=== PATIENT | female | born 1950 | race Caucasian/White ===

== ENCOUNTER 2019-10-28 11:04 | Outpatient (CLI) | payer MEDICARE, OTHER, SELFPAY ==
--- NOTE | ~2019-10-28 | US_ITS ---
EXAMINATION: US thyroid EXAM DATE: 10/28/2019 15:05 INDICATION: Goiter follow-up. Previous left thyroid nodule biopsy. TECHNIQUE: Multiple grayscale and Doppler images of the thyroid were obtained (by a technologist who performed the scan) and subsequently reviewed. Individual nodules and recommendations may be reporte d in accordance with TI-RADS system as designated by the 2017 ACR White Paper TI-RADS committee. Comp juvencio is made to prior examination from 10/05/2018, outside study dated 03/31/2018. FINDINGS: The right thyroid lobe measures 4.9 x 2.0 x 1.3 cm, the left measuring 4.6 x 1.8 x 1.2 cm. These dime nsions are mildly enlarged. There are multiple subcentimeter thyroid nodules (largest dimension 7 mm) , all appear unchanged compared to previous examination, not likely to be clinically significant. IMPRESSION: Multinodular goiter unchanged. Consider longer interval, 2 year follow-up thyroid ultraso und. Reviewed, dictated and finalized at location A. IMPRESSION: Multinodular goiter unchanged. Consider longer interval, 2 year fol low-up thyroid ultrasound.
== END 2019-10-28 11:05 | disposition home or self-care (01) ==
LOC: ANHIMG 11:10
PROVIDERS: PCP Internal Medicine; Visit Provider Otolaryngology
DX: E04.2 Nontoxic multinodular goiter (principal)
CPT/HCPCS: 76536

== ENCOUNTER 2019-11-01 08:25 | Outpatient (CLI) | payer MEDICARE, OTHER, SELFPAY | END 2019-11-01 08:26 | disposition home or self-care (01) | PROVIDERS: PCP Internal Medicine; Visit Provider Internal Medicine Gastroenterology | DX: Z01.812 Encounter for preprocedural laboratory examination (principal); Z20.828 Contact with and (suspected) exposure to other viral communicable diseases | CPT/HCPCS: 87635; C9803; U0003 ==

== ENCOUNTER 2019-11-04 01:10 | Day surgery (SDC) | payer MEDICARE, OTHER, SELFPAY ==
[2019-10-28 13:31] VITALS: BMI 28.5
[2019-11-04 08:24] VITALS: BP 111/68; PULSE 80; RESP 18; TEMP 36.1; O2SAT 99
[2019-11-04] MEDS: LACTATED RINGERS 1,000 ML 150 ML IV CONT (08:28)
--- NOTE | 2019-11-04 08:38 | PM.HPGS ---
History of Present Illness History of Present Illness Consent: Risks, benefits, and alternatives have been discussed and questions answered. Patient agrees to proceed with procedure. Chief complaint: neoplasm screening Narrative: Tamie German is a 69 year old W female referred for screening colonoscopy. Last colonoscopy was over 10 years ago. Patient was last seen by our service in August of 2017 found to have a paraesophageal hernia surgical recommendation was given to her. Unfortunately she never saw a surgeon and chills she had torsion of for esophageal hernia was seen [facility] for surgical intervention. Patient has a chronic history of intermittent diarrhea and constipation there is a diagnosis of irritable bowel syndrome. She does have a daughter with ulcerative colitis. Patient is on no blood seen medication. [facility] Past Medical History Medical History Anemia Anxiety CAD (coronary artery disease) DVT (deep venous thrombosis) Hyperlipidemia Hypothyroidism Surgical History Surgical History History of coronary artery stent placement x1, 2008 Family History Family History Mother Diabetes mellitus Family history of cardiovascular disease Sibling Diabetes mellitus Family history of cardiovascular disease Social History Social History Smoking status: Former smoker Alcohol intake: current Meds Home Medications and Allergies Home Medications Medication Instructions Recorded Confirmed Type atorvastatin 40 mg PO DAILY 10/28/19 10/28/19 History levothyroxine 50 mcg PO DAILY 10/28/19 11/04/19 History sertraline 100 mg PO DAILY 10/28/19 10/28/19 History Allergies Allergy/AdvReac Type Severity Reaction Status Date / Time rosuvastatin Allergy Unknown Anxiety Verified 11/04/19 08:22 Vital Signs Vital Signs - 24 hr 11/04/19 08:24 Temperature 36.1 C L Pulse Rate 80 Respiratory Rate 18 Blood Pressure 111/68 Pulse Oximetry 99 Exam Const: Orientation/consciousness: patient oriented x3 Resp: Auscultation: clear to auscultation bilaterally Cardio: Rate: regular rate Rhythm: regular rhythm Heart sounds: no murmurs GI: GI Palp: Yes Soft to palpation, No Tenderness to palpation present (GI), Yes No hepatosplenomegaly present and No Palpable mass present Auscultation: normal bowel sounds Neuro: General: patient oriented x3 and no focal motor deficits Extrem: General: no pedal edema Assessment and Plan Additional Plan Screening colonoscopy in average risk patient
--- NOTE | 2019-11-04 08:40 | WPDANESEPPF ---
Anes - Initial Pre Proc Eval Procedure: Operation Date: 11/04/19 09:00 Proposed Procedures p Screening Colonoscopy - Adi Roberson MD Date/Time: 11/04/19 08:40 Surgeon: Adi Roberson MD Pre Op Diagnosis: neoplasm screening Patient Data Age: 69 Gender: F Height: 1.6 m Weight: 72.4 kg Last Vital Signs Temp 36.1 C L 11/04/19 08:24 Pulse 80 11/04/19 08:24 Resp 18 11/04/19 08:24 BP 111/68 11/04/19 08:24 Pulse Ox 99 11/04/19 08:24 Allergies Allergy/AdvReac Type Severity Reaction Status Date / Time rosuvastatin Allergy Unknown Anxiety Verified 11/04/19 08:22 Home Medications Medication Instructions Recorded Confirmed Type atorvastatin 40 mg PO DAILY 10/28/19 10/28/19 History levothyroxine 50 mcg PO DAILY 10/28/19 11/04/19 History sertraline 100 mg PO DAILY 10/28/19 10/28/19 History Patient hx anesthesia problems: none Family hx anesthesia problems: none PMFSH Past Medical History Medical History Anemia Anxiety CAD (coronary artery disease) DVT (deep venous thrombosis) Hyperlipidemia Hypothyroidism Surgical History Surgical History History of coronary artery stent placement x1, 2009 Family History Family History Mother Diabetes mellitus Family history of cardiovascular disease Sibling Diabetes mellitus Family history of cardiovascular disease Social History Social History Smoking status: Former smoker Alcohol intake: current Anes - Eval Final PreProcedure Day of Procedure 11/04/19 08:40 Patient weight: overweight Heart: regular rate and rhythm Lungs: clear to auscultation and normal air movement Airway: Mallampati scale class II Neurological: alert and oriented Last oral intake: >/= 8 hours ASA classification: III Emergent: no Anesthetic plan: proceed Anesthesia type and monitoring: general GIVS and standard monitoring Informed Consent: The patient's anesthetic plan and its attendant risks and benefits were discussed with the patient/family/POA. Questions were solicited and answers provided to the satisfaction of the patient/family/POA.
[2019-11-04] MEDS: SIMETHICONE ORAL SUSPENSION 20 MG/0.3 ML 30 ML BOTTLE 0.6 ML IRRIGATION (09:22)
[2019-11-04 09:32] VITALS: BP 100/50; PULSE 67; RESP 18; O2SAT 100
[2019-11-04 09:42] VITALS: BP 99/57; PULSE 75; RESP 18; O2SAT 99
[2019-11-04 09:52] VITALS: BP 105/61; PULSE 73; RESP 18; O2SAT 97
== END 2019-11-04 09:59 | disposition home or self-care (01) ==
PROVIDERS: PCP Internal Medicine; Visit Provider Internal Medicine Gastroenterology
PROC: 0DJD8ZZ Inspection of Lower Intestinal Tract, Via Natural or Artificial Opening Endoscopic (ICD-10-PCS; CPT 45378; principal; 2019-11-04 09:00)
DX: Z12.11 Encounter for screening for malignant neoplasm of colon (principal); K64.1 Second degree hemorrhoids; K64.4 Residual hemorrhoidal skin tags; K57.30 Diverticulosis of large intestine without perforation or abscess without bleeding; K63.89 Other specified diseases of intestine; I25.10 Atherosclerotic heart disease of native coronary artery without angina pectoris; E78.5 Hyperlipidemia, unspecified; D64.9 Anemia, unspecified; E03.9 Hypothyroidism, unspecified; F41.9 Anxiety disorder, unspecified; Z86.718 Personal history of other venous thrombosis and embolism; Z87.891 Personal history of nicotine dependence; Z95.5 Presence of coronary angioplasty implant and graft
CPT/HCPCS: 45380; 88305; J2704; J7120

== ENCOUNTER 2020-01-30 06:24 | Emergency (ER) | payer MEDICARE, OTHER, SELFPAY ==
[2020-01-30] VITALS (8 sets, daily range): BP systolic 90–143; BP diastolic 55–63; PULSE 94–110; RESP 20–24; TEMP 37.3; O2SAT 92–97
--- NOTE | ~2020-01-30 | XR_ITS ---
EXAMINATION: XR chest 1V portable DATE: 01/30/2020 07:41 INDICATION: Shortness of breath. TECHNIQUE: A single frontal view of the chest was obtained. COMPARISON: None. FINDINGS: The patient is rotated to her left. A calcified right lung nodule and calcified right hilar lymph nodes are consistent with old granulomatous disease. There is a small left pleural effusion. T here are airspace opacities in left mid and lower lung zones. No pneumothorax. The heart size is norm al. IMPRESSION: 1. Airspace opacities in left mid and lower lung zones, consistent with atelectasis versus pneumonia. 2. Small left pleural effusion. Reviewed, dictated and finalized at location A. IMPRESSION: 1. Airspace opacities in left mid and lower lung zones, consistent with atelect asis versus pneumonia. 2. Small left pleural effusion.
--- NOTE | ~2020-01-30 | CT_ITS ---
EXAMINATION: CT brain wo con DATE: 01/30/2020 07:35 INDICATION: Dizziness. Weakness. TECHNIQUE: Computed tomography (CT) of the head was performed without intravenous contrast. The mA wa s adjusted according to patient size. Iterative reconstruction technique was employed. The dose-lengt h product was 681.00 mGy-cm. COMPARISON: None FINDINGS: There is no intracranial hemorrhage, acute infarction, or abnormal intracranial mass lesion . The ventricles are normal in size. There are likely changes of ocular lens replacement surgeries. T here is mild mucosal thickening in the paranasal sinuses. There are bilateral mastoid effusions. IMPRESSION: 1. Normal brain. Reviewed, dictated and finalized at location A. IMPRESSION: 1. Normal brain.
--- NOTE | 2020-01-30 06:34 | ECG_ITS ---
Measurements Intervals [place] Rate: 111 P: 60 [place]: 152 QRS: -2 QRSD: 81 T: 0 QT: 324 QTc: 441 Interpretive Statements SINUS TACHYCARDIA POSSIBLE LEFT ATRIAL ENLARGEMENT DELAYED PRECORDIAL R/S TRANSITION BORDERLINE ST-T WAVE ABNORMALITY- ANTEROLAT/INF LEADS ABNORMAL ECG Electronically Signed On 01-30-2020 15:22:48 CDT by Jamal Goins D.O.
--- NOTE | 2020-01-30 06:41 | ED.WEAKNESS ---
HPI - Weakness General Chief complaint: Weakness <Donna Lopes MD - Last Filed: 01/30/20 07:10> Stated complaint: weakness <Donna Lopes MD - Last Filed: 01/30/20 07:10> Time Seen by Provider: 01/30/20 06:39 <Donna Lopes MD - Last Filed: 01/30/20 07:10> Source: patient and EMS <Donna Lopes MD - Last Filed: 01/30/20 07:10> Mode of arrival: EMS <Donna Lopes MD - Last Filed: 01/30/20 07:10> Limitations: no limitations <Donna Lopes MD - Last Filed: 01/30/20 07:10> History of Present Illness HPI Narrative: Patient is a 69-year-old female with a history of hypothyroidism who presents for evaluation of subjective fever, chills, myalgias, cough and weakness. Patient reports she started feeling unwell on Friday, felt quite weak and was nauseated with numerous episodes of emesis. Patient called her primary care physician to see if she could get medication for the nausea and was referred to the emergency department but decided not to be evaluated on Friday. Patient states she has been worsening since that time. The dizziness that she had initially has now resolved. Patient states that she was given Zofran by EMS which improved her nausea. Patient states her family recently visited from [place] in [facility], but they were well without any symptoms. She states that she masks when going out in the community, otherwise has been isolating at home. Patient denies current chest pain, she does endorse some shortness of breath. She denies any rash, leg pain, leg swelling. <Donna Lopes MD - Last Filed: 01/30/20 07:10> Related Data Home medications: Home Medications Medication Instructions Recorded Confirmed atorvastatin 40 mg PO DAILY 10/28/19 10/28/19 levothyroxine 50 mcg PO DAILY 10/28/19 11/04/19 sertraline 100 mg PO DAILY 10/28/19 10/28/19 <Donna Lopes MD - Last Filed: 01/30/20 07:10> Allergies/Adverse reactions: Allergies Allergy/AdvReac Type Severity Reaction Status Date / Time rosuvastatin Allergy Unknown Anxiety Verified 01/30/20 06:38 <Donna Lopes MD - Last Filed: 01/30/20 07:10> Review of Systems Review of Systems: Narrative: CONSTITUTIONAL: Reports subjective fever, chills EYES: Denies visual changes, redness, or discharge. ENT: Denies rhinorrhea, congestion, sore throat, or otalgia. CARDIOVASCULAR: Denies chest pain, palpitations, or edema. RESPIRATORY: Reports cough and shortness of breath GASTROINTESTINAL: Denies abdominal pain, reports nausea and vomiting, denies diarrhea. GENITOURINARY: Denies dysuria or hematuria. SKIN: Denies rash or itching. MUSCULOSKELETAL: Denies back pain, joint pain, reports myalgias NEUROLOGIC: Denies headache, numbness, reports feeling diffusely weak <Donna Lopes MD - Last Filed: 01/30/20 07:10> PMFSH Past Medical History Medical History: Medical History Anemia Anxiety CAD (coronary artery disease) DVT (deep venous thrombosis) Hyperlipidemia Hypothyroidism <Donna Lopes MD - Last Filed: 01/30/20 07:10> Surgical History Surgical History: Surgical History History of coronary artery stent placement 2008 <Donna Lopes MD - Last Filed: 01/30/20 07:10> Social History Social History: Social History Smoking status: Former smoker Alcohol intake: current <Donna Lopes MD - Last Filed: 01/30/20 07:10> Exam Narrative: Exam Narrative: GENERAL: Awake, alert, conversant, fatigued appearing HEAD: Normocephalic, atraumatic. EYES: PERRLA and EOMI. ENT: Nares clear, no rhinorrhea or epistaxis. Mucous membranes dry NECK: Supple. CHEST: Hypoxemia, 92% on room air, no respiratory distress, breathing even and non labored HEART: Tachycardic rate, sinus rhythm ABDOMEN:Non
[2020-01-30 06:57] LABS: Alveolar/Arterial O2 Gradient 38.9 mmHg; Base Excess ABG 1.1 mEq/l (+/-2.0); Carboxyhemoglobin 0.9 % THb (0-2.0); Device ROOM AIR; Fractional Inspired Oxygen 21 %; HCO3 ABG 25.1 mEq/l (22.0-26.0); Methemoglobin ABG 0.2 %THb (0-1.5); Modified Allen's Test Pass; Oxygen Content ABG 17.1 %vol (16.0-22.0); Oxygen Saturation ABG 93.6 % (95.0-100.0); Oxyhemoglobin 91.4 % THb (90.0-100.0); PO2 ABG 65.3 mmHg (80.0-100.0); PO2 FiO2 Ratio Arterial Blood 3.11 %; Reduced Hemoglobin 7.5 %THb (0-5.0); Site Drawn RIGHT RADIAL; Total Hemoglobin 13.3 g/dL (12.0-18.0); pH ABG 7.438 (7.350-7.450)
[2020-01-30 07:00] LABS: Glucose Point of Care 111 (65-105)
[2020-01-30] MEDS: SODIUM CHLORIDE 0.9% IV 1,000 ML 999 ML IV CONT (07:01)
[2020-01-30 07:34] LABS: Basophils Percent Auto 0.2 % (0.2-1.2); Eosinophils Percent Auto 0.1 % (0-4.4); Hemoglobin 12.2 g/dL (12.0-15.0); Immature Granulocyte Absolute 0.06 K/mm3 (0.00-0.031); Immature Granulocyte Percent A 0.6 % (0-0.5); Lymphocytes Absolute Auto 0.55 K/mm3 (0.9-3.2); Lymphocytes Percent Auto 5.8 % (18.3-44.2); Mean Corpuscular Volume 94.1 fl (80-100); Mean Platelet Volume 9.9 fl (7.4-10.4); Monocytes Absolute Auto 0.5 K/mm3 (0.1-0.6); Neutrophils Absolute Auto 8.4 K/mm3 (1.3-6.7); Neutrophils Percent Auto 88.3 % (45.5-73.1); Platelet Count Result 180 k/mm3 (150-375); Red Blood Count 3.93 M/mm3 (4.2-5.4); Red Cell Distribution Width 12.6 % (11.5-14.5); White Blood Count 9.5 K/mm3 (4.5-10.0)
[2020-01-30 07:49] LABS: Prothrombin Time 13.3 Seconds (11.1-14.7)
[2020-01-30] MEDS: METOCLOPRAMIDE HCL INJ 10 MG/2 ML VIAL IV PUSH (07:58)
[2020-01-30 08:01] LABS: Alanine Aminotransferase 16 U/L (4-35); Albumin Level 3.8 g/dL (3.5-5.1); Alkaline Phosphatase 65 U/L (38-126); Anion Gap 6 mmol/L (8-16); Aspartate Amino Transferase 21 U/L (14-36); Bilirubin,Total 0.6 mg/dL (0.2-1.3); Blood Urea Nitrogen 15 mg/dL (7-17); Calcium 8.8 mg/dL (8.4-10.2); Carbon Dioxide 25 mmol/L (22-30); Chloride 104 mmol/L (98-107); Estimated CRCL calculation 63 ml/min; Estimated Glomerular Filt Rate > 60; Glucose 108 mg/dL (65-105); Potassium 4.1 mmol/L (3.4-5.0); Sodium 135 mmol/L (137-145)
[2020-01-30 08:02] LABS: Partial Thromboplastin Time 27.7 SECONDS (22.3-36.8)
[2020-01-30 08:08] LABS: Add Urine Microscopic? YES; Appearance Urine Clear (Clear); Bacteria Urine Trace /hpf; Bilirubin Urine Negative (Negative); Blood Urine Negative (Negative); Color Urine Yellow (Yellow); Glucose Urine UA Negative (Negative); Ketones Urine Trace mg/dL (Negative); Leukocyte Esterase Ur Negative LEU/UL (Negative); Mucus Urine Rare /lpf; Nitrate Urine Negative (Negative); Protein Urine Negative (Negative); RBC Urine 0-2 /hpf (0-2); Specific Grav Ur 1.021 (1.001-1.035); Squamous Epithelial Cell Urine Rare /hpf (Few); Urobilinogen Urine Negative mg/dL (<2.0); WBC Urine 0-3 /hpf
[2020-01-30 08:09] LABS: Lactic Acid Reflex 0.9 mmol/L (0.7-2.1); NT Pro B Type Natriuretic Pept 168 PG/ML (5-100); Troponin I < 0.012 ng/mL (0.000-0.034)
[2020-01-30] MEDS: MECLIZINE HCL 25 MG TABLET PO (09:32)
[2020-01-31 12:10] LABS: SARS-CoV-2 RNA PCR Negative
[2020-02-03 07:00] LABS: Procalcitonin <0.10 ng/mL (<0.10)
== END 2020-01-30 11:30 | disposition home or self-care (01) ==
PROVIDERS: Emergency Medicine; Emergency Provider Emergency Medicine; PCP Internal Medicine
DX: J18.9 Pneumonia, unspecified organism (principal); R42 Dizziness and giddiness; Z20.828 Contact with and (suspected) exposure to other viral communicable diseases; E03.9 Hypothyroidism, unspecified; F41.9 Anxiety disorder, unspecified; I25.10 Atherosclerotic heart disease of native coronary artery without angina pectoris; E78.5 Hyperlipidemia, unspecified; Z86.2 Personal history of diseases of the blood and blood-forming organs and certain disorders involving the immune mechanism; Z95.5 Presence of coronary angioplasty implant and graft; Z87.891 Personal history of nicotine dependence
CPT/HCPCS: 36415; 36600; 51701; 70450; 71045; 80053; 81001; 82375; 82805; 82948; 83050; 83605; 83880; 84145; 84484; 85025; 85610; 85730; 86140; 87040; 87635; 93005; 96361; 96365; 96367; 96375; 99284; A9270; C9803; J0131; J0456; J0696; J2765; J7030; U0003

== ENCOUNTER 2020-04-17 11:28 | Inpatient (IN) | payer MEDICARE, OTHER, SELFPAY ==
[2020-04-17] VITALS (10 sets, daily range): BP systolic 101–128; BP diastolic 48–89; PULSE 86–130; RESP 16–27; TEMP 36.3–36.7; O2SAT 86–99; BMI 27.0
--- NOTE | ~2020-04-17 | XR_ITS ---
EXAMINATION: XR chest 1V portable DATE: 04/17/2020 15:47 INDICATION: Hypoxia. Frontal headache. TECHNIQUE: A single frontal view of the chest was obtained. COMPARISON: Chest single view 01/30/2020 FINDINGS: The patient is rotated to her left. There is mild atelectasis at left lung base. Calcified right lung nodules and calcified right hilar and mediastinal lymph nodes are consistent with old gran ulomatous disease. There is chronic blunting of left lateral costophrenic angle. No pneumothorax. The heart size is normal. IMPRESSION: 1. Chronic blunting of left lateral costophrenic angle, which may be a prominent fat pad or small ple ural effusion. Consider a lateral radiograph. 2. Mild atelectasis at left lung base. Reviewed, dictated and finalized at location A. SITION OPERATOR IMPRESSION: 1. Chronic blunting of left lateral costophrenic angle, which may be a prominen t fat pad or small pleural effusion. Consider a lateral radiograph. 2. Mild atelectasis at left lung base.
--- NOTE | ~2020-04-17 | CT_ITS ---
EXAMINATION: CT brain wo con INDICATION: Headache COMPARISON: 01/30/2020 TECHNIQUE: Standard unenhanced head CT. The dose-length product (DLP) was 681.00 mGy-cm. The mA was a djusted according to patient size. Iterative reconstruction technique was employed. FINDINGS: There is no acute intraparenchymal hemorrhage. No evidence of mass lesion. No evidence of a cute infarction. There is mild periventricular and subcortical hypodensity probably related to small vessel ischemic disease. There is mild prominence of the sulci and ventricles related to cerebral atr ophy. Intracranial calcified cerebral atherosclerosis is noted. There are no extra-axial collections. There is no mass effect or midline shift. Changes in the globes are likely from ocular lens surgery. Bilateral mastoid effusions are noted. IMPRESSION: 1. No acute intracranial abnormality. 2. Age related findings. Reviewed, dictated and finalized at location A. O DISPATCHER
--- NOTE | 2020-04-17 11:35 | ECG_ITS ---
Measurements Intervals [place] Rate: 84 P: 61 [place]: 126 QRS: -15 QRSD: 80 T: -5 QT: 381 QTc: 451 Interpretive Statements SINUS RHYTHM VOLTAGE CRITERIA FOR LVH BORDERLINE ST-T WAVE ABNORMALITY- INFERIOR LEADS BORDERLINE ECG Electronically Signed On 04-17-2020 11:39:44 HANDBAG STITCHER by Jaaml Goins D.O.
[2020-04-17 11:58] LABS: Add Urine Microscopic? YES; Appearance Urine Cloudy (Clear); Bilirubin Urine Negative (Negative); Blood Urine Negative (Negative); Color Urine Yellow (Yellow); Glucose Urine UA Negative (Negative); Ketones Urine Trace mg/dL (Negative); Leukocyte Esterase Ur Negative LEU/UL (Negative); Nitrate Urine Negative (Negative); Protein Urine 1+ mg/dL (Negative); RBC Urine 0-2 /hpf (0-2); Specific Grav Ur 1.015 (1.001-1.035); Squamous Epithelial Cell Urine Rare /hpf (Few); Urobilinogen Urine Negative mg/dL (<2.0); WBC Urine 0-3 /hpf
[2020-04-17 12:04] LABS: Glucose Point of Care 123 (65-105)
[2020-04-17] MEDS: MORPHINE SULFATE (*CRX) 4 MG/ML INJ IV PUSH (12:35)
[2020-04-17] MEDS: ONDANSETRON INJ 4 MG/2 ML VIAL IV PUSH (12:35)
[2020-04-17 12:50] LABS: Basophils Percent Auto 0.2 % (0.2-1.2); Hematocrit 38.3 % (37.0-47.0); Hemoglobin 12.8 g/dL (12.0-15.0); Immature Granulocyte Absolute 0.03 K/mm3 (0.00-0.031); Immature Granulocyte Percent A 0.2 % (0-0.5); Lymphocytes Absolute Auto 0.61 K/mm3 (0.9-3.2); Mean Corpuscular HGB Conc 33.4 g/dl (32-36); Mean Corpuscular Hemoglobin 31.1 pg (26-34); Mean Platelet Volume 9.4 fl (7.4-10.4); Monocytes Absolute Auto 0.4 K/mm3 (0.1-0.6); Monocytes Percent Auto 3.5 % (2.6-8.5); Neutrophils Absolute Auto 11.2 K/mm3 (1.3-6.7); Neutrophils Percent Auto 91.1 % (45.5-73.1); Platelet Count Result 231 k/mm3 (150-375); Red Blood Count 4.12 M/mm3 (4.2-5.4); Red Cell Distribution Width 12.4 % (11.5-14.5); White Blood Count 12.3 K/mm3 (4.5-10.0)
--- NOTE | 2020-04-17 12:51 | ED.GENADULT ---
HPI - General Adult General Chief complaint: Headache Stated complaint: HEADACHE/NAUSEA Time Seen by Provider: 04/17/20 12:09 Source: patient History of Present Illness HPI narrative: Patient is a 69 y/o female complaining bilateral frontal and occipital headache starting earlier today. She describes her pain as sharp and rate it as 10/10. She states that this is the worst headache she ever had. She took Tylenol and Ibuprofen, which did not help. She has some neck pain, nausea and vomiting. She denies any fever, chill or any focal weakness/numbness. Related Data Home Medications Medication Instructions Recorded Confirmed atorvastatin 40 mg PO DAILY 10/28/19 10/28/19 levothyroxine 50 mcg PO DAILY 10/28/19 11/04/19 sertraline 100 mg PO DAILY 10/28/19 10/28/19 hydrocodone-acetaminophen 1 tablet PO Q6H PRN 04/17/20 nitroglycerin 0.4 mg SUBLINGUAL Q5-15M PRN 04/17/20 04/17/20 Allergies Allergy/AdvReac Type Severity Reaction Status Date / Time rosuvastatin Allergy Unknown Anxiety Verified 04/17/20 18:50 Review of Systems Constitutional: Constitutional: Denies chills, Denies fever(s), Reports headache(s) and Denies weakness Eyes: Eyes: Denies blurry vision ENT: Reports headache(s) and Denies neck pain Cardiovascular: Cardiovascular: Denies chest pain and Denies dyspnea Respiratory: Respiratory: Denies cough and Denies dyspnea Gastrointestinal: Gastrointestinal: Denies abdominal pain, Denies diarrhea, Reports nausea and Reports vomiting Genitourinary: Genitourinary: Denies hematuria and Denies dysuria Musculoskeletal: Musculoskeletal: Denies back pain and Denies neck pain Neurologic: Reports headache(s) and Denies weakness [facility] Past Medical History Medical History (Updated 04/17/20 @ 19:05 by Irina Paz MD) Anemia Anxiety CAD (coronary artery disease) DVT (deep venous thrombosis) Hyperlipidemia Hypothyroidism Surgical History Surgical History History of coronary artery stent placement [id number] Family History Family History Mother Diabetes mellitus Family history of cardiovascular disease Sibling Diabetes mellitus Family history of cardiovascular disease Social History Social History Smoking packs per day: 2 Smoking cigarettes per day: 40.0 Years smoked: 40 Smoking pack-years: 80.00 Smoking status: Former smoker Tobacco type: cigarettes Alcohol intake: former Substance use: never Gender identity (if verbalized by the patient): Female Spiritual care concerns: No Exam Const: General: no acute distress and well developed Orientation/consciousness: oriented to person, oriented to place, oriented to time and patient oriented x3 HENMT: Head: normocephalic Ears: external ears normal General nose exam: Normal external nose present Eyes: General: appearance normal, both eyes and all related structures Conjunctivae: conjunctivae normal Neck: Neck: normal visual inspection and full ROM Chest: Chest palpation & inspection: normal inspection of the chest and no tenderness Resp: Effort & Inspection: normal respiratory effort Auscultation: clear to auscultation bilaterally Cardio: Rate: regular rate Rhythm: regular rhythm GI: GI Palp: No abdominal tenderness and Yes Soft to palpation Skin: General skin exam: normal color and turgor normal Neuro: General: oriented to person, oriented to place, oriented to time and patient oriented x3 Cranial nerves: Yes CN's II-XII intact bilaterally Cognition (Neuro): normal cognition Speech: normal speech Motor exam (neuro): 5/5 motor strength present throughout Sensory Exam: normal sensation Coordination: [id number] test normal and [id number] test normal Extrem: General: normal to inspection, full ROM and no pedal edema Psych: Appearance: grossly normal Mental S
[2020-04-17 13:00] LABS: Alanine Aminotransferase 13 U/L (4-35); Albumin Level 3.8 g/dL (3.5-5.1); Alkaline Phosphatase 71 U/L (38-126); Anion Gap 6 mmol/L (8-16); Aspartate Amino Transferase 27 U/L (14-36); Bilirubin,Total 0.4 mg/dL (0.2-1.3); Blood Urea Nitrogen 18 mg/dL (7-17); Calcium 9.4 mg/dL (8.4-10.2); Carbon Dioxide 28 mmol/L (22-30); Chloride 103 mmol/L (98-107); Estimated CRCL calculation 63 ml/min; Estimated Glomerular Filt Rate > 60; Glucose 117 mg/dL (65-105); Lipase 66 U/L (23-300); Sodium 137 mmol/L (137-145)
[2020-04-17 13:02] LABS: CRP 0.8 mg/dL (<1.0)
[2020-04-17 13:06] LABS: Erythrocyte Sedimentation Rate 75 mm/hr (0-20)
[2020-04-17] MEDS: SODIUM CHLORIDE 0.9% IV 1,000 ML 999 ML IV CONT ×2 (13:27→15:35)
[2020-04-17] MEDS: fentaNYL CITRATE INJ (*CRX) 100 MCG/2 ML VIAL 50 MCG IV PUSH (13:52)
[2020-04-17] MEDS: fentaNYL CITRATE INJ (*CRX) 100 MCG/2 ML VIAL (14:33)
[2020-04-17] MEDS: LORazepam INJ (*CRX) 2 MG/ML VIAL (14:34)
--- NOTE | 2020-04-17 15:13 | PC.NURSE ---
Pt O2 sat 86% on room air after med administration, pt placed on 2 L NC O2 at this time. Pt is alert to verbal stimuli.
--- NOTE | 2020-04-17 15:15 | PC.NURSE ---
Pt O2 sat 96% on 2 L NC O2.
--- NOTE | 2020-04-17 15:53 | ECG_ITS ---
Measurements Intervals [place] Rate: 119 P: 67 DC: 145 QRS: -10 QRSD: 80 T: -27 QT: 257 QTc: 362 Interpretive Statements SINUS TACHYCARDIA ST-T WAVE ABNORMALITY IN DIFFUSE LEADS- CONSIDER ISCHEMIA BASELINE ARTIFACT- II, III ABNORMAL ECG Electronically Signed On 04-17-2020 16:50:47 SERGING MACHINE OPERATOR by Jamal Goins D.O.
[2020-04-17 16:37] LABS: Appearance CSF Cloudy (Clear); CSF source CSF; Color CSF Colorless (Colorless); Lymphocytes CSF 7 % (40-80); Monocytes CSF 5 % (15-45); Neutrophils CSF 88 % (0-6); Nucleated Cell CSF 6456 /uL (0-5); Red Blood Cell CSF 0 (0-2)
[2020-04-17] MEDS: ACYCLOVIR SODIUM IVPB 700 MG in DEXTROSE 5% IN WATER 250 ML 266 MG IVPB ×2 (17:10→22:12)
[2020-04-17 17:16] LABS: Lactic Acid Reflex < 0.5 mmol/L (0.7-2.1)
[2020-04-17 17:27] LABS: Glucose CSF < 20 mg/dL (40-70); Total Protein CSF 426 mg/dL (12-60)
--- NOTE | 2020-04-17 18:40 | ADMGEN ---
This patient, Tamie German, was admitted to 3 Med Surg Room 328-01 @ 1840. Patient/family oriented to hospital policies and general routines including ID bracelet, bed and alarms, visiting hours, pain management, procedures, bathroom and other care routines, personal items, smoking policy, room service/diet, and visiting hours. Information on how to activate the Rapid Response Team has been discussed. Patient/Family are encouraged to report perceived risks to care and to ask questions if they do not understand what they are told or what they should do.
[2020-04-17] MEDS: SODIUM CHLORIDE 0.9% IV 1,000 ML 125 ML IV CONT (20:16)
[2020-04-17] MEDS: AMPICILLIN 2 GM/NS 100 ML 2 GM/100 ML BAG IVPB ×2 (20:17→23:32)
--- NOTE | 2020-04-17 21:00 | PM.IMHP ---
H&P: HPI History of Present Illness Date/Time: 04/17/20 21:00 Chief complaint: Headache. Narrative: Tamie German is a pleasant 69-year-old female with history of shingles, coronary artery disease status post stent x1 in 2008, previous right lower extremity DVT, hypothyroidism, GERD, and anxiety who presented to the emergency department earlier today from home for evaluation of headache. She developed a fever around 07:00 this morning, and within 15 minutes it had become what she describes as the worst headache she has ever had. She describes a bifrontal and occipital headache that is sharp and stabbing in nature, rated 10/10 at its worst. Tylenol and ibuprofen did not give her any relief, and neither did the morphine or fentanyl she was given in the emergency department. She gives no aggravating factors and specifically denies photophobia, phonophobia, and pain with flexion of the neck. Associated symptoms include nausea and dry heaves as well as chills, shakes, and slight foggy feeling. Within the last couple of hours she has developed some discomfort in the upper cervical paraspinous muscles. Brain CT on arrival to the emergency department showed no acute findings. Lumbar puncture was performed and CSF is concerning for meningitis with CSF pleocytosis, low CSF glucose, and elevated CSF protein. With further questioning she reports a history of shingles. Over the last week to week and a half she has had multiple dental procedures including full upper and lower extractions in anticipation of dentures. Review of Systems Review of Systems: Narrative: Twelve systems were reviewed with pertinent positives and negatives as per HPI. No fever. She has mild rhinorrhea and postnasal drip and will occasionally have a dry cough at nighttime which she attributes to the postnasal drip. No significant sinus congestion, otalgia, or odynophagia. She denies recent travel and sick contacts. No exposure to those positive for COVID-19. No history of meningitis. She denies back pain. No focal weakness or paresthesias. No acute auditory or visual changes. She denies chest pain and shortness of breath. No cough. No diarrhea or dysuria. Except as documented, all other systems were reviewed and are negative. [facility] Past Medical History Medical History (Updated 04/17/20 @ 22:54 by Lesia Leavitt PA-C) Anemia With history of blood transfusion. Anxiety Coronary artery disease Deep vein thrombosis of right lower extremity Gastroesophageal reflux disease Hiatal hernia Hyperlipidemia Hypothyroidism Kidney stones Shingles Surgical History Surgical History (Updated 04/17/20 @ 22:50 by Lesia Leavitt PA-C) History of bilateral cataract extraction History of coronary artery stent placement (~2008) x1. History of hysterectomy for benign disease Family History Family History Mother Diabetes mellitus Family history of cardiovascular disease Sibling Diabetes mellitus Family history of cardiovascular disease Social History Social History (Updated 04/17/20 @ 22:50 by Lesia Leavitt PA-C) Social History: Surrogate decision maker: Ac German, spouse. Code status: Full code. Smoking packs per day: 2 Smoking cigarettes per day: 40.0 Years smoked: 40 Smoking pack-years: 80.00 Smoking status: Former smoker Tobacco type: cigarettes Alcohol intake: former Substance use: never Additional living arrangements comments: Resides with her in [place]. 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 Gender identity (if verbalized by the patient): Female Spiritual care concerns: No Meds Home Medications and Allergies Home Medications Medication Instructions Recorded Confirmed Type atorvastatin 40 mg PO DAILY 10/28/19 04/17/20 History levothyroxine 50 mcg PO DAILY 10/28/19 04/17/20 History sertraline 100 mg PO DAILY 0
[2020-04-17] MEDS: ACETAMINOPHEN 325 MG TABLET 650 MG PO (22:35)
[2020-04-18] VITALS (10 sets, daily range): BP systolic 101–129; BP diastolic 42–59; PULSE 78–99; RESP 16–20; TEMP 36.4–37.3; O2SAT 93–95
[2020-04-18] MEDS: ACETAMINOPHEN 325 MG TABLET 650 MG PO ×3 (02:43→23:52)
[2020-04-18] MEDS: AMPICILLIN 2 GM/NS 100 ML 2 GM/100 ML BAG IVPB ×6 (02:44→23:46)
[2020-04-18] MEDS: ACYCLOVIR SODIUM IVPB 700 MG in DEXTROSE 5% IN WATER 250 ML 266 MG IVPB (05:07)
[2020-04-18] MEDS: LEVOTHYROXINE SODIUM 50 MCG TABLET PO (06:04)
[2020-04-18 06:29] LABS: Basophils Percent Auto 0.1 % (0.2-1.2); Hematocrit 32.1 % (37.0-47.0); Hemoglobin 10.6 g/dL (12.0-15.0); Immature Granulocyte Absolute 0.04 K/mm3 (0.00-0.031); Immature Granulocyte Percent A 0.3 % (0-0.5); Lymphocytes Absolute Auto 0.71 K/mm3 (0.9-3.2); Lymphocytes Percent Auto 5.3 % (18.3-44.2); Mean Corpuscular Hemoglobin 31.1 pg (26-34); Mean Corpuscular Volume 94.1 fl (80-100); Mean Platelet Volume 9.4 fl (7.4-10.4); Monocytes Absolute Auto 0.2 K/mm3 (0.1-0.6); Monocytes Percent Auto 1.4 % (2.6-8.5); Neutrophils Absolute Auto 12.4 K/mm3 (1.3-6.7); Neutrophils Percent Auto 92.9 % (45.5-73.1); Platelet Count Result 224 k/mm3 (150-375); Red Blood Count 3.41 M/mm3 (4.2-5.4); Red Cell Distribution Width 12.7 % (11.5-14.5); White Blood Count 13.3 K/mm3 (4.5-10.0)
[2020-04-18 06:38] LABS: Alanine Aminotransferase 15 U/L (4-35); Albumin Level 3.3 g/dL (3.5-5.1); Alkaline Phosphatase 50 U/L (38-126); Anion Gap 8 mmol/L (8-16); Aspartate Amino Transferase 23 U/L (14-36); Bilirubin,Total 0.1 mg/dL (0.2-1.3); Blood Urea Nitrogen 13 mg/dL (7-17); CRP 8.1 mg/dL (<1.0); Calcium 8.2 mg/dL (8.4-10.2); Carbon Dioxide 25 mmol/L (22-30); Chloride 105 mmol/L (98-107); Estimated CRCL calculation 71 ml/min; Estimated Glomerular Filt Rate > 60; Glucose 205 mg/dL (65-105); Potassium 3.9 mmol/L (3.4-5.0); Sodium 138 mmol/L (137-145)
[2020-04-18] MEDS: SODIUM CHLORIDE 0.9% IV 1,000 ML 125 ML IV CONT ×3 (07:44→16:24)
[2020-04-18 07:46] LABS: Thyroid Stimulating Hormone Reflex 0.104 uIU/mL (0.465-4.68)
[2020-04-18] MEDS: ATORVASTATIN 40 MG TABLET PO (09:04)
[2020-04-18] MEDS: SERTRALINE HCL 50 MG TABLET 100 MG PO (09:04)
[2020-04-18 09:39] LABS: Free T4 Free Thyroxine Reflex 1.03 ng/dL (0.78-2.19)
[2020-04-18 10:28] LABS: Total Triiodothyronine (T3) 0.57 NG/ML (0.97-1.69)
--- NOTE | 2020-04-18 12:56 | WPDINFPN2 ---
Progress Note: A&P Assessment and Plan (1) Meningitis: Code(s): G03.9 - Meningitis, unspecified Status: Acute Assessment and Plan: YANEZ Meningitis REC Vanc and Ctx and Amp, f/u micro Subjective Date/time seen: 04/18/20 12:56 Objective Data Vital Signs Vital Signs: Vital Signs - 24 hr 04/17/20 13:28 04/17/20 15:09 04/17/20 16:09 Temperature Pulse Rate 102 H 130 H 122 H Respiratory Rate 24 H 22 H 17 Blood Pressure 128/64 118/56 L 112/48 L Pulse Oximetry 99 86 L 97 04/17/20 17:13 04/17/20 18:21 04/17/20 18:45 Temperature Pulse Rate 113 H 122 H 124 H Respiratory Rate 20 18 18 Blood Pressure 114/56 L 113/54 L 114/56 L Pulse Oximetry 95 93 93 04/17/20 19:03 04/17/20 20:00 04/18/20 00:00 Temperature 36.3 C L 36.4 C L 36.4 C Pulse Rate 105 H 96 91 Respiratory Rate 18 16 20 Blood Pressure 101/54 L 106/60 101/42 L Pulse Oximetry 98 96 95 04/18/20 04:00 04/18/20 05:00 04/18/20 07:10 Temperature 37.3 C Pulse Rate 79 90 Respiratory Rate 16 Blood Pressure 107/55 L Pulse Oximetry 95 93 04/18/20 08:00 04/18/20 12:00 Temperature 36.9 C 36.4 C Pulse Rate 87 81 Respiratory Rate 16 16 Blood Pressure 108/59 L 105/53 L Pulse Oximetry 93 94 Intake/Output Intake/Output: Intake & Output 04/16/20 04/16/20 04/17/20 04/18/20 00:59 23:59 23:59 23:59 Intake Total 2978 3454 Output Total 900 Balance 2978 2554 Meds/Results Medications: Active Medications Generic Name Dose Route Start Last Admin Trade Name Freq PRN Reason Stop Dose Admin Acetaminophen 650 mg 04/17/20 16:50 04/18/20 02:43 Acetaminophen 325 Mg Tablet PO 650 mg Q4H PRN Administration Mild Pain (1-3) or Fever Atorvastatin Calcium 40 mg 04/18/20 09:00 04/18/20 09:04 Atorvastatin 40 Mg Tablet PO 40 mg DAILY BEAN Administration Dexamethasone Sodium Phosphate 10 mg 04/17/20 18:45 04/18/20 12:24 Dexamethasone Sod Phos Inj 10 Mg/Ml 1 Ml Vial IV PUSH 10 mg Q6H BEAN Administration Acyclovir Sodium 700 mg/ 264 mls @ 266 mls/hr 04/17/20 22:00 04/18/20 06:07 Dextrose IVPB Infused Q8HR BEAN Infusion Sodium Chloride 1,000 mls @ 75 mls/hr 04/17/20 16:50 04/18/20 09:10 Normal Saline Iv IV CONT 125 mls/hr .[id number] BEAN Administration Ampicillin Sodium 2 gm in 100 mls @ 200 mls/hr 04/17/20 19:00 04/18/20 12:23 Ampicillin 2 Gm/Ns 100 Ml IVPB 200 mls/hr Q4H BEAN Administration Ceftriaxone Sodium 2 gm in 100 mls @ 200 mls/hr 04/18/20 04:30 04/18/20 04:17 Rocephin 2 Gm/D5w 100 Ml IVPB Infused Q12H BEAN Infusion Vancomycin HCl 1,000 mg in 250 mls @ 250 mls/hr 04/18/20 06:00 04/18/20 07:03 Vancomycin 1,000 Mg/D5w 250 Ml IVPB Infused Q18H BEAN Infusion Levothyroxine Sodium 50 mcg 04/18/20 06:30 04/18/20 06:04 Levothyroxine Sodium 50 Mcg Tablet PO 50 mcg 0630 BEAN Administration Sertraline HCl 100 mg 04/18/20 09:00 04/18/20 09:04 Sertraline Hcl 50 Mg Tablet PO 100 mg DAILY BEAN Administration Radiology Results: ITS Impressions Head CT 04/17/20 13:06 IMPRESSION: 1. No acute intracranial abnormality. 2. Age related findings. Chest X-Ray 04/17/20 15:49 IMPRESSION: 1. Chronic blunting of left lateral costophrenic angle, which may be a prominent fat pad or small pleural effusion. Consider a lateral radiograph. 2. Mild atelectasis at left lung base. Labs Labs: Laboratory Results - last 24 hr 04/17/20 04/17/20 04/17/20 12:38 12:38 12:38 WBC RBC Hgb Hct MCV MCH MCHC RDW Plt Count MPV Immature Gran % (Auto) Neut % (Auto) Lymph % (Auto) [place] % (Auto) Eos % (Auto) Baso % (Auto) Lymph # (Auto) [place] # (Auto) Eos # (Auto) Baso # (Auto) Abs Immat Gran (auto) Absolute Neuts (auto) Absolute Nucleated RBC Nucleated RBC % ESR 75 H Sodium 137 Potassium 4.0 Chloride 103 Carbon Dioxide 28 Ani
--- NOTE | 2020-04-18 15:22 | CONS_ITS ---
DATE OF CONSULTATION: REASON FOR CONSULTATION: Meningitis. HISTORY OF PRESENT ILLNESS: A 69-year-old female on no immunosuppressants at home. No recent antibiotics. She has had no previous cranial surgery and no prosthetic devices. She presented to the emergency room yesterday from home with acute onset of diffuse headache, now located over the frontal area and relieved over the occipital area. She was afebrile on admission. She was noted to have leukocytosis. She had a spinal tap performed and has been started on vancomycin, ceftriaxone, ampicillin, and acyclovir. She denies any mental status changes subjectively. No sore throat. No fevers higher than 37.8, and no chills or sweats. ALLERGIES: ROSUVASTATIN. HABITS: Ex-smoker. No alcohol. PRESENT MEDICATIONS: As above. She is also on dexamethasone acutely. PAST MEDICAL HISTORY: Hyperlipidemia, hypothyroidism, CAD, previous DVT, GERD, hiatal hernia, nephrolithiasis, remote history of herpes zoster, cataracts, hysterectomy. FAMILY HISTORY: Not pertinent to her present illness. 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 Lives locally. . REVIEW OF SYSTEMS: 14-point review otherwise negative. PHYSICAL EXAMINATION: GENERAL: This is an elderly female who appears her actual age. No acute distress. Alert, awake, and conversant. VITAL SIGNS: Afebrile, 105/53, 81, 16, 94%. SKIN: Warm and dry. EENT: The conjunctivae are normal. Pupils equal, round, reactive. The oropharynx, oral mucosa normal. NECK: No masses, thyromegaly or meningismus. LUNGS: Clear to auscultation and percussion. CARDIAC: Regular rate and rhythm. No murmur, gallop, or rub. ABDOMEN: Obese, nontender, soft. No organomegaly. EXTREMITIES: Well perfused. No clubbing, cyanosis, or edema. NEUROLOGIC: Cranial nerves grossly intact and she has normal muscle tone. LABORATORY DATA: CSF, no organisms seen, many white cells. Culture in process. No growth after short incubation. Blood cultures also no growth so far. White count is 12.3 on arrival, now 13.3, hemoglobin 10.6, platelets of 224. She has a left shift seen on differential. Prothrombin time normal. Electrolytes normal. Glucose initially 117, now 205. Liver function tests normal except for an albumin of 3.3. Urinalysis, minimal abnormalities not suggestive of infection. Spinal fluid, no red cells, 6456 white cells, 88% PMNs, glucose 120, protein 426. Coronavirus assay in process. IMAGING: Chest x-ray, chronic blunting of the left costophrenic angle and atelectasis. CT of the brain, age-related findings. ASSESSMENT: 1. Headache due to meningitis, formula suggests bacterial etiology. I doubt varicella zoster or herpes simplex virus 1 encephalitis. 2. Hypothyroidism. 3. Hyperglycemia, probably related to her steroid rather than type 2 diabetes mellitus. RECOMMENDATIONS: 1. Stop acyclovir. Continue other 3 drugs. 2. Follow up on microbiology testing. 3. Supportive care. Thank you very much for asking me to see her. CHIP FREED M.D. MANUFACTURING QUALITY TECHNICIAN MANUFACTURING QUALITY TECHNICIAN D I MT: [place]
--- NOTE | 2020-04-18 16:24 | PM.IMPN ---
Progress Note: A&P Assessment and Plan (1) Meningitis: Code(s): G03.9 - Meningitis, unspecified Status: Suspected Assessment and Plan: Patient presents with sudden onset headache and fever, showing clinical improvement today. LP performed in ED. CSF demonstrates a pleocytosis, low glucose and elevated protein consistent with a bacterial etiology. CSF culture pending. Blood cultures pending. Appreciate Dr Valdez's input. Stop acyclovir and continue IV ampicillin, vancomycin, ceftriaxone while awaiting CSF culture. Continue supportive care with Tylenol for fevers or headache. (2) Person under investigation for COVID-19: Code(s): Z20.828 - Contact with and (suspected) exposure to other viral communicable diseases Status: Acute Assessment and Plan: COVID pending although seems less likely. No respiratory symptoms today. CXR with some mild atelectasis and chronic changes. Add IS. (3) Hypothyroidism: Qualifiers: Hypothyroidism type: unspecified Qualified Code(s): E03.9 - Hypothyroidism, unspecified Code(s): E03.9 - Hypothyroidism, unspecified Status: Chronic Assessment and Plan: Maintained on home levothyroxine. (4) Hyperlipidemia: Qualifiers: Hyperlipidemia type: unspecified Qualified Code(s): E78.5 - Hyperlipidemia, unspecified Code(s): E78.5 - Hyperlipidemia, unspecified Status: Chronic Assessment and Plan: Maintained on home statin therapy. (5) Coronary artery disease: Qualifiers: Coronary Disease-Associated Artery/Lesion type: unspecified vessel or lesion type [place] vs. transplanted heart: [place] heart Associated angina: without angina Qualified Code(s): I25.10 - Atherosclerotic heart disease of [place] coronary artery without angina pectoris Code(s): I25.10 - Atherosclerotic heart disease of [place] coronary artery without angina pectoris Status: Chronic Assessment and Plan: Stable, no chest pain. Continue home statin therapy. Subjective Date/time seen: 04/18/20 1200 Interval history: Ms. German is a pleasant 69yo F admitted for headache and suspected meningitis. She happily reports her headache is much improved today. Still having some neck discomfort. She was quite nauseous yesterday with dry heaves, resolved now and has tolerated some oral intake. Overall feels better than when she came in. She denies chest pain or shortness of breath. Denies rash. Review of Systems Review of Systems: All systems reviewed & are unremarkable except as noted in HPI and below Exam Narrative: Exam Narrative: General: Female resting comfortably supine in bed in no acute distress. HEENT: Normocephalic, EOMI, oral mucosa moist, negative meningeal signs. Cardiovascular: Rate and rhythm are regular. Respiratory: Lungs clear to auscultation all [place]. Respirations even and nonlabored. Abdomen: Soft, non-tender, non-distended, bowel sounds present. Extremities: Peripheral pulses intact. No edema. Neuro: No focal neurological deficits. Speech is clear. Objective Data Vital Signs Vital Signs: Last Vital Signs Temp 97.6 F 04/18/20 12:00 Pulse 78 04/18/20 12:00 Resp 16 04/18/20 12:00 BP 105/53 L 04/18/20 12:00 Pulse Ox 94 04/18/20 12:00 Intake/Output Intake/Output: Intake & Output 04/16/20 04/16/20 04/17/20 04/18/20 00:59 23:59 23:59 23:59 Intake Total 2978 3794 Output Total 900 Balance 2978 9646 Meds/Results Medications: Active Medications Generic Name Dose Route Start Last Admin Trade Name Freq PRN Reason Stop Dose Admin Acetaminophen 650 mg 04/17/20 16:50 04/18/20 15:07 Acetaminophen 325 Mg Tablet PO 650 mg Q4H PRN Admin
[2020-04-18 20:51] LABS: SARS-CoV-2 RNA PCR Negative
[2020-04-18] MEDS: IBUPROFEN 600 MG TABLET PO (21:37)
[2020-04-19] VITALS (8 sets, daily range): BP systolic 105–118; BP diastolic 28–42; PULSE 61–90; RESP 18; TEMP 36.6–36.7; O2SAT 96–97
[2020-04-19] MEDS: AMPICILLIN 2 GM/NS 100 ML 2 GM/100 ML BAG IVPB ×6 (03:28→23:42)
[2020-04-19 05:31] LABS: Basophils Percent Auto 0.1 % (0.2-1.2); Hematocrit 30.6 % (37.0-47.0); Immature Granulocyte Absolute 0.08 K/mm3 (0.00-0.031); Immature Granulocyte Percent A 0.6 % (0-0.5); Lymphocytes Absolute Auto 0.95 K/mm3 (0.9-3.2); Lymphocytes Percent Auto 6.8 % (18.3-44.2); Mean Corpuscular HGB Conc 32.7 g/dl (32-36); Mean Corpuscular Hemoglobin 30.9 pg (26-34); Mean Corpuscular Volume 94.4 fl (80-100); Mean Platelet Volume 9.9 fl (7.4-10.4); Monocytes Absolute Auto 0.4 K/mm3 (0.1-0.6); Monocytes Percent Auto 2.8 % (2.6-8.5); Neutrophils Absolute Auto 12.4 K/mm3 (1.3-6.7); Neutrophils Percent Auto 89.7 % (45.5-73.1); Platelet Count Result 190 k/mm3 (150-375); Red Blood Count 3.24 M/mm3 (4.2-5.4); Red Cell Distribution Width 13.1 % (11.5-14.5); White Blood Count 13.9 K/mm3 (4.5-10.0)
[2020-04-19 05:41] LABS: Anion Gap 7 mmol/L (8-16); Blood Urea Nitrogen 16 mg/dL (7-17); Calcium 8.4 mg/dL (8.4-10.2); Carbon Dioxide 26 mmol/L (22-30); Chloride 109 mmol/L (98-107); Estimated CRCL calculation 71 ml/min; Estimated Glomerular Filt Rate > 60; Glucose 162 mg/dL (65-105); Potassium 3.6 mmol/L (3.4-5.0); Sodium 142 mmol/L (137-145)
[2020-04-19 05:50] LABS: Hemoglobin A1C 5.1 % (<5.7)
[2020-04-19 06:11] LABS: Vancomycin Trough 14.6 ug/mL (10.0-20.0)
[2020-04-19] MEDS: IBUPROFEN 600 MG TABLET PO ×3 (06:31→22:10)
[2020-04-19] MEDS: LEVOTHYROXINE SODIUM 50 MCG TABLET PO (06:32)
[2020-04-19] MEDS: SODIUM CHLORIDE 0.9% IV 1,000 ML 75 ML IV CONT (06:40)
[2020-04-19] MEDS: ACETAMINOPHEN 325 MG TABLET 650 MG PO ×4 (07:31→23:44)
[2020-04-19] MEDS: ATORVASTATIN 40 MG TABLET PO (09:36)
[2020-04-19] MEDS: SERTRALINE HCL 50 MG TABLET 100 MG PO (09:36)
[2020-04-19 10:28] LABS: Herpes Simplex Type 1 DNA PCR Not Detected (Not Detected); Herpes Simplex Type 2 DNA PCR Not Detected (Not Detected)
--- NOTE | 2020-04-19 15:36 | PM.IMPN ---
Progress Note: A&P Assessment and Plan (1) Meningitis: Code(s): G03.9 - Meningitis, unspecified Status: Suspected Assessment and Plan: Patient presents with sudden onset headache and fever, showing clinical improvement today. LP performed in ED. CSF demonstrates a pleocytosis, low glucose and elevated protein consistent with a bacterial etiology. CSF culture pending without organisms identified. Blood cultures pending with no growth to date. Appreciate Dr Valdez's input. Continue IV ampicillin, vancomycin, ceftriaxone while awaiting CSF culture. Continue supportive care with Tylenol for fevers or headache. (2) Hypothyroidism: Qualifiers: Hypothyroidism type: unspecified Qualified Code(s): E03.9 - Hypothyroidism, unspecified Code(s): E03.9 - Hypothyroidism, unspecified Status: Chronic Assessment and Plan: Maintained on home levothyroxine. (3) Hyperlipidemia: Qualifiers: Hyperlipidemia type: unspecified Qualified Code(s): E78.5 - Hyperlipidemia, unspecified Code(s): E78.5 - Hyperlipidemia, unspecified Status: Chronic Assessment and Plan: Maintained on home statin therapy. (4) Coronary artery disease: Qualifiers: Associated angina: without angina Coronary Disease-Associated Artery/Lesion type: unspecified vessel or lesion type [place] vs. transplanted heart: [place] heart Qualified Code(s): I25.10 - Atherosclerotic heart disease of [place] coronary artery without angina pectoris Code(s): I25.10 - Atherosclerotic heart disease of [place] coronary artery without angina pectoris Status: Chronic Assessment and Plan: Stable, no chest pain. Continue home statin therapy. Subjective Date/time seen: 04/19/20 1315 Interval history: Ms. German is a pleasant 69yo F admitted for headache and suspected meningitis. She is feeling improved. She denies headache or neck discomfort today. She denies chest pain or shortness of breath. Difficulty chewing and eating, her new dentures don't fit well. We looked over the menu and decided on some softer options she may tolerate better. She didn't sleep well and is a bit tired but otherwise offers no complaints. Review of Systems Review of Systems: All systems reviewed & are unremarkable except as noted in HPI and below Exam Narrative: Exam Narrative: General: Female resting comfortably supine in bed in no acute distress. HEENT: Normocephalic, EOMI, oral mucosa moist, negative meningeal signs. Edentulous with some sutures from recent dental extractions. Cardiovascular: Rate and rhythm are regular. Respiratory: Lungs clear to auscultation all [place]. Respirations even and nonlabored. Abdomen: Soft, non-tender, non-distended, bowel sounds present. Extremities: Peripheral pulses intact. No edema. Neuro: No focal neurological deficits. Speech is clear. Objective Data Vital Signs Vital Signs: Last Vital Signs Temp 97.9 F 04/19/20 14:00 Pulse 77 04/19/20 14:00 Resp 18 04/19/20 14:00 BP 105/40 L 04/19/20 14:00 Pulse Ox 96 04/19/20 14:00 Intake/Output Intake/Output: Intake & Output 04/16/20 04/17/20 04/18/20 04/19/20 23:59 23:59 23:59 23:59 Intake Total 2978 0988 2490 Output Total 1600 500 Balance 2978 9373 1989 Meds/Results Medications: Active Medications Generic Name Dose Route Start Last Admin Trade Name Freq PRN Reason Stop Dose Admin Acetaminophen 650 mg 04/19/20 00:00 04/19/20 13:00 Acetaminophen 325 Mg Tablet PO 650 mg Q6H BEAN Administration Atorvastatin Calcium 40 mg 04/18/20 09:00 04/19/20 09:36 Atorvastatin 40 Mg Tablet PO 40 mg DAILY BEAN Administration Dexamethasone Sodium Phosphate 10 mg 04/17/20 18:45 04/19/20 13:00 Dexameth
[2020-04-19] MEDS: SACCHAROMYCES BOULARDII 250 MG CAPSULE PO (17:13)
[2020-04-20] VITALS (9 sets, daily range): BP systolic 106–123; BP diastolic 47–69; PULSE 55–93; RESP 16–18; TEMP 36.3–36.7; O2SAT 95–98
[2020-04-20] MEDS: SODIUM CHLORIDE 0.9% IV 1,000 ML 75 ML IV CONT (03:05)
[2020-04-20] MEDS: AMPICILLIN 2 GM/NS 100 ML 2 GM/100 ML BAG IVPB ×6 (03:06→23:31)
[2020-04-20] MEDS: ACETAMINOPHEN 325 MG TABLET 650 MG PO ×4 (05:36→23:30)
[2020-04-20] MEDS: LEVOTHYROXINE SODIUM 50 MCG TABLET PO (05:37)
[2020-04-20] MEDS: IBUPROFEN 600 MG TABLET PO ×3 (05:37→23:30)
[2020-04-20 06:45] LABS: Hematocrit 32.4 % (37.0-47.0); Hemoglobin 10.4 g/dL (12.0-15.0); Immature Granulocyte Absolute 0.05 K/mm3 (0.00-0.031); Immature Granulocyte Percent A 0.6 % (0-0.5); Lymphocytes Absolute Auto 0.89 K/mm3 (0.9-3.2); Lymphocytes Percent Auto 9.8 % (18.3-44.2); Mean Corpuscular HGB Conc 32.1 g/dl (32-36); Mean Corpuscular Hemoglobin 30.7 pg (26-34); Mean Corpuscular Volume 95.6 fl (80-100); Mean Platelet Volume 10.3 fl (7.4-10.4); Monocytes Absolute Auto 0.2 K/mm3 (0.1-0.6); Monocytes Percent Auto 2.6 % (2.6-8.5); Neutrophils Absolute Auto 7.9 K/mm3 (1.3-6.7); Platelet Count Result 221 k/mm3 (150-375); Red Blood Count 3.39 M/mm3 (4.2-5.4); Red Cell Distribution Width 13.4 % (11.5-14.5); White Blood Count 9.1 K/mm3 (4.5-10.0)
[2020-04-20 07:08] LABS: Anion Gap 6 mmol/L (8-16); Blood Urea Nitrogen 25 mg/dL (7-17); Calcium 8.6 mg/dL (8.4-10.2); Carbon Dioxide 25 mmol/L (22-30); Chloride 113 mmol/L (98-107); Estimated CRCL calculation 71 ml/min; Estimated Glomerular Filt Rate > 60; Glucose 134 mg/dL (65-105); Magnesium 2.3 mg/dL (1.6-2.3); Potassium 3.3 mmol/L (3.4-5.0); Sodium 144 mmol/L (137-145)
[2020-04-20] MEDS: POTASSIUM CHLORIDE 20 MEQ TABLET 40 MEQ PO (09:44)
[2020-04-20] MEDS: ATORVASTATIN 40 MG TABLET PO (09:45)
[2020-04-20] MEDS: SACCHAROMYCES BOULARDII 250 MG CAPSULE PO ×2 (09:45→18:47)
[2020-04-20] MEDS: SERTRALINE HCL 50 MG TABLET 100 MG PO (09:45)
--- NOTE | 2020-04-20 10:53 | PM.IMPN ---
Progress Note: A&P Assessment and Plan (1) Meningitis: Code(s): G03.9 - Meningitis, unspecified Status: Suspected Assessment and Plan: Patient presents with sudden onset headache and fever, showing clinical improvement. LP performed in ED. CSF demonstrates a pleocytosis, low glucose and elevated protein consistent with a bacterial etiology. CSF culture pending without organisms identified. Blood cultures pending with no growth to date. Appreciate Dr Valdez's recommendations. Continue IV ampicillin, vancomycin, ceftriaxone while awaiting CSF culture. Continue supportive care with Tylenol for fevers or headache. (2) Hypothyroidism: Qualifiers: Hypothyroidism type: unspecified Qualified Code(s): E03.9 - Hypothyroidism, unspecified Code(s): E03.9 - Hypothyroidism, unspecified Status: Chronic Assessment and Plan: Maintained on home levothyroxine. (3) Hyperlipidemia: Qualifiers: Hyperlipidemia type: unspecified Qualified Code(s): E78.5 - Hyperlipidemia, unspecified Code(s): E78.5 - Hyperlipidemia, unspecified Status: Chronic Assessment and Plan: Maintained on home statin therapy. (4) Coronary artery disease: Qualifiers: Coronary Disease-Associated Artery/Lesion type: unspecified vessel or lesion type [place] vs. transplanted heart: [place] heart Associated angina: without angina Qualified Code(s): I25.10 - Atherosclerotic heart disease of [place] coronary artery without angina pectoris Code(s): I25.10 - Atherosclerotic heart disease of [place] coronary artery without angina pectoris Status: Chronic Assessment and Plan: Stable, no chest pain. Continue home statin therapy. (5) Diarrhea: Qualifiers: Diarrhea type: unspecified type Qualified Code(s): R19.7 - Diarrhea, unspecified Code(s): R19.7 - Diarrhea, unspecified Status: Acute Assessment and Plan: May be GI upset related to antibiotics. Still persistent today, will obtain stool studies. Add banatrol and probiotics. (6) Hypokalemia: Code(s): E87.6 - Hypokalemia Status: Acute Assessment and Plan: May be secondary to GI loss. Monitor BMP and magnesium and supplement each as needed. Subjective Date/time seen: 04/20/20 10:15 Interval history: Ms. German is a pleasant 69yo F admitted for headache and suspected meningitis. She is feeling improved. She had no headaches yesterday or so far this morning. Her neck discomfort has also resolved. She was having soreness in her mouth from her new ill-fitting dentures and needs them adjusted. We again talked about leaving the dentures out for now and eating a softer diet. She denies nausea or vomiting. She began having watery diarrhea yesterday multiple times which she notes is a bit more formed today, nonbloody. Tolerating oral intake. She reports runny nose since this summer. Review of Systems Review of Systems: All systems reviewed & are unremarkable except as noted in HPI and below Exam Narrative: Exam Narrative: General: Female resting comfortably sitting up in bed in no acute distress. HEENT: Normocephalic, EOMI, oral mucosa moist, negative meningeal signs. Edentulous with some sutures from recent dental extractions. Cardiovascular: Rate and rhythm are regular. Respiratory: Lungs clear to auscultation all [place]. Respirations even and nonlabored. Abdomen: Soft, non-tender, non-distended, bowel sounds present. Extremities: Peripheral pulses intact. No edema. Neuro: No focal neurological deficits. Speech is clear. Objective Data Vital Signs Vital Signs: Last Vital Signs Temp 98.0 F 04/20
[2020-04-20] MEDS: FLUTICASONE PROPIONATE 0.05% NA SPR 16 GM BTL (*BKC) 2 SPRAY NASAL (15:19)
[2020-04-20 18:04] LABS: VDRL Quantitative CSF Nonreactive (Nonreactive)
[2020-04-21] VITALS (8 sets, daily range): BP systolic 126–133; BP diastolic 53–65; PULSE 58–107; RESP 16–20; TEMP 36.1–36.8; O2SAT 92–98
[2020-04-21] MEDS: AMPICILLIN 2 GM/NS 100 ML 2 GM/100 ML BAG IVPB ×6 (02:32→22:53)
[2020-04-21] MEDS: ACETAMINOPHEN 325 MG TABLET 650 MG PO ×4 (05:16→22:55)
[2020-04-21] MEDS: IBUPROFEN 600 MG TABLET PO ×3 (05:16→22:55)
[2020-04-21] MEDS: LEVOTHYROXINE SODIUM 50 MCG TABLET PO (06:02)
[2020-04-21 06:59] LABS: Anion Gap 7 mmol/L (8-16); Blood Urea Nitrogen 28 mg/dL (7-17); Calcium 8.8 mg/dL (8.4-10.2); Carbon Dioxide 26 mmol/L (22-30); Chloride 112 mmol/L (98-107); Estimated CRCL calculation 71 ml/min; Estimated Glomerular Filt Rate > 60; Glucose 120 mg/dL (65-105); Magnesium 2.3 mg/dL (1.6-2.3); Potassium 3.5 mmol/L (3.4-5.0); Sodium 145 mmol/L (137-145)
[2020-04-21 07:15] LABS: Vancomycin Trough 15.8 ug/mL (10.0-20.0)
[2020-04-21] MEDS: FLUTICASONE PROPIONATE 0.05% NA SPR 16 GM BTL (*BKC) 2 SPRAY NASAL (08:19)
[2020-04-21] MEDS: ATORVASTATIN 40 MG TABLET PO (08:19)
[2020-04-21] MEDS: SERTRALINE HCL 50 MG TABLET 100 MG PO (08:19)
[2020-04-21] MEDS: SACCHAROMYCES BOULARDII 250 MG CAPSULE PO ×2 (08:19→16:28)
--- NOTE | 2020-04-21 13:23 | P.PNIM_ITS ---
Progress Note: A&P Assessment and Plan (1) Meningitis: Code(s): G03.9 - Meningitis, unspecified Status: Suspected Assessment and Plan: * Patient presents with sudden onset headache and fever, which have now reso lved. * LP performed in ED. CSF demonstrates a pleocytosis, low glucose and elevated protein consistent with a bacterial etiology. * CSF culture pending without organisms identified. Blood cultures pending with no growth to date. * Appreciate Dr Valdez's recommendations. Continue IV ampicillin, vancomycin, ceftriaxone (day 5) while awaiting CSF culture. * Continue supportive care with Tylenol for fevers or headache. (2) Hypothyroidism: Qualifiers: Hypothyroidism type: unspecified Qualified Code(s): E03.9 - Hypothyro idism, unspecified Code(s): E03.9 - Hypothyroidism, unspecified Status: Chronic Assessment and Plan: * Maintained on home levothyroxine. (3) Hyperlipidemia: Qualifiers: Hyperlipidemia type: unspecified Qualified Code(s): E78.5 - Hyperlipidemia, unspecified Code(s): E78.5 - Hyperlipidemia, unspecified Status: Chronic Assessment and Plan: * Maintained on home statin therapy. (4) Coronary artery disease: Qualifiers: Coronary Disease-Associated Artery/Lesion type: unspecified vessel or l esion type [place] vs. transplanted heart: [place] heart Associated angina: without angina Qualified Code(s): I25.10 - Atherosclerotic heart disease of [place] coronary artery without angina pectoris Code(s): I25.10 - Atherosclerotic heart disease of [place] coronary artery without angina pectoris Status: Chronic Assessment and Plan: * Stable, no chest pain. Continue home statin therapy. (5) Diarrhea: Qualifiers: Diarrhea type: unspecified type Qualified Code(s): R19.7 - Diarrhea, unspecified Code(s): R19.7 - Diarrhea, unspecified Status: Acute Assessment and Plan: * May be GI upset related to antibiotics. C diff negative. Continue banatrol and probiotics. (6) Hypokalemia: Code(s): E87.6 - Hypokalemia Status: Acute Assessment and Plan: * May be secondary to GI loss. K+ 3.5 today. Mg stable at 2.3. Monitor BMP and magnesium and supplement each as needed. Subjective Date/time seen: 04/21/20 1200 Interval history: Ms. German is a pleasant 69yo F admitted for suspected meni ngitis. She is feeling improved. Her headaches and neck discomfort have resolved. She recently had all teeth extracted and got dentures but they need adjusted because she is having trouble with pain having the dentures in while eating. We discussed leaving the dentures out for now and eating a softer diet. She denies chest pain or shortness of breath. Diarrhea improving. Review of Systems Review of Systems: All systems reviewed & are unremarkable except as noted in HPI and below Exam Narrative: Exam Narrative: General: Female resting comfortably sitting up in bed in no acute distress. HEENT: Normocephalic, EOMI, oral mucosa moist, negative meningeal signs. Edent ulous with some sutures from recent dental extractions. Cardiovascular: Rate and rhythm are regular. Respiratory: Lungs clear to auscultation all [place]. Respirations even and nonlabored.
--- NOTE | 2020-04-21 13:23 | PM.IMPN ---
Progress Note: A&P Assessment and Plan (1) Meningitis: Code(s): G03.9 - Meningitis, unspecified Status: Suspected Assessment and Plan: Patient presents with sudden onset headache and fever, which have now resolved. LP performed in ED. CSF demonstrates a pleocytosis, low glucose and elevated protein consistent with a bacterial etiology. CSF culture pending without organisms identified. Blood cultures pending with no growth to date. Appreciate Dr Valdez's recommendations. Continue IV ampicillin, vancomycin, ceftriaxone (day 5) while awaiting CSF culture. Continue supportive care with Tylenol for fevers or headache. (2) Hypothyroidism: Qualifiers: Hypothyroidism type: unspecified Qualified Code(s): E03.9 - Hypothyroidism, unspecified Code(s): E03.9 - Hypothyroidism, unspecified Status: Chronic Assessment and Plan: Maintained on home levothyroxine. (3) Hyperlipidemia: Qualifiers: Hyperlipidemia type: unspecified Qualified Code(s): E78.5 - Hyperlipidemia, unspecified Code(s): E78.5 - Hyperlipidemia, unspecified Status: Chronic Assessment and Plan: Maintained on home statin therapy. (4) Coronary artery disease: Qualifiers: Coronary Disease-Associated Artery/Lesion type: unspecified vessel or lesion type [place] vs. transplanted heart: [place] heart Associated angina: without angina Qualified Code(s): I25.10 - Atherosclerotic heart disease of [place] coronary artery without angina pectoris Code(s): I25.10 - Atherosclerotic heart disease of [place] coronary artery without angina pectoris Status: Chronic Assessment and Plan: Stable, no chest pain. Continue home statin therapy. (5) Diarrhea: Qualifiers: Diarrhea type: unspecified type Qualified Code(s): R19.7 - Diarrhea, unspecified Code(s): R19.7 - Diarrhea, unspecified Status: Acute Assessment and Plan: May be GI upset related to antibiotics. C diff negative. Continue banatrol and probiotics. (6) Hypokalemia: Code(s): E87.6 - Hypokalemia Status: Acute Assessment and Plan: May be secondary to GI loss. K+ 3.5 today. Mg stable at 2.3. Monitor BMP and magnesium and supplement each as needed. Subjective Date/time seen: 04/21/20 1200 Interval history: Ms. German is a pleasant 69yo F admitted for suspected meningitis. She is feeling improved. Her headaches and neck discomfort have resolved. She recently had all teeth extracted and got dentures but they need adjusted because she is having trouble with pain having the dentures in while eating. We discussed leaving the dentures out for now and eating a softer diet. She denies chest pain or shortness of breath. Diarrhea improving. Review of Systems Review of Systems: All systems reviewed & are unremarkable except as noted in HPI and below Exam Narrative: Exam Narrative: General: Female resting comfortably sitting up in bed in no acute distress. HEENT: Normocephalic, EOMI, oral mucosa moist, negative meningeal signs. Edentulous with some sutures from recent dental extractions. Cardiovascular: Rate and rhythm are regular. Respiratory: Lungs clear to auscultation all [place]. Respirations even and nonlabored. Abdomen: Soft, non-tender, non-distended, bowel sounds present. Extremities: Peripheral pulses intact. No edema. Neuro: No focal neurological deficits. Speech is clear. Objective Data Vital Signs Vital Signs: Last Vital Signs Temp 97.0 F L 04/21/20 05:59 Pulse 77 04/21/20 08:00 Resp 18 11/06/20 05:59 BP 133/59 L 11/06/20 05:59 Pulse Ox 98 04/21/20 05:59 Intake/Output Intake
--- NOTE | 2020-04-21 16:30 | WPDINFPN2 ---
Progress Note: A&P Assessment and Plan (1) Meningitis: Code(s): G03.9 - Meningitis, unspecified Status: Suspected Assessment and Plan: 1. Acute YANEZ, suspect viral Meningitis (although CSF formula is consistent with bacterial cause). HSV 1-2 are NR Other forms of aseptic meningitis are not suspected. 2. Remote past H zoster REC Vanc and Ctx and Amp, continue until AM. If final CSF culture is negative, then stop all antimicrobials and ok discharge. Subjective Date/time seen: 04/21/20 16:30 Interval history: no headache syncope dizziness nausea subjective fever chills Exam Narrative: Exam Narrative: afebrile Const: General: no acute distress Eyes: General: appearance normal, both eyes and all related structures Resp: Effort & Inspection: normal respiratory effort Auscultation: clear to auscultation bilaterally Cardio: Rate: regular rate Rhythm: regular rhythm Heart sounds: no gallops and no murmurs GI: Inspection: non-distended GI Palp: Yes Soft to palpation and No Tenderness to palpation present (GI) Objective Data Vital Signs Vital Signs: Vital Signs - 24 hr 04/20/20 20:00 04/20/20 21:55 04/21/20 00:00 Temperature 36.4 C Pulse Rate 63 56 L 58 L Respiratory Rate 18 Blood Pressure 106/54 L Pulse Oximetry 98 04/21/20 04:00 04/21/20 05:59 04/21/20 08:00 Temperature 36.1 C L Pulse Rate 66 62 77 Respiratory Rate 18 Blood Pressure 133/59 L Pulse Oximetry 98 04/21/20 12:00 04/21/20 14:00 Temperature 36.4 C Pulse Rate 72 69 Respiratory Rate 18 Blood Pressure 127/56 L Pulse Oximetry 97 Intake/Output Intake/Output: Intake & Output 04/18/20 04/19/20 04/20/20 04/21/20 23:59 23:59 23:59 23:59 Intake Total 7836 4672 3890 2049 Output Total 1600 900 300 Balance 3544 7873 0360 2049 Meds/Results Medications: Active Medications Generic Name Dose Route Start Last Admin Trade Name Freq PRN Reason Stop Dose Admin Acetaminophen 650 mg 04/19/20 00:00 04/21/20 11:12 Acetaminophen 325 Mg Tablet PO 650 mg Q6H BEAN Administration Atorvastatin Calcium 40 mg 04/18/20 09:00 04/21/20 08:19 Atorvastatin 40 Mg Tablet PO 40 mg DAILY BEAN Administration Chlorhexidine Gluconate 15 ml 04/21/20 17:00 Chlorhexidine Gluconate 0.12% Oral Rinse 473 Ml Btl (*Bkc) SWISH/SPIT BID BEAN Dexamethasone Sodium Phosphate 10 mg 04/17/20 18:45 04/21/20 12:37 Dexamethasone Sod Phos Inj 10 Mg/Ml 1 Ml Vial IV PUSH 10 mg Q6H BEAN Administration Fluticasone Propionate 2 spray 04/20/20 11:20 04/21/20 08:19 Fluticasone Propionate 0.05% Na Spr 16 Gm Btl (*Bkc) NASAL 2 spray QAM BEAN Administration Ampicillin Sodium 2 gm in 100 mls @ 200 mls/hr 04/17/20 19:00 04/21/20 14:55 Ampicillin 2 Gm/Ns 100 Ml IVPB Infused Q4H BEAN Infusion Ceftriaxone Sodium 2 gm in 100 mls @ 200 mls/hr 04/18/20 04:30 04/21/20 05:46 Rocephin 2 Gm/D5w 100 Ml IVPB Infused Q12H BEAN Infusion Vancomycin HCl 1,250 mg in 250 mls @ 200 mls/hr 04/19/20 07:00 04/21/20 08:57 Vancomycin 1,250 Mg/D5w 250 Ml IVPB Infused Q12H BEAN Infusion Ibuprofen 600 mg 04/18/20 22:00 04/21/20 14:25 Ibuprofen 600 Mg Tablet PO 600 mg Q8HR BEAN Administration Levothyroxine Sodium 50 mcg 04/18/20 06:30 04/21/20 06:02 Levothyroxine Sodium 50 Mcg Tablet PO 50 mcg 0630 BEAN Administration Saccharomyces Boulardii 250 mg 04/19/20 17:00 04/21/20 08:19 Saccharomyces Boulardii 250 Mg Capsule PO 250 mg BID BEAN Administration Sertraline HCl 100 mg 04/18/20 09:00 04/21/20 08:19 Sertraline Hcl 50 Mg Tablet PO 100 mg DAILY BEAN Administration Radiology Results: ITS Impressions Head CT 04/17/20 13:06 IMPRESSION: 1. No acute intracranial abnormality. 2. Age related findings. Chest X-Ray 04/17/20 15:49 IMPRESSION: 1. Chronic blunting of left lateral costophrenic angle, which may be a prominent fat pad or small ple
[2020-04-21] MEDS: CHLORHEXIDINE GLUCONATE 0.12% ORAL RINSE 473 ML BTL (*BKC) 15 ML SWISH/SPIT (18:11)
[2020-04-22] MEDS: AMPICILLIN 2 GM/NS 100 ML 2 GM/100 ML BAG IVPB ×2 (03:30→06:12)
[2020-04-22 03:56] VITALS: BP 140/64; PULSE 68; RESP 20; TEMP 36.4; O2SAT 96
[2020-04-22] MEDS: IBUPROFEN 600 MG TABLET PO (05:07)
[2020-04-22] MEDS: ACETAMINOPHEN 325 MG TABLET 650 MG PO (05:07)
[2020-04-22] MEDS: LEVOTHYROXINE SODIUM 50 MCG TABLET PO (06:11)
[2020-04-22 07:15] LABS: Hematocrit 30.6 % (37.0-47.0); Hemoglobin 9.8 g/dL (12.0-15.0); Immature Granulocyte Absolute 0.03 K/mm3 (0.00-0.031); Immature Granulocyte Percent A 0.7 % (0-0.5); Lymphocytes Absolute Auto 0.63 K/mm3 (0.9-3.2); Lymphocytes Percent Auto 14.6 % (18.3-44.2); Mean Corpuscular Hemoglobin 30.7 pg (26-34); Mean Corpuscular Volume 95.9 fl (80-100); Mean Platelet Volume 10.8 fl (7.4-10.4); Monocytes Absolute Auto 0.2 K/mm3 (0.1-0.6); Monocytes Percent Auto 5.6 % (2.6-8.5); Neutrophils Absolute Auto 3.4 K/mm3 (1.3-6.7); Neutrophils Percent Auto 79.1 % (45.5-73.1); Platelet Count Result 176 k/mm3 (150-375); Red Blood Count 3.19 M/mm3 (4.2-5.4); Red Cell Distribution Width 13.2 % (11.5-14.5); White Blood Count 4.3 K/mm3 (4.5-10.0)
[2020-04-22 07:21] LABS: Alanine Aminotransferase 31 U/L (4-35); Albumin Level 2.9 g/dL (3.5-5.1); Alkaline Phosphatase 43 U/L (38-126); Anion Gap 5 mmol/L (8-16); Aspartate Amino Transferase 22 U/L (14-36); Bilirubin,Total 0.2 mg/dL (0.2-1.3); Blood Urea Nitrogen 23 mg/dL (7-17); Calcium 8.5 mg/dL (8.4-10.2); Carbon Dioxide 25 mmol/L (22-30); Chloride 110 mmol/L (98-107); Estimated CRCL calculation 83 ml/min; Estimated Glomerular Filt Rate > 60; Glucose 124 mg/dL (65-105); Magnesium 2.2 mg/dL (1.6-2.3); Potassium 3.5 mmol/L (3.4-5.0); Sodium 140 mmol/L (137-145)
[2020-04-22] MEDS: ATORVASTATIN 40 MG TABLET PO (08:32)
[2020-04-22] MEDS: FLUTICASONE PROPIONATE 0.05% NA SPR 16 GM BTL (*BKC) 2 SPRAY NASAL (08:33)
[2020-04-22] MEDS: CHLORHEXIDINE GLUCONATE 0.12% ORAL RINSE 473 ML BTL (*BKC) 15 ML SWISH/SPIT (08:33)
[2020-04-22] MEDS: SERTRALINE HCL 50 MG TABLET 100 MG PO (08:34)
[2020-04-22] MEDS: SACCHAROMYCES BOULARDII 250 MG CAPSULE PO (08:34)
--- NOTE | 2020-04-22 12:05 | PM.DS ---
DS: Admitting Diagnosis Admitting Diagnosis Admitting Diagnosis: Meningitis DS: Discharge Diagnosis Discharge Diagnosis (1) Meningitis: Code(s): G03.9 - Meningitis, unspecified Status: Suspected Assessment and Plan: Patient presented with sudden onset headache and fever. LP performed in ED. CSF demonstrated a pleocytosis, low glucose and elevated protein consistent with a bacterial etiology. She was started on IV ampicillin, vancomycin, and ceftriaxone and completed 5 days. She received 2 doses of acyclovir upon presentation but was discontinued following results of CSF fluid. CSF culture was negative for growth of organisms. Preliminary blood cultures from 04/17 showed NGTD and final cultures will be monitored. She was seen in consultation by Dr. Valdez (ID) who recommended cessation of antibiotics upon negative CSF culture on 04/22. She received IV dexamethasone. Ultimately, this was felt to be likely viral in origin despite CSF findings consistent with bacterial etiology. She has a remote history of Herpes Zoster virus. HSV 1 and 2 non-reactive. Her headache and fever resolved. (2) Hypothyroidism: Qualifiers: Hypothyroidism type: unspecified Qualified Code(s): E03.9 - Hypothyroidism, unspecified Code(s): E03.9 - Hypothyroidism, unspecified Status: Chronic Assessment and Plan: TSH was mildly low. T4 was wnl. T3 mildly low. Continue home dose levothyroxine. Repeat reflex TSH in 4-6 weeks. (3) Hyperlipidemia: Qualifiers: Hyperlipidemia type: unspecified Qualified Code(s): E78.5 - Hyperlipidemia, unspecified Code(s): E78.5 - Hyperlipidemia, unspecified Status: Chronic Assessment and Plan: Maintained on home statin therapy. Continue atorvastatin. (4) Coronary artery disease: Qualifiers: Associated angina: without angina Coronary Disease-Associated Artery/Lesion type: unspecified vessel or lesion type [place] vs. transplanted heart: [place] heart Qualified Code(s): I25.10 - Atherosclerotic heart disease of [place] coronary artery without angina pectoris Code(s): I25.10 - Atherosclerotic heart disease of [place] coronary artery without angina pectoris Status: Chronic Assessment and Plan: Remained stable with no chest pain. Continue home statin therapy. (5) Diarrhea: Qualifiers: Diarrhea type: unspecified type Qualified Code(s): R19.7 - Diarrhea, unspecified Code(s): R19.7 - Diarrhea, unspecified Status: Acute Assessment and Plan: [place] to be GI upset related to antibiotic therapy. C diff negative. Improved with banatrol and probiotics. Continue probiotic at home. (6) Hypokalemia: Code(s): E87.6 - Hypokalemia Status: Acute Assessment and Plan: Secondary to GI loss. Potassium was monitored closely and replaced as needed. Magnesium stable. Potassium 3.5 at time of discharge. DS: Summary Hospital Course Reason for hospitalization: Meningitis Hospital Course: Date of admission: 04/17/2020 Date of discharge: 04/22/2020 Tamie German is a 69 year old female with a history of CAD, HLD, hypothyroidism, and remote history of herpes zoster virus who presented to the emergency department on 04/17/20 with complaints of bilateral frontal and occipital headache of sudden onset which she described as sharp and rated as 10/10. She reported it was the worst headache she ever had and was not relieved by tylenol or ibuprofen. She complained of associated fever, nausea, and vomiting. At presentation, VSS, afebrile, WBC 12.3, additional CBC and electrolytes wnl, glucose 117, CSF collected with cloudy fluid, pleocytosis, elevated neutrophils, low glucose, and elevated protein, and head CT with no acute findings. She was admitted to the hospitalist service for further evaluation and management and was seen in consultation by infectious disease. Please see above for further d
== END 2020-04-22 13:06 | disposition home or self-care (01) | DRG 75 ==
LOC: ANHED 16:52 → ANH3MEDSUR 19:03
PROVIDERS: Emergency Medicine; Physician Assistant; Admitting Provider Internal Medicine; Emergency Provider Emergency Medicine; PCP Internal Medicine; Visit Provider Physician Assistant
DX: A87.9 Viral meningitis, unspecified (principal); K52.1 Toxic gastroenteritis and colitis; E03.9 Hypothyroidism, unspecified; Z23 Encounter for immunization; Z20.828 Contact with and (suspected) exposure to other viral communicable diseases; T36.8X5A Adverse effect of other systemic antibiotics, initial encounter; E87.6 Hypokalemia; R09.02 Hypoxemia; E78.5 Hyperlipidemia, unspecified; I25.10 Atherosclerotic heart disease of native coronary artery without angina pectoris; D64.9 Anemia, unspecified; K21.9 Gastro-esophageal reflux disease without esophagitis; F41.9 Anxiety disorder, unspecified; Z86.718 Personal history of other venous thrombosis and embolism; Z95.5 Presence of coronary angioplasty implant and graft; Z87.891 Personal history of nicotine dependence; K46.9 Unspecified abdominal hernia without obstruction or gangrene; B00.9 Herpesviral infection, unspecified; R73.9 Hyperglycemia, unspecified; T38.0X5A Adverse effect of glucocorticoids and synthetic analogues, initial encounter; Z98.42 Cataract extraction status, left eye; Z98.41 Cataract extraction status, right eye; Z90.710 Acquired absence of both cervix and uterus
CPT/HCPCS: 36415; 51701; 62270; 70450; 71045; 80048; 80053; 80202; 81001; 82945; 82948; 83036; 83605; 83690; 83735; 84157; 84439; 84443; 84480; 85025; 85652; 86140; 86592; 87015; 87040; 87045; 87046; 87070; 87269; 87272; 87324; 87427; 87529; 87635; 88108; 89051; 89055; 90471; 90653; 93005; 96361; 96374; 96375; 96376; 99285; A4248; A9270; C9803; G0008; J0133; J0290; J0696; J1100; J2060; J2270; J2405; J3010; J3370; J7030; J7060; U0003

== ENCOUNTER 2020-09-29 14:39 | Outpatient (CLI) | payer MEDICARE, OTHER, SELFPAY ==
--- NOTE | ~2020-09-29 | CT_ITS ---
EXAMINATION: CT sinus wo con DATE: 09/29/2020 15:30 INDICATION: Fluid draining left side of nose for one year. Cerebrospinal fluid leak. TECHNIQUE: Computed tomography (CT) of the paranasal sinuses was performed without contrast. Iterativ e reconstruction technique was employed. Exam dose: 271.75 mGy-cm total exam DLP. COMPARISON: 04/17/2020 CT brain FINDINGS: There is leftward bowing of the nasal septum. The nasal turbinates are prominent in size, right greater than left. There are bilateral nasal antral windows. The ostiomeatal units are patent. Persistent metopic suture with minimally developed right frontal sinus. The left frontal sinus is jeremy ar. A partially opacified ethmoid air cell is noted on each side. The ethmoid air cells are otherwise unr emarkable. Minimal mucoperiosteal thickening of the maxillary sinuses. The sphenoid sinuses are clear. There is opacification of a minority of the mastoid air cells bilaterally. There is soft tissue thick ening within the left and to a lesser extent right middle ear consistent with otitis media. The internal auditory canals are symmetric. Osteoarthritic spurring of both temporomandibular joints. IMPRESSION: Leftward bowing of nasal septum Prominent nasal turbinates, right greater than left Bilateral nasal antral windows Minimal mucoperiosteal thickening of the maxillary sinuses and minimal bilateral ethmoid air cell opa cification Mild bilateral mastoid effusions Reviewed, dictated and finalized at [facility]. Reviewed, dictated and finalized at location A. IMPRESSION: Leftward bowing of nasal septum Prominent nasal turbinates, right greater than left Bilateral nasal antral windows Minimal mucoperiosteal thickening of the maxillary sinuses and minimal bilatera l ethmoid air cell opacification Mild bilateral mastoid effusions
== END 2020-09-29 14:40 | disposition home or self-care (01) ==
PROVIDERS: PCP Internal Medicine; Visit Provider Otolaryngology
DX: G96.00 Cerebrospinal fluid leak, unspecified (principal); J34.2 Deviated nasal septum; J34.3 Hypertrophy of nasal turbinates; Q30.3 Congenital perforated nasal septum; J32.0 Chronic maxillary sinusitis
CPT/HCPCS: 70486

== ENCOUNTER 2021-01-01 08:45 | Outpatient (CLI) | payer MEDICARE, OTHER, SELFPAY ==
--- NOTE | ~2021-01-01 | MM_ITS ---
EXAMINATION: MM screening pam BI w taran HISTORY: Screening TECHNIQUE: Craniocaudal and mediolateral oblique 3-D tomosynthesis images were obtained and synthetic 2-D images were generated. CAD analysis was submitted and interpreted. COMPARISON: 05/05/2019 BREAST PARENCHYMAL COMPOSITION: There are scattered areas of fibroglandular density. FINDINGS: There is no evidence of suspicious mass, calcification, or architectural distortion to sugg est malignancy in either breast. There has been no suspicious interval change. IMPRESSION: 1. No mammographic evidence of malignancy. 2. Recommend routine screening mammography in one year. BI-RADS Category 1: Negative Reviewed, dictated and finalized at location A.
== END 2021-01-01 08:46 | disposition home or self-care (01) ==
LOC: ANHIMG 08:47
PROVIDERS: PCP Internal Medicine; Visit Provider Internal Medicine
DX: Z12.31 Encounter for screening mammogram for malignant neoplasm of breast (principal)
CPT/HCPCS: 77063; 77067

== ENCOUNTER 2021-04-23 10:57 | Emergency (ER) | payer MEDICARE, OTHER, SELFPAY ==
--- NOTE | ~2021-04-23 | XR_ITS ---
XR hand RT min 3V 04/23/2021 12:02 INDICATION: Right hand pain after fall PROCEDURE: 3 views right hand COMPARISON: No prior studies for comparison. FINDINGS: Fracture, dislocation or subluxation is not identified. There is mild osteoarthritis of the second interphalangeal joints. The soft tissues appear within normal limits. No foreign bodies are identified. IMPRESSION: 1: NO ACUTE BONE OR JOINT ABNORMALITY IDENTIFIED. Reviewed, dictated and finalized at location A. OGLYCERIN NEUTRALIZER
--- NOTE | ~2021-04-23 | CT_ITS ---
EXAMINATION: CT cervical spine wo con DATE: 04/23/2021 11:56 INDICATION: Status post fall. Neck pain. TECHNIQUE: Computed tomography (CT) of the cervical spine was performed without intravenous contrast. The dose-length product was 436 mGy-cm. Automated exposure control and iterative reconstruction tech nique were employed. COMPARISON: None FINDINGS: There is a left mastoid effusion. Vertebral body heights are maintained. There is mild dege nerative disc disease at C5-6 and C6-7. There is degenerative anterolisthesis at C7-T1. No acute frac ture, subluxation or dislocation. Craniovertebral junction within normal limits. Odontoid process wit hin normal limits. Lung apices are unremarkable. No significant paraspinal soft tissue abnormality. IMPRESSION: 1. No acute abnormality of the cervical spine. 2: Mild cervical spondylosis. Reviewed, dictated and finalized at location A. EAD MOLD OPERATOR
--- NOTE | ~2021-04-23 | CT_ITS ---
EXAMINATION: CT brain wo con DATE: 04/23/2021 11:56 INDICATION: Head injury. Fall. TECHNIQUE: Computed tomography (CT) of the head was performed without intravenous contrast. The mA wa s adjusted according to patient size. Iterative reconstruction technique was employed. The dose-lengt h product was 605.33 mGy-cm. COMPARISON: Head CT 04/17/2020 FINDINGS: There is no intracranial hemorrhage, acute infarction, or abnormal intracranial mass lesion . The ventricles are normal in size. There is a right frontal lateral scalp hematoma. There is mild m ucosal thickening in the ethmoid sinuses. There are likely changes of ocular lens replacement surgeri es. There is a left otomastoid effusion. IMPRESSION: 1. Normal brain. 2. Left otomastoid effusion. Reviewed, dictated and finalized at location A. NE INSTALLER
[2021-04-23 11:03] VITALS: BP 141/85; PULSE 88; RESP 18; TEMP 36.9; O2SAT 99
--- NOTE | 2021-04-23 11:05 | ED.HEATRA ---
HPI - Head Injury General Chief complaint: Head Injury Stated complaint: Fall Time Seen by Provider: 04/23/21 11:02 Source: patient Mode of arrival: ambulatory Limitations: no limitations History of Present Illness HPI Narrative: Patient is a 70-year-old female with a history of hypertension, hyperlipidemia, hypothyroidism, presenting for evaluation following a ground-level fall. Patient reportedly was going to the grocery store when she inadvertently stepped into a pothole, causing her to lose her balance and fall onto her right side. Patient did hit her head on the ground, denies loss of consciousness. Patient was able to stand up, ambulate back to her car and drive herself to her primary care physician's office, who after looking at the bruise on her head, advised her to come to the ER for evaluation. He insisted on calling an ambulance for her, and the patient was brought to the emergency department for evaluation. Patient takes a daily aspirin. Denies any anticoagulation. She denies vision changes, nausea or vomiting. No focal weakness or numbness. She reports bruising of the right hand but no significant hand or wrist pain. She is right-hand dominant she denies any lacerations, no bleeding, but does have a large bruise to the right side of her head. The patient denies any prodromal symptoms such as chest pain, lightheadedness or dizziness prior to the fall. Related Data Home Medications Medication Instructions Recorded Confirmed atorvastatin 40 mg PO DAILY 10/28/19 04/17/20 levothyroxine 50 mcg PO DAILY 10/28/19 04/17/20 sertraline 100 mg PO DAILY 10/28/19 04/17/20 nitroglycerin 0.4 mg SUBLINGUAL Q5-15M PRN 04/17/20 04/17/20 Allergies Allergy/AdvReac Type Severity Reaction Status Date / Time rosuvastatin Allergy Unknown Anxiety Verified 04/23/21 11:06 Review of Systems Review of Systems: CONSTITUTIONAL: Denies fever, chills, or sweats. EYES: Denies visual changes, redness, or discharge. ENT: Denies rhinorrhea, congestion, sore throat, or otalgia. CARDIOVASCULAR: Denies chest pain, palpitations, or edema. RESPIRATORY: Denies cough or dyspnea. GASTROINTESTINAL: Denies abdominal pain, nausea, vomiting, or diarrhea. GENITOURINARY: Denies dysuria or hematuria. SKIN: Denies rash or itching. Reports bruising to right side of her head, right hand. MUSCULOSKELETAL: Denies back pain, joint pain, or myalgia. NEUROLOGIC: Denies significant headache, denies focal numbness or weakness. [facility] Past Medical History Medical History Anemia With history of blood transfusion. Anxiety Coronary artery disease Deep vein thrombosis of right lower extremity Gastroesophageal reflux disease Hiatal hernia Hyperlipidemia Hypothyroidism Kidney stones Shingles Surgical History Surgical History History of bilateral cataract extraction History of coronary artery stent placement (~2008) x1. History of hysterectomy for benign disease Family History Family History Mother Diabetes mellitus Family history of cardiovascular disease Sibling Diabetes mellitus Family history of cardiovascular disease Social History Social History Social History: Surrogate decision maker: Ac German, spouse. Code status: Full code. Smoking packs per day: 2 Smoking cigarettes per day: 40.0 Years smoked: 40 Smoking pack-years: 80.00 Smoking status: Former smoker Tobacco type: cigarettes Alcohol intake: former Substance use: never Additional living arrangements comments: Resides with her in [place]. 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 Gender identity (if verbalized by the patient): Female Spiritual care concerns: No Exam Narrative: Nursing note and vitals
[2021-04-23 12:27] VITALS: BP 138/68; PULSE 78; RESP 18; O2SAT 99
== END 2021-04-23 12:31 | disposition home or self-care (01) ==
PROVIDERS: Emergency Provider Emergency Medicine; PCP Internal Medicine
DX: S00.03XA Contusion of scalp, initial encounter (principal); I10 Essential (primary) hypertension; E03.9 Hypothyroidism, unspecified; E78.5 Hyperlipidemia, unspecified; Z87.891 Personal history of nicotine dependence; W17.2XXA Fall into hole, initial encounter; Y92.512 Supermarket, store or market as the place of occurrence of the external cause
CPT/HCPCS: 70450; 72125; 73130; 99284

== ENCOUNTER 2022-11-13 10:14 | Outpatient (CLI) | payer MEDICARE, OTHER, SELFPAY ==
--- NOTE | ~2022-11-13 | US_ITS ---
EXAMINATION: US thyroid DATE: 11/13/2022 11:45 INDICATION: Nontoxic multinodular goiter. TECHNIQUE: Multiple ultrasound images of the thyroid were obtained. COMPARISON: Ultrasound 10/28/2019, 03/31/18 FINDINGS: The right thyroid lobe measures 4.9 x 1.6 x 1.4 cm. The left thyroid lobe measures 5.0 x 1.5 x 1.5 c m. In the right thyroid lobe, there is a 7 mm mixed cystic and solid, isoechoic, taller than wide no dule with smooth margin without echogenic foci (TI-RADS TR4). In the right thyroid lobe, there is a 6 mm predominantly solid, hypoechoic, wider than tall nodule with smooth margin without echogenic foci (TR4). In the left thyroid lobe, there is a 6 mm solid, very hypoechoic, wider than tall nodule with smooth margin without echogenic foci (TR4). There are multiple subcentimeter nodules in the thyroid. Biopsy of two nodules on 04/22/2018 was benign. IMPRESSION: 1. Small thyroid nodules, likely not clinically significant. No follow-up is needed. Reviewed, dictated and finalized at location A. IMPRESSION: 1. Small thyroid nodules, likely not clinically significant. No follow-up is ne eded.
== END 2022-11-13 10:15 | disposition home or self-care (01) ==
PROVIDERS: PCP Internal Medicine; Visit Provider Otolaryngology
DX: E04.2 Nontoxic multinodular goiter (principal)
CPT/HCPCS: 76536

== ENCOUNTER 2022-12-11 09:02 | Outpatient (CLI) | payer MEDICARE, OTHER, SELFPAY ==
--- NOTE | ~2022-12-11 | DEXA_ITS ---
Bone Density Report Name: TERESA BRAR Age: 72 Sex: Female Ethnicity: White Date of : 1950 Indication: postmenopausal; screening for osteoporosis; height loss; hysterectomy; Referring Provider: ARCHIE, ALYSA Waterman Study: Bone densitometry was performed. Exam Date: December 11, 2022 Accession number: [id number] Bone Density: Region BMD T-score Z-score Classification AP Spine(L1-L4) 0.981 -0.6 1.8 Normal Femoral Neck (Left) 0.592 -2.3 -0.3 Osteopenia Total Hip (Left) 0.805 -1.1 0.6 Osteopenia Femoral Neck (Right) 0.629 -2.0 0.1 Osteopenia Total Hip (Right) 0.780 -1.3 0.4 Osteopenia Total Hip Mean 0.792 -1.2 0.5 Osteopenia World Health Organization criteria for BMD impression classify patients as: Normal (T-score at or above -1.0), Osteopenia (T-score between -1.0 and -2.5), or Osteoporosis (T-score at or below -2.5). 10-year Fracture Risk(1): Major Osteoporotic Fracture 14% Hip Fracture 3.8% Reported Risk Factors: [place] (), Neck BMD=0.592, BMI=28.4 (1) FRAX(R) Version 3.08. Fracture probability calculated for an untreated patient. Fracture probability may be lower if the patient has received treatment. Previous Exams: Region Exam Age BMD T-score BMD Change BMD Change Date g/cm2 vs Baseline vs Previous AP Spine (L1-L4) 12/11/2022 72 0.981 -0.6 0.016 (1.7%) 0.016 (1.7%) 05/05/2019 68 0.965 -0.7 Total Hip(Left) 12/11/2022 72 0.805 -1.1 -0.060 (-6.9%) -0.060 (-6.9%) 05/05/2019 68 0.865 -0.6 Total Hip(Right) 12/11/2022 72 0.780 -1.3 -0.071 (-8.3%) -0.071 (-8.3%) 05/05/2019 68 0.851 -0.7 *Denotes significance at 95% confidence level, LSC for AP Spine = 0.022 g/cm2, LSC for Total Hip = 0.027 g/cm2 Clinical Information Provided by Patient: Has used the following medications: Vitamin D, Calcium Has the following medical conditions: Hysterectomy Patient maximum height was 64 Menopause Age: 49 Drinks caffeinated beverages Onset of menses at age 10 Number of children 3 Impression: The patient has low bone mass, based on the Left Femoral Neck T-score. The patient has an estimated ten-year risk of hip fracture of 3.8% and an estimated ten-year risk of major fracture of 14%, based on the WHO FRAX algorithm. The BMD for the Total Hip(Left) decreased, changing by -6.9% since the last DXA exam. The BMD for the Total Hip(Right) decreased, changing by -8.3% since the last DXA exam. D
--- NOTE | ~2022-12-11 | MM_ITS ---
EXAMINATION: MM screening pam BI w taran HISTORY: Screening mammogram TECHNIQUE: Craniocaudal and mediolateral oblique 3-D tomosynthesis images were obtained and synthetic 2-D images were generated. CAD analysis was submitted and interpreted. COMPARISON: 01/01/2021, 05/05/2019 bilateral screening mammogram examinations BREAST PARENCHYMAL COMPOSITION: There are scattered areas of fibroglandular density. FINDINGS: There is no evidence of suspicious mass, calcification, or architectural distortion to sugg est malignancy in either breast. There has been no suspicious interval change. IMPRESSION: 1. No mammographic evidence of malignancy. 2. Recommend routine screening mammography in one year. BI-RADS Category 1: Negative Reviewed, dictated and finalized at location A.
== END 2022-12-11 09:03 | disposition home or self-care (01) ==
LOC: ANHIMG 09:04
PROVIDERS: PCP Internal Medicine; Visit Provider Internal Medicine
DX: Z12.31 Encounter for screening mammogram for malignant neoplasm of breast (principal); Z78.0 Asymptomatic menopausal state; M85.89 Other specified disorders of bone density and structure, multiple sites
CPT/HCPCS: 77063; 77067; 77080

== ENCOUNTER 2023-05-07 09:17 | Outpatient (CLI) | payer MEDICARE, OTHER, SELFPAY ==
--- NOTE | ~2023-05-07 | XR_ITS ---
EXAMINATION: XR lumbar spine 2-3V DATE: 05/07/2023 09:37 INDICATION: Low back pain TECHNIQUE: Anteroposterior and lateral views of the lumbar spine, and cone-down lateral view of the l umbosacral junction were obtained. COMPARISON: None. FINDINGS: There are 2 mm of anterolisthesis of L4 on L5. Bone alignment is otherwise normal. There is no fracture. There is moderate loss of intervertebral disc space height at L5-S1. The vertebral body heights are maintained. Small degenerative osteophytes project from the anterior endplates of multip le vertebral bodies. There is moderate facet joint osteoarthritis of the lower lumbar spine. IMPRESSION: 1. Mild lumbar spondylosis without acute findings. Reviewed, dictated and finalized at location F. UNITY CASE MANAGER
== END 2023-05-07 09:18 | disposition home or self-care (01) ==
PROVIDERS: PCP Internal Medicine; Visit Provider Internal Medicine
DX: M47.896 Other spondylosis, lumbar region (principal)
CPT/HCPCS: 72100

== ENCOUNTER 2024-10-15 11:03 | Outpatient (CLI) | payer MEDICARE, OTHER, SELFPAY ==
--- NOTE | ~2024-10-15 | XR_ITS ---
EXAMINATION: XR chest 2V 10/15/2024 11:21 INDICATION: Bronchitis PROCEDURE: 2 view chest COMPARISON: 04/17/2020 FINDINGS: The lungs are clear. The cardiomediastinal silhouette is within normal limits. There are no pleural effusions. There is no pneumothorax suspected. IMPRESSION: 1: NO ACUTE CARDIOPULMONARY DISEASE. Reviewed, dictated and finalized at location A.
--- OUTSIDE RECORDS SUMMARY | 2024-10-16 12:31 | XMS_ITS | Referral Summary ---
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 Role Phone Americo Tomlin MD Primary Care Provider [phone] Allergies Active Allergy Reactions Criticality Noted Date Comments Rosuvastatin Unknown,Other (See comments) Low 07/20 Medications aspirin 81 mg tablet Take 1 tablet (81 mg total) by mouth daily Active atorvastatin (LIPITOR) 40 mg tablet Take 1 tablet (40 mg total) by mouth daily Active nitroglycerin (NITROSTAT) 0.[address] 1 tablet (0.4 mg total) under the tongue every 5 (five) minutes as needed for chest pain Active ibuprofen (ADVIL,MOTRIN) 400 mg tablet Take 1 tablet (400 mg total) by mouth every 4 (four) hours as needed for pain. This medication can be found over the counter, please follow the instructions listed on the packaging. 9 Active cholecalciferol (VITAMIN D-3) 2000 unit capsule 1 capsule (2,000 Units total) Active calcium carbonate (OS-BILLIE) 1,500 mg (600 mg of elemental calcium) tablet Take 1 tablet (1,500 mg total) by mouth Active levothyroxine (SYNTHROID) 25 mcg tablet Take 1 tablet (25 mcg total) by mouth early childhood before breakfast Active sertraline (ZOLOFT) 100 mg tablet Take 1 tablet (100 mg total) by mouth daily Active montelukast (SINGULAIR) 10 mg tablet Take 1 tablet (10 mg total) by mouth nightly Active magnesium oxide (MAG-OX) 400 mg (241.3 mg elemental magnesium) tabletIndicatio ns:hypomagnesem ia Take 1 tablet (400 mg total) by mouth daily Active ipratropium (ATROVENT) 21 mcg (0.03 %) nasal spray USE 2 SPRAY(S) IN EACH NOSTRIL TWICE DAILY NEEDED 1 Active Active Problems Problem Noted Date Diagnosed Date History of coronary artery stent placement 02/15 Paraesophageal hernia 07/10/2018 Overview (07/10/2018): Added automatically from request for surgery [id number] Depression 07/10/2018 Anxiety 07/10/2018 CAD (coronary artery disease) 07/10/2018 Hypothyroidism 07/10/2018 Social History Tobacco Use Types Packs/Day Years Used Date Smoking Tobacco: Former Cigarettes Q uit: 12/20/2006 Smokeless Tobacco: Never Tobacco Cessation:Counseling Given: Not Answered Alcohol Use Standard Drinks/Week Comments No 0 (1 standard drink = 0.6 oz pur e alcohol) Comments No Sex and Gender Information Value Date Recorded Sex Assigned at Not on file 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 Gender Identity Not on file Sexual Orientation Not on file Last Filed Vital Signs Vital Sign Reading Time Taken Comments Blood Pressure 120/76 02/24/2024 9:13 AM CDT Pulse 71 02/24/2024 9:13 AM CDT Temperature 37.1 C (98.7 F) 07/27/2018 8:46 AM GERMINATION WORKER Respiratory Rate 18 07/13/2018 12:45 PM GERMINATION WORKER Oxygen Saturation 99% 02/24/2024 9:13 AM CDT Inhaled Oxygen Concentration - - Weight 70.8 kg (156 lb) 02/24/2024 9:13 AM CDT Height 162.6 cm (5' 4 ) 02/24/2024 9:13 AM CDT Body Mass Index 26.78 02/24/2024 9:13 AM CDT Plan of Treatment Not on file [place] [address] [address] MEDICARE RAILROAD [facility]AD [facility] Advance Directives For more information, please contact: [phone] * Full Code (Latest Code Status on File) Date Activated Date Inactivated Comments 07/10/2018 6:52 AM 07/13/2018 5:43 PM Care Teams Yarder Operator Relationship Specialty Start Date End Date Americo Tomlin MD PCP - General 07/10/18
--- OUTSIDE RECORDS SUMMARY | 2024-10-16 12:31 | XMS_ITS | Data Portability ---
Author Organization [facility] [employer], Main Office Address [address] [place] [address] Care Team Providers Care Puppet Master Name Role Phone ALYSA TOMLIN Primary Care Provider Assessment No assessment recorded. Plan of Treatment Reminders Order Date Submit Date Provider Last Modified By Organization Details Last Modified Time Details Appointments Any 15 2024 10:00A M Alysa Tomlin MD Not available Not available Not available Lab vitamin D, 25-hydrox y, total, serum 2024 025 [email or web address] [facility], [address], [place], [address], 08/26/2024 10:30:29 CBC w/ auto diff 2024 025 MEGHAN Stanley, [address], [place], [address], 08/23/2024 01:27:13 TSH, ultra-sen sitive, serum 2024 025 tadeo [facility], [address], [place], [address], 08/26/2024 10:30:29 lipid panel, serum 2024 025 MEGHAN Stanley, [address], [place], [address], 08/22/2024 10:07:31 CMP, serum or plasma 2024 025 MEGHAN Stanley, 2022 [address], [place], [address], 08/22/2024 10:07:31 lipid panel, serum 2023 024 [email or web address] [id number] [facility], [address], [place], [address], 09/10/2023 07:59:42 CBC w/ auto diff 2023 024 MEGHAN [facility], [address], [place], [address], 09/05/2023 07:44:05 vitamin D, 25-hydrox y, total, serum 2023 024 [email or web address], [address], [place], [address], 09/10/2023 07:59:42 CMP, serum or plasma 2023 024 [place] [address] [facility], [address], [place], [address], 09/10/2023 07:59:42 TSH, ultra-sen sitive, serum 2023 024 [facility], [address], [place], [address], 09/10/2023 07:59:42 T3, free, serum or plasma 2023 024 [place] [address] [facility], [address], [place], [address], 09/10/2023 07:59:42 Referral None recorded. Procedures None recorded. Surgeries None recorded. Imaging XR, chest, 2 view 2024 025 [email or web address] [facility], [address], [place], [address], 10/15/2024 12:34:59 XR, lumbar spine 2022 023 [facility], [address], [place], [address], 05/07/2023 17:46:37 Medication Orders Zithromax Z-Bobby 250 mg tablet 2024 025 [facility], [address] [facility], [place], [address], 10/15/2024 09:30:54 Airsupra 90 mcg-80 mcg/actua tion HFA aerosol inhaler 2024 025 [email or web address] [facility], [address], [address], [place], [place], [id number], 10/15/2024 09:30:47 sertralin e 100 mg tablet 2024 025 HAWKINS [facility], [address], [address], [place], [place], [id number], 07/14/2024 10:54:48 atorvasta tin 40 mg tablet 2024 025 MEGHAN [facility], [address], [address], [place], [place], [id number], 07/14/2024 10:54:48 sertralin e 100 mg tablet 2023 024 [facility], [address], [address], [place], [place], [id number], 09/03/2023 13:31:07 atorvasta tin 40 mg tablet 2023 024 MEGHAN [facility], [address], [address], [place], [place], [id number], 09/03/2023 10:38:22 levothyro xine 25 mcg tablet 2023 024 [facility], [address], [address], [place], [place], [id number], 09/03/2023 13:31:[address] 10 mg tablet 2022 023 [email or web address] [facility], [address], [address], [place], [place], [id number], 09/03/2023 10:16:19 meloxicam 7.5 mg tablet 2022 023 [email or web address] [facility] [address], [address] [place], [address], 05/13/2023 12:43:25 atorvasta tin 40 mg tablet 2022 023 MEGHAN [facility], [address], [address], [place], [place], [id number], 05/05/2023 11:07:21 sertralin e 100 mg tablet 2022 023 MEGHAN [facility], [address], [address], [place], [place], [id number], 05/05/2023 11:07:18 levothyro xine 25 mcg tablet 2022 023 MEGHAN [facility], [address], [address], [place], [place], [id number], 05/05/2023 11:07:20 Patient TargetsNo targets recorded. Patient Instructions Encounter Date Encounter Id Patient Instructions Last Modified By Organization Details Last Modified Time 09/03/2023 [id number] dementia rating scale-2* Not available 09/03/2023 13:25:09 alcohol misuse* Not available 09/03/2023 13:25:09 depression screening* Not available 09/03/2023 13:25:09 multi-dimensiona l health assessment questionnaire* Not available 09/03/2023 13:25:08 Personalized [facility] Plan and Screening Recommendations Advance Directives - Do you have one? No Advance Directives - Do we have your advance directive on file in your health record? Primary Prevention/Interven tion (prevents or decreases the chance of common diseases from occurring) Smoking Risk: Non Smoker Alcohol Misuse Screening: Negative Weight: Appropriate Overwei ght continue your current weight loss efforts try to lose 5% of your body weight try to lose 10% of your body weight Physical activity: Need more exercise/physical activity Nutrition: Good Average Fall Risk (screened today): Low Vaccines Pneumococcal: Ordered Recommended today Recommended today, but you have declined No further needed Influenza: Your next one in the fall of this year Chronic Disease Risks Stroke: Low Risk Intermediate Risk I have no recommendations Act teresa diagnosis, Continue current treatment plan Heart Attack: Low risk Intermediate Risk I have no recommendations Act teresa diagnosis, Continue current treatment plan Clogging of the Arteries: Low risk Intermediate Risk I have no recommendations Act teresa diagnosis, Continue current treatment plan Diabetes: Low Risk Intermediate Risk I have no recommendations Ref er to attached handout P re-diabetes: After Your Visit Drastically limit sugar and products made with any type of flour (bread, pasta, cereal, cookies, crackers, etc.) Secondary Prevention/Interven tion (detects treatable diseases before they may cause symptoms, disability, or ) Breast Cancer Screening with mammogram: Cervical/Uterine/Ov jorge Cancer Screening: No screening necessary Osteoporosis Screening: Date Screening Last Performed: Colon Cancer Screening: Colonoscopy Date Screening Last Performed: __2019__ Eye Disease Screening: Dementia Risk: Low I have no recommendations Depression Screening: Negative [email or web address] Not available 09/03/2023 10:52:13 10/15/2024 [id number] Continue fluids and take medications as prescribed. Take otc tylenol for fever and body aches. Chest xray ordered, will call with results. Make sure to stay active and continue to stay hydrated. Not available 10/15/2024 09:30:45 Reason for Referral None Reported. Results Created Date Observation Date Name Description Value Unit Range Abnormal Flag Note LastModifiedBy Organization Detail LastModifiedTime 05/07/20 23 05/07/2023 XR, lumba r spine No observ ation record ed. [facility] [address], [place], [address], 05/12/2023 13:25:09 Result Notes None recorded. Problems Name Problem SNOMED Code Status Onset Date Resolution Date Notes Provider Name and Address Organization Details Recorded Time Venous varices 795845587 Active Not Available [facility] 3 01:13:10 Mammogra phy abnormal 566237574 Completed Not Available [facility] 3 01:13:10 Abdomina l pain 85761375 Completed Not Available [facility] 3 01:13:10 Gastroes ophageal reflux disease 952677946 Active Not Available [facility] 3 01:13:10 Thyroid nodule 435106502 Active 2021 Not Available [facility] 3 01:13:10 Thyroid nodule 887932852 Completed 201711/05/2017 Not Available [facility] 3 01:13:10 Long-ter m drug therapy Completed 202112/14/2021 Not Available [facility] 3 01:13:10 Adult health examinat ion Active 2021 Not Available [facility] 3 01:13:10 Anemia 677587996 Active Not Available [facility] 3 01:13:10 Hypertro phic obesity 315538362 Completed Not Available [facility] 3 01:13:11 Chest pain 22213269 Completed Not Available [facility] 3 01:13:11 Osteopen ia 306470955 Active Not Available [facility] 3 01:13:11 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 2016 Not Available [facility] 3 01:13:11 Hypothyr oidism 30100354 Active Not Available [facility] 3 01:13:11 Acute urinary tract infectio n 668914871 Completed 202108/19/2022 Lindsey terry, ATUL garcia, [place] [facility] [place] [employer] [facility] 3 08:26:01 Pain of bilatera l knee joints 74254229914 4104 Active 2021 Not Available [facility] 3 01:13:11 Anxiety 99344101 Active Not Available [facility] 3 01:13:12 Coronary arterios clerosis 63297289 Active 2008 s/p stent Not Available [facility] 3 01:13:12 Hyperlip idemia 83650486 Active Not Available [facility] 3 01:13:12 Essentia l hyperten zuhair 29528320 Active Not Available [facility] 3 01:13:12 Allergic rhinitis 18571530 Active 2020 Not Available [facility] 3 01:13:12 Closed fracture of head of radius 93311823 Completed Not Available [facility] 3 01:13:12 Hiatal hernia 40433457 Active 2016 Not Available [facility] 3 01:13:13 Ex-smoke r 3209400 Active stopped in 2006 Not Available [facility] 3 01:13:13 Vitamin D deficien cy 81284047 Active 2022 Alysa Tomlin MD [address], [address], [place], [address] , [facility] [employer] [facility] 3 10:47:32 Eruption 136225497 Active 2022 Alysa Tomlin MD [address], [address], [place], [address] , [facility] [employer] [facility] 3 11:00:13 Dizzines s 968666077 Active 2022 ATUL Aguayo null, [facility] 3 15:17:19 Vertigo 262234107 Active 2022 Alysa Tomlin MD [address], [address], [place], [address] , [facility] [employer] [facility] 3 15:34:41 Muscle pain 59502733 Active 2022 Lindsey terry RMA null, [facility] 3 17:12:19 Low back pain 433321361 Active 2022 Alysa Tomlin MD [address], [address], [place], [address] , [facility] 3 11:04:47 Knee pain Active 2022 Lindsey terry RMA null, [facility] 3 12:41:38 Chronic back pain 639937668 Active 2022 Lindsey terry RMA null, [facility] 3 12:41:51 Swelling of knee joint 985299562 Active 2024 Alysa Tomlin MD [address], [address], [place], [address] , [facility] [employer] [facility] 5 10:54:12 Bronchit is 85138060 Active 2024 MORALES Singh [address], [address], [place], [address] , [facility] [employer] [facility] 5 09:18:11 Problem Notes None recorded. Procedures Surgical History Date Name Laterality Status Provider Name and Address Organization Details Recorded Time 09/03/19 Medicare Wellness CPT Code, subsequent completed Mabel Case RN [facility] [employer] [facility] 09/03/2023 10:44:57 01/02/20 Medicare Wellness CPT Code, subsequent completed Maura Greer CMA [facility] [employer] [facility] 01/01/2023 10:27:23 08/29/19 23 Medicare Wellness CPT Code, subsequent completed Susanna Powell RN [facility] [employer] [facility] 08/28/2022 10:56:58 01/02/20 Date of Last Mammogram completed Susanna Powell RN [facility] [employer] [facility] 08/28/2022 11:00:02 11/04/19 20 Date of Last Colonoscopy completed Not Available [facility] 08/14/2022 00:59:40 05/27/20 19 Most Recent Bone Density completed Not Available [facility] 08/14/2022 00:59:40 extraction of multiple deciduous teeth completed Not Available [facility] 08/14/2022 00:59:49 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 Medical Equipment None Reported. Allergies Allergen ID Allergen Name Allergen Category Reaction Reaction Severity Criticality Documentation Date Start Date Code Code System Note Provider Name and Address Organization Details Recorded Time 2516 Crestor medicatio n other Not available Not available 08/14/2022 77490 4 RxNorm Mood hyman e, memor y Not Available [facility] 3 01:30:55 2517 Lipitor medicatio n Not available Not available Not available 08/14/2022 65860 5 RxNorm Not Available [facility] 3 01:30:55 Medications Name Sig Start Date Stop Date Status Note LastModified by Organization Details LastModified Time amoxicill in 500 mg capsule active Not Available Not Available Not Available atorvasta tin 40 mg tablet TAKE 1 TABLET BY MOUTH DAILY 2024 active Not Available Not Available Not Avai lable benzonata te 200 mg capsule Take 1 capsule 3 times a day by oral route for 7 days. 07/29 completed Not Available Not Available Not Available ampicilli n 500 mg capsule TAKE 1 CAPSULE BY MOUTH FOUR TIMES DAILY UNTIL GONE active Not Available Not Available No t Available hydrocodo ne 5 mg-acetam inophen 325 mg tablet TAKE ONE TABLET BY MOUTH EVERY 4 TO 6 HOURS NEEDED active Not Available Not Available No t Available sertralin e 100 mg tablet TAKE 1 TABLET BY MOUTH DAILY 2024 active Not Available Not Available Not Avai lable Zithromax Z-Bobby 250 mg tablet TAKE 2 TABLETS (500 MG) BY ORAL ROUTE ONCE DAILY FOR 1 DAY THEN 1 TABLET (250 MG) BY ORAL ROUTE ONCE DAILY FOR 4 DAYS 2024 active Not Available Not Available Not Avai lable acetamino phen 300 mg-codein e 30 mg tablet active Not Available Not Available Not Available clopidogr el 75 mg tablet Take 1 tablet by mouth every day 04/23 completed Not Available Not Available Not Available aspirin 81 mg tablet,de layed release Take 1 tablet every day by oral route. 2020 active Not Available Not Available Not Avai lable triamcino lone acetonide 0.1 % topical cream APPLY A THIN LAYER TO THE AFFECTED AREA(S) BY TOPICAL ROUTE 2 TIMES PER DAY 10/15 completed Not Available Not Available Not Available simvastat in 40 mg tablet active Not Available Not Available Not Available levothyro xine 25 mcg tablet TAKE 1 TABLET BY MOUTH DAILY 2023 active KARINA 01/14/24 NOV 07/14/24 ok to rf Not Available Not Available Not Available levothyro xine 75 mcg tablet Take 1 tablet every day by oral route. 09/30 completed [facility] For [facility] Not Available Not Available Not Available meloxicam 7.5 mg tablet Take 1 tablet every day by oral route. 05/13 completed changed to Diclofen ac Not Available Not Available Not Available bupropion HCl 100 mg tablet active Not Available Not Available No t Available alprazola m 0.5 mg tablet TAKE 1 TABLET BY MOUTH THE NIGHT PRIOR TO VISIT AND 1 TABLET 1 HOUR PRIOR TO VISIT active Not Available Not Available No t Available prednisol one acetate 1 % eye drops,candy pension 03/31 completed Not Available Not Available Not Available meclizine 25 mg tablet Take 1 tablet 3 times a day by oral route as needed. 05/05 completed Not Available Not Available Not Available levothyro xine 50 mcg tablet TAKE 1 TABLET BY MOUTH EVERY DAY active Not Available Not Available No t Available cephalexi n 500 mg capsule Take 1 capsule 4 times a day by oral route for 7 days. 12/02 completed Not Available Not Available Not Available pantopraz ole 40 mg tablet,de layed release TAKE 1 TABLET BY MOUTH EVERY DAY 12/02 completed Not Available Not Available Not Available esomepraz ole magnesium 40 mg capsule,d elayed release TAKE 1 CAPSULE BY MOUTH DAILY 03/09 completed Not Available Not Available Not Available nitroglyc santi 0.4 mg sublingua l tablet TAKE DIRECTED active Dr. Tomlin Not Available Not Available Not Available diclofena c sodium 75 mg tablet,de layed release TAKE 1 TABLET BY MOUTH TWICE DAILY NEEDED 07/14 completed Not Available Not Available Not Available monteluka st 10 mg tablet TAKE 1 TABLET BY MOUTH DAILY 09/02 completed Not Available Not Available Not Available sertralin e 50 mg tablet TAKE 1 TABLET BY MOUTH EVERY DAY 12/29 completed Not Available Not Available Not Available ipratropi um bromide 21 mcg (0.03 %) nasal spray USE 2 SPRAY(S) IN EACH NOSTRIL TWICE DAILY NEEDED 05/05 completed Not Available Not Available Not Available amoxicill in 875 mg-potass ium clavulana te 125 mg tablet TAKE 1 TABLET BY MOUTH EVERY 12 HOURS active Not Available Not Available No t Available oxycodone 5 mg tablet 07/29 completed Not Available Not Available Not Available Zetia 10 mg tablet Take 1 tablet every day by oral route for 90 days. active Not Available Not Available No t Available cyclobenz aprine 5 mg tablet Take 1 tablet 3 times a day by oral route. 05/05 completed Not Available Not Available Not Available moxifloxa ami 0.5 % eye drops 03/31 completed Not Available Not Available Not Available magnesium OTC 2021 active Not Available Not Available Not Avai lable calcium OTC 2021 active Not Available Not Available Not Avai lable Vitamin D 1,000u daily 2019 active Not Available Not Available Not Avai lable red yeast rice 600 mg capsule 2012 active Not Available Not Available Not Avai lable aspirin 81 mg effervesc ent tablet Take 1 tablet every day by oral route. 2012 active Not Available Not Available Not Avai lable Suprep Bowel Prep Kit 17.5 gram-3.13 gram-1.6 gram oral solution active Not Available Not Available Not Available Xarelto 20 mg tablet 09/15 completed Not Available Not Available Not Available Fluad 65yr up(PF)45 mcg(15 mcgx3)/0. 5 mL intramusc ular syringe PHARMACI ST ADMINIST ERED IMMUNIZA TION ADMINIST ERED AT TIME OF DISPENSI NG 08/04 completed Not Available Not Available Not Available Airsupra 90 mcg-80 mcg/actua tion HFA aerosol inhaler Inhale 2 inhalati ons every 12 hours by inhalati on route as needed for 5 days, for shortnes s of breath and wheezing . 2024 active Not Available Not Available Not Avai lable Vitals Date Recorded Body height Body mass index (BMI) Body weight Body temperature Heart rate Oxygen saturation Oxygen saturation in Arterial blood by Pulse oximetry Systolic blood pressure Diastolic blood pressure Provider Name and Address Organization Details Last Updated DateTime 3 160.02 cm 27.6 kg/m2 09041.4 1 g 96.2 [degF] 77 /min 97 % 97 % 110 mm[Hg] 60 mm[Hg] Jorge Lazo [facility] [employer] [facility] 3 10:32:02 Date Recorded Body height Body mass index (BMI) Body weight Body temperature Oxygen saturation Oxygen saturation in Arterial blood by Pulse oximetry Heart rate Systolic blood pressure Diastolic blood pressure Provider Name and Address Organization Details Last Updated DateTime 4 160.02 cm 27.6 kg/m2 62469.4 1 g 97.9 [degF] 97 % 97 % 71 /min 112 mm[Hg] 68 mm[Hg] Susanna galo [facility] [employer] [facility] 4 10:15:21 Date Recorded Pain severity - 0-10 verbal numeric rating [Score] - Reported Provider Name and Address Organization Details Last Updated DateTime 09/03/2023 0 Mabel Case RN [facility] [employer] [facility] 09/03/2023 10:45:18 Date Recorded Body height Body mass index (BMI) Body weight Body temperature Heart rate Oxygen saturation Oxygen saturation in Arterial blood by Pulse oximetry Systolic blood pressure Diastolic blood pressure Provider Name and Address Organization Details Last Updated DateTime 4 160.02 cm 27.5 kg/m2 09542.8 2 g 97.5 [degF] 75 /min 98 % 98 % 120 mm[Hg] 70 mm[Hg] Dory Antonio [facility] [employer] [facility] 4 10:55:56 Date Recorded Body height Body mass index (BMI) Body weight Body temperature Heart rate Oxygen saturation Oxygen saturation in Arterial blood by Pulse oximetry Systolic blood pressure Diastolic blood pressure Provider Name and Address Organization Details Last Updated DateTime 5 160.02 cm 27.3 kg/m2 58957.2 2 g 97.5 [degF] 70 /min 95 % 95 % 124 mm[Hg] 78 mm[Hg] Korin jones [employer] [facility] [employer] [facility] 5 10:26:39 Date Recorded Body height Body mass index (BMI) Body weight Body temperature Heart rate Oxygen saturation Oxygen saturation in Arterial blood by Pulse oximetry Systolic blood pressure Diastolic blood pressure Provider Name and Address Organization Details Last Updated DateTime 5 160.02 cm 27.1 kg/m2 63074.6 3 g 98.1 [degF] 99 /min 95 % 95 % 118 mm[Hg] 72 mm[Hg] Korin jones [employer] [facility] [employer] [facility] 5 09:08:16 Social History Question Answer Notes LastModified by Organization Details LastModified Time Tobacco Smoking Status Former Smoker Not Available [facility] 08/14/2022 00:49:40 Do You Have An Advance Directive? No Papers Given Previously [email or web address] Information not available 09/03/2023 What Is Your Level Of Alcohol Consumption? None [id number] Information not available 08/14/2022 Are You Blind Or Do You Have Difficulty Seeing? No [email or web address].[id number] [id number] Information not available 08/14/2022 What Is Your Level Of Caffeine Consumption? Occasional [email or web address].[id number] [id number] Information not available 08/14/2022 How Much Tobacco Do You Chew? None [email or web address].0301 [id number] Information not available 08/14/2022 Are You Deaf Or Do You Have Serious Difficulty Hearing? No [email or web address].[id number] [id number] Information not available 08/14/2022 What Type Of Diet Are You Following? REGULAR MIGRATION.0301 [id number] Information not available 08/14/2022 Which Illicit Or Recreational Drugs Have You Used? None [email or web address].[id number] [id number] Information not available 08/14/2022 What Is Your Occupation? Retired MIGRATION.0301 [id number] Information not available 08/14/2022 Have There Been Any Changes To Your Family Or Social Situation? No MIGRATION.0301 [id number] Information not available 08/14/2022 What Is The Fluoride Status Of Your Home? Fluoridated MIGRATION.0301 [id number] Information not available 08/14/2022 When Did You Quit Smoking? 16+yearssincelast cigarette Information not available 08/28/2022 Are There Any Guns Present In Your Home? No MIGRATION.0301 [id number] Information not available 08/14/2022 [facility] MIGRATION.0301 [id number] Information not available 08/14/2022 Guns Present In The Home? No [email or web address] Information not available 09/03/2023 Are You Able To Care For Yourself? Yes [email or web address] Information not available 08/28/2022 Are You Blind Or Do Yo Have Difficulty Seeing? No [email or web address] Information not available 08/28/2022 Are You Deaf Or Do You Have Serious Difficulty Hearing? No [email or web address] Information not available 08/28/2022 Live Alone Of With Others? With Others Information not available 09/03/2023 What Was The Date Of Your Most Recent Tobacco Screening? 09/03/2023 [email or web address] Information not available 09/03/2023 What Is Your Current Pack Years? 30ormorepackyears [email or web address] Information not available 08/28/2022 Do You Have Any Pets? No [email or web address] Information not available 09/03/2023 Do You Use Your Seat Belt Or Car Seat Routinely? Yes MIGRATION.0301 [id number] Information not available 08/14/2022 Do You Have Smoke And Carbon Monoxide Detectors In Your Home? Yes MIGRATION.0301 [id number] Information not available 08/14/2022 At What Age Did You Start Smoking Tobacco? 16 MIGRATION.0301 [id number] Information not available 08/14/2022 Are You Passively Exposed To Smoke? No [email or web address] Information not available 09/03/2023 Are There Any Smokers In Your House? No [email or web address] Information not available 09/03/2023 How Much Tobacco Do You Smoke? 2 PPD MIGRATION.0301 [id number] Information not available 08/14/2022 Do You Feel Stressed (tense, Restless, Nervous, Or Anxious, Or Unable To Sleep At Night)? [id number] MIGRATION.[id number] Information not available 08/14/2022 Do You Use Sunscreen Routinely? No MIGRATION.[id number] Information not available 08/14/2022 Have You Recently Traveled Abroad? No [email or web address] Information not available 09/03/2023 Do You Have Any Dietary Restrictions? No [email or web address] Information not available 09/03/2023 Sex: Female Functional Status Question Answer Note LastModified by Organizat ion Details LastModified Time Do you have difficulty walking or climbing stairs? No MIGRATION.[id number] 026 Information not available 08/14/2022 Do you have transportation difficulties? No MIGRATION.6482135 026 Information not available 08/14/2022 Are you able to walk? YESWOREST MIGRATION.[id number] 026 Information not available 08/14/2022 Are you able to care for yourself? Yes MIGRATION.[id number] 026 Information not available 08/14/2022 Do you have difficulty dressing or bathing? No MIGRATION.8513718 026 Information not available 08/14/2022 What is your exercise level? None [email or web address] Information not available 09/03/2023 Mental Status Question Answer Note LastModified by Organizat ion Details LastModified Time Do you have difficulty concentrating, remembering or making decisions? No MIGRATION.[id number] Information not available 08/14/2022 Family History Relationship Description Onset Age of this Age Resolved Age Notes LastModified by Organization Details LastModified Time Mother Heart disease MIGRATION.841 [id number] Not available 08/14/2022 00:59:51 Mother Diabetes mellitus MIGRATION.244 [id number] Not available 08/14/2022 00:59:51 Sister Diabetes mellitus MIGRATION.614 [id number] Not available 08/14/2022 00:59:51 Sister Heart disease MIGRATION.117 [id number] Not available 08/14/2022 00:59:51 Sister Depressive disorder MIGRATION.444 [id number] Not available 08/14/2022 00:59:51 Brother Diabetes mellitus MIGRATION.124 [id number] Not available 08/14/2022 00:59:51 Father Malignant neoplastic disease testic saba FROST.267 [id number] Not available 08/14/2022 00:59:51 Medical History No medical history recorded. Gynecological History Statement/Question Response Date of Last Mammogram 01/01/2021 Date of Last Colonoscopy 11/04/2019 Date of Last Mammogram 01/01/2021 Most Recent Bone Density 05/27/2019 Obstetrics History GPAL:G 0 P 0 0 0 0 Immunizations Vaccine Type Date Status Note Provider Nam e and Address Organization Details Recorded Time Influenza, high-dose, trivalent, PF 5 completed Not Available [facility] 08/14/2022 01:30:02 Influenza, split virus, quadrivalent, preservative 9 completed Susanna Borden CMA null, [facility] [employer] [facility] 09/03/2023 10:15:26 Influenza, high-dose, trivalent, PF 2 completed Not Available [facility] 08/14/2022 01:30:03 Influenza, high-dose, trivalent, PF 1 completed Susanna Borden CMA null, [facility] [employer] [facility] 09/03/2023 10:15:26 Influenza, high-dose, trivalent, PF 0 completed Susanna Borden CMA null, [facility] [employer] [facility] 09/03/2023 10:15:26 COVID-19, mRNA, LNP-S, PF, 30 mcg/0.3 mL dose 1 completed SARAH Matos, [facility] [employer] [facility] 09/03/2023 10:15:26 Influenza, high-dose, quadrivalent, PF 1 completed Not Available [facility] 08/14/2022 01:30:03 SARS-COV-2 (COVID-19) vaccine, UNSPECIFIED 1 completed Susanna Borden CMA null, [facility] [employer] [facility] 09/03/2023 10:15:26 SARS-COV-2 (COVID-19) vaccine, UNSPECIFIED 1 completed Susanna Borden CMA null, [place] [facility] [employer] 09/03/2023 10:15:26 pneumococcal polysaccharide PPV23 9 completed Not Available [facility] 08/14/2022 01:30:04 DTaP 9 completed Not Available [facility] 08/14/2022 01:30:04 Influenza, high-dose, trivalent, PF 8 completed Not Available [facility] 08/14/2022 01:30:04 Influenza, high-dose, trivalent, PF 7 completed Not Available [facility] 08/14/2022 01:30:04 Influenza, high-dose, trivalent, PF 6 completed Not Available [facility] 08/14/2022 01:30:05 Pneumococcal conjugate PCV 13 6 completed Not Available [facility] 08/14/2022 01:30:05 pneumococcal polysaccharide PPV23 5 completed Not Available [facility] 08/14/2022 01:30:05 Influenza, split virus, quadrivalent, preservative 5 completed Not Available [facility] 08/14/2022 01:30:05 Influenza, split virus, trivalent, PF [address] [facility], [place] [facility] [employer] [facility] 09/03/2023 10:15:26 Past Encounters Encounter ID Performer Location Encounter Start Date Encounter Closed Date Diagnosis/Indication Diagnosis SNOMED-CT Code Diagnosis ICD10 Code Diagnosis Note [id number] MD SEDA [facility] [address] [facility] [place] [address] 08/16/2020 00:00:00 08/16/2020 12:02:06 [id number] MD SEDA [facility] [address] [facility] [place] [address] 12/20/2020 00:00:00 12/20/2020 11:57:36 [id number] MD SEDA [facility] [address] [place] [place] [address] 04/23/2021 00:00:00 04/23/2021 10:26:03 [id number] Alysa Tomlin MD [facility] [address] [place] [address] 08/21/2021 00:00:00 08/21/2021 16:51:01 [id number] Alysa Tomlin MD [facility] [address] [place] [address] 12/24/2021 00:00:00 12/24/2021 11:23:46 [id number] Alysa Tomlin MD [facility] Internal Med [facility] [address] [place] [address] 04/29/2022 00:00:00 04/29/2022 11:13:15 [id number] Alysa Tomlin MD [facility] [address] [place] [address] 08/28/2022 10:15:24 08/28/2022 10:55:08 Adult health examination 578663854 Z00.00 Colonoscop y- 11/04/2019M ammogram- 2021Dexa- 05/27/19Pn eumovax - 04/2019,Prevn ar 05/2019FLU -2CO VID- 08/29/20, 09/29/20, 04/13/2021 , 03/2022 Coronary arteriosclerosis 15503272 I25.10 s/p stents, on asa Hypothyroidism 79384573 E03.9 under control with meds Anxiety 99746131 F41.9 better with meds Allergic rhinitis 677807 04 J30.9 meds help Hyperlipidemia 86061522 E78.5 on meds Essential hypertension 77392539 I10 under control Anemia 788791079 D64.9 stable Gastroesop hageal reflux disease 554718690 K21.9 stable Hiatal hernia 60355065 K 44.9 s/p surgery, no symptoms Ex-smoker 2613740 Z87.89 1 quit in 2006 Thyroid nodule 131950464 E04.1 getting us from ENT Venous varices 866204554 I83.90 using pressure stockings Pain of bi lateral knee joints 6574465130 71344 M25.561 otc voltaren Vitamin D deficiency 347 20264 E55.9 Screening mammography 24 903525 Z12.31 Postmenopausal state 764 69906 Z78.0 Screening for disorder 218538532 Z13.9 [id number] Alysa Tomlin MD [facility] Internal [facility] [address] [facility] [place] [address] 01/01/2023 10:22:06 01/01/2023 11:02:49 Adult health examination 351595724 Z00.00 Colonoscop y- 11/04/2019M ammogram- 3Dexa- 3Pneumo vax - 04/2019,Prevn ar 05/2019FLU -2CO VID- 08/29/20, 09/29/20, 04/13/2021 , 03/2022 Coronary arteriosclerosis 62355557 I25.10 s/p stents, on asa Hypothyroidism 63998057 E03.9 under control with meds Anxiety 43346419 F41.9 better with meds Allergic rhinitis 505720 04 J30.9 meds help Hyperlipidemia 40974640 E78.5 on meds and under control Essential hypertension 02224595 I10 under control Anemia 179280170 D64.9 stable Gastroesop hageal reflux disease 336138868 K21.9 stable Hiatal hernia 86125547 K 44.9 s/p surgery, no symptoms Ex-smoker 0259964 Z87.89 1 quit in 2006 Thyroid nodule 864970713 E04.1 small, no more f/u needed Venous varices 835534438 I83.90 using pressure stockings Pain of bi lateral knee joints 7882557849 29470 M25.561 otc voltaren prn Vitamin D deficiency 347 72358 E55.9 otc History of deep vein thrombosis 252463651 Z86.718 no recurrence Eruption 784914057 R21 [id number] Alysa Tomlin MD S[facility] Internal Med [facility] [address] [place] [place] [address] 03/10/2023 15:08:43 03/10/2023 15:39:30 Vertigo 077417592 R42 meclizine [id number] Alysa Tomlin MD [facility] Internal Med [facility] [address] [place] [place] [address] 05/05/2023 10:23:12 05/05/2023 11:11:55 Adult health examination 217495370 Z00.00 Colonoscop y- 11/04/2019M ammogram- exa- 3Pneumo vax - 04/2019,Prevn ar 05/2019FLU -03/2022, 3COV ID- 08/29/20, 09/29/20, 04/13/2021 , 03/2022 Coronary arteriosclerosis 29794240 I25.10 s/p stents, on asa Hypothyroidism 51348620 E03.9 under control with meds Anxiety 25811608 F41.9 better with meds Allergic rhinitis 963643 04 J30.9 meds help Hyperlipidemia 29188581 E78.5 on meds and under control Essential hypertension 10347266 I10 under control Anemia 622293185 D64.9 stable Gastroesop hageal reflux disease 483118159 K21.9 stable Hiatal hernia 27784038 K 44.9 s/p surgery, no symptoms Ex-smoker 2057028 Z87.89 1 quit in 2006 Thyroid nodule 711814533 E04.1 small, no more f/u needed Venous varices 209941880 I83.90 using pressure stockings Pain of bi lateral knee joints 8217143541 20220 M25.561 otc voltaren prn Vitamin D deficiency 347 15757 E55.9 otc History of deep vein thrombosis 940257127 Z86.718 no recurrence Low back pain 898129100 M54.50 [id number] Alysa Tomlin MD [facility] [address] [facility] [place] [address] 09/03/2023 10:08:01 09/03/2023 10:46:26 Hypothyroidism 82185763 E03.9 under control with meds Anxiety 44777979 F41.9 better with meds Essential hypertension 69279176 I10 under control , no meds Adult heal th examination 098655721 Z00.00 Colonoscop y- 11/04/2019M ammogram- 3Dexa -3Pneumo vax - 04/2019,Prevn ar 05/2019FLU -03/2022, 3COV ID- 08/29/20, 09/29/20, 04/13/2021 , 03/2022 Coronary arteriosclerosis 56932505 I25.10 s/p stents, on asa Allergic rhinitis 262905 04 J30.9 meds help Hyperlipidemia 12023327 E78.5 on meds and under control Anemia 236540426 D64.9 stable Gastroesop hageal reflux disease 939066753 K21.9 stable Hiatal hernia 80401694 K 44.9 s/p surgery, no symptoms Ex-smoker 9624125 Z87.89 1 quit in 2006 Thyroid nodule 428329893 E04.1 small, no more f/u needed Venous varices 360627507 I83.90 using pressure stockings Pain of bi lateral knee joints 0457667349 56633 M25.561 otc voltaren prn helps Vitamin D deficiency 347 62255 E55.9 otc History of deep vein thrombosis 682946783 Z86.718 no recurrence Low back pain 179205423 M54.50 improved Screening for disorder 835140837 Z13.9 [id number] Alysa Tomlin MD [facility] [address] [place] [address] 01/14/2024 10:44:50 01/14/2024 11:31:08 Chronic back pain 602317639 G89.29 better Hypothyroidism 04711761 E03.9 under control with meds Anxiety 91626086 F41.9 better with meds Essential hypertension 31021898 I10 under control , no meds Adult heal th examination 386774960 Z00.00 Colonoscop y- 11/04/2019M ammogram- 11/2022, wants to wait for a year to get it done with dexaDexa-3Pneumo vax - 04/2019,Prevn ar 05/2019FLU -03/2022, 3COV ID- 08/29/20, 09/29/20, 04/13/2021 , 03/2022 Coronary arteriosclerosis 96001124 I25.10 s/p stents, on asa Allergic rhinitis 528007 04 J30.9 meds help Hyperlipidemia 77811435 E78.5 on meds and under control Anemia 080914680 D64.9 improved Gastroesop hageal reflux disease 161150643 K21.9 stable Hiatal hernia 94404585 K 44.9 s/p surgery, no symptoms Ex-smoker 4283401 Z87.89 1 quit in 2006 Thyroid nodule 720279546 E04.1 small, no more f/u needed Venous varices 399555321 I83.90 using pressure stockings and helps Pain of bi lateral knee joints 5928589524 99342 M25.561 otc Vitamin D deficiency 347 97485 E55.9 otc History of deep vein thrombosis 252008699 Z86.718 no recurrence Low back pain 470697430 M54.50 better [id number] Alysa Tomlin MD [facility] [address] [place] [place] [address] 07/14/2024 10:17:22 07/14/2024 10:56:43 Essential hypertension 55208423 I10 under control , no meds needed Hypothyroidism 75719708 E03.9 under control with meds Chronic back pain 536504 002 G89.29 better Anxiety 90942464 F41.9 better with meds Adult heal th examination 802921413 Z00.00 Colonoscop y- 11/04/2019M ammogram- 11/2022, wants to wait for a year to get it done with dexaDexa-3Pneumo vax - 04/2019,Prevn ar 13- 05/2019FLU -03/2022, 04/2023, 4COVID- 08/29/20, 09/29/20, 04/13/2021 , 03/2022 Coronary arteriosclerosis 34175256 I25.10 stable Allergic rhinitis 017582 04 J30.9 meds help Hyperlipidemia 59629202 E78.5 on meds and under control Anemia 054034631 D64.9 improved Gastroesop hageal reflux disease 226071623 K21.9 stable Hiatal hernia 16808648 K 44.9 s/p surgery, no symptoms Ex-smoker 1779980 Z87.89 1 quit in 2006 Thyroid nodule 918164546 E04.1 small, no more f/u needed Venous varices 800086981 I83.90 using pressure stockings and helps Vitamin D deficiency 347 29100 E55.9 otc History of deep vein thrombosis 629446786 Z86.718 no recurrence Low back pain 173631500 M54.50 better Swelling o f knee joint 180870977 M25.469 improving, local voltaren gel [id number] Alysa Tomlin MD [facility] [address] [place] [address] 10/15/2024 08:59:12 10/15/2024 12:34:59 [facility] 96812434 J40 Health Concerns Section Related Observation LastModified by Organization Detai ls LastModified Time None Recorded Concern Status LastModified by Organization Details LastModified Time None Recorded Advance Directives Directive N: papers given previously Payers Encounter Date Sequence Insurance Name Policy Number Policy Hernandez Covered Member ID Hernandez Member ID Guarantor Name 05/05/2023 1 [facility] Tamie Hunter German [id number] Tamie Hunter German 05/05/2023 2 [facility] - PLAN E [facility]PPO) [id number] [id number] Tamie Hunter German 09/03/2023 1 [facility] B[facility] Tamie Hunter German [id number] Tamie Hunter German 09/03/2023 2 [facility] - PLAN E (PPO) [id number] [facility] [id number] Tamie Hunter German 01/14/2024 1 [facility] Tamie J German [id number] Tamie Hunter German 01/14/2024 2 [facility] - [facility] CLAIM [facility] - PLAN E (PPO) [id number] [facility] German [id number] Tamie Hunter German 07/14/2024 1 [facility]IC[facility] B[facility] Tamie J German [id number] Tamie German 07/14/2024 2 [facility] - PLAN E (PPO) [id number] Nicho Malloyter [id number] Tamie Hunter Maxi 10/15/2024 1 MEDICARE B: [place] [facility] - RAILROAD MEDICARE Tamie Hunter Maxi [id number] Tamie Elsa Maxi 10/15/2024 2 [facility] - PLAN E (PPO) [id number] Nicho Spencer German [id number] Tamie J Maxi Notes Date Note Type Note Provider Name and Address Organization Details Recorded Time 05/05/2023 text/html Pt is here for 4 month f/u. compliant to medications, no side affects, Pt complains of back pain. lower back, no radiation. Hypothyroidism- on meds, TSH neededMeds- Levothyroxine 25 mcg dailyCAD-- s/p stent dr Paniagua, no symptoms, no cp or sobMeds- Aspirin 81 mg dailyHTN- Is under controlGERD- better without protonix since had hiatal hernia surgeryAnxiety- better with meds, sleeps fine, no depression symptomsMeds- Sertraline 100 mg dailyOsteopenia- on vit D and calcium, otcVaricose veins on the legs, using compressions and helpsHyperlipidemia- on meds, labs good 09/05Meds- Atorvastatin 40 mg dailyVit D deficiency-- on otc,DVT in 12/30, right leg, no recurrenceHiatal Hernia-s/p surgery for incarcerated hiatal herniaThyroid nodule- seen on the CT scan , ultrasound 10/02 and 11/02 unchanged , seen ENT,f/u ultra sound from ENT showed small size, no more f/u needed Alysa Tomlin MD [address] [facility], [facility] [address], [place], [address], [place] [facility] [employer] 05/05/2023 11:08:07 09/03/2023 text/html Pt is here for 4 month f/u. compliant to medications, no side affects, Hypothyroidism- on meds, TSH neededMeds- Levothyroxine 25 mcg dailyCAD-- s/p stent dr Paniagua, no symptoms, no cp or sobMeds- Aspirin 81 mg dailyHTN- Is under control WITHUT MEDSGERD- better without protonix since had hiatal hernia surgeryAnxiety- better with meds, sleeps fine, no depression symptomsMeds- Sertraline 100 mg dailyOsteopenia- on vit D and calcium, otcVaricose veins on the legs, using compressions and helpsHyperlipidemia- on meds, labs good 09/05, dueMeds- Atorvastatin 40 mg dailyVit D deficiency-- on otc,DVT in 12/30, right leg, no recurrenceHiatal Hernia-s/p surgery for incarcerated hiatal herniaThyroid nodule- seen on the CT scan , ultrasound 10/02 and 11/02 unchanged , seen ENT ,f/u ultra sound from ENT showed small size, no more f/u needed Arthritis- has taken diclofenac with improvement, not taking any more Alysa Tomlin MD [address] [facility], [facility] [address], [place], [address], [place] [facility] [employer] 09/03/2023 13:25:13 01/14/2024 text/html Pt is here for 4 month f/u. compliant to medications, no side affects, Hypothyroidism- on meds, TSH under controlMeds- Levothyroxine 25 mcg dailyCAD-- s/p stent dr Paniagua, no symptoms,Meds- Aspirin 81 mg dailyHTN- under control WITHUT MEDSGERD- better without protonix since had hiatal hernia surgeryAnxiety- better with meds, sleeps fine, no depression symptoms, no side effectsMeds- Sertraline 100 mg dailyOsteopenia- on vit D and calcium, otc , dexa 12/06Varicose veins on the legs, using compressions and helpsHyperlipidemia- on meds, labs goodMeds- Atorvastatin 40 mg dailyVit D deficiency-- on otc,DVT in 12/30, right leg, no recurrenceHiatal Hernia-s/p surgery for incarcerated hiatal herniaThyroid nodule- seen on the CT scan , ultrasound 10/02 and 11/02 unchanged , seen ENT ,f/u ultra sound from ENT showed small size, no more f/u needed Arthritis- has taken diclofenac with improvement, not taking any more, otc Alysa Tomlin MD [address], [place], [address], [employer] 01/14/2024 13:29:20 07/14/2024 text/html Pt is here for 4 month f/u. compliant to medications, no side affects, med refill. Pt fell in may in the bath tub and hurt her left knee. It does not hurt any more, still has Pt is fasting (PALAMETTO) Hypothyroidism- on meds, TSH under controlMeds- Levothyroxine 25 mcg dailyCAD-- s/p stent dr Paniagua, no symptoms,Meds- Aspirin 81 mg dailyHTN- under control WITHUT MEDSGERD- better without protonix since had hiatal hernia surgeryAnxiety- better with meds, sleeps fine, no depression symptoms, no side effectsMeds- Sertraline 100 mg dailyOsteopenia- on vit D and calcium, otc , dexa 12/06Varicose veins on the legs, using compressions and helpsHyperlipidemia- on meds, under controlMeds- Atorvastatin 40 mg dailyVit D deficiency-- on otc,DVT in 12/30, right leg, no recurrenceHiatal Hernia-s/p surgery for incarcerated hiatal herniaThyroid nodule- seen on the CT scan , ultrasound 10/02 and 11/02 unchanged , seen ENT ,f/u ultra sound from ENT showed small size, no more f/u needed Arthritis- has taken diclofenac with improvement, not taking any more, otc Alysa Tomlin MD [address], [facility] [address], [place], [address], [employer] 07/14/2024 10:55:03 10/15/2024 text/html Upper Respirator y SymptomsReported bypatient.Location[facility]; reports congestion Quality:productive cough;colored phlegm;congested;hacki ng cough;wheezy cough Severity:mild Duration:reports 3 days but feels so badly Context:no sick contacts; no foreign travel; ex smoker Associated Symptoms:yellow-green, thick sputum;green sputum started with cough, three days prior, fever on and offreports no sick contactsstopped smoking in 2017 DEYSI Singh-Tj [address] [facility], [facility] [address], [place], [address], [place] [facility] 10/15/2024 09:34:51 OBGyn Episode No OBEpisode recorded.
--- OUTSIDE RECORDS SUMMARY | 2024-10-16 12:31 | XMS_ITS | CONTINUITY OF CARE DOCUMENT ---
Author Name vee baxter Address Unknown Organization [facility] Address [address] [place] [address] Phone [phone] Care Team Providers Care Traffic Signal Technician Name Role Phone Norberto Leyva MD Unavailable [phone] Americo Tomlin MD Unavailable [phone] Americo Tomlin MD Unavailable [phone] PROBLEMS Condition Status Date Provider Notes CHEST PAIN active Wei Ferreira Hypercholesterolemia, mixed active Cori Maynard uenenfelder HYPOTHYROIDISM active ? Norberto Leyva MD SHORTNESS OF BREATH active Wei Gee rg CAD S/P LAD STENT 04/2009 active Wei Ferreira PVC's active Wei Ferreira Hypertension active Wei Ferreira RUQ PAIN completed - Wei Ferreira SVT active Wei Ferreira Family History of Hypertension: completed - Norberto Leyva MD Acute DVT of R popliteal vein active Alexan Davila Venous insufficiency active Norberto Leyva MD Tobacco use, quit active Wei Ferreira Preop exam active Norberto Leyva MD Hiatal hernia active Norberto Leyva MD Hx of ANEMIA active Wei Ferreira Varicose veins active Kerrie Zhang ENCOUNTERS Date Type Provider Location Encounter Diag nosis - In-person encounter Office Visit Norberto Leyva MD [facility] Preop exam - In-person encounter Office Visit Norberto Leyva MD [facility] Hiatal hernia - In-person encounter Office Visit Norberto Leyva MD [facility] CHEST PAINSHORTNESS OF BREATHCAD S/P LAD STENT 04/2009PVC'sHypertensionRUQ PAINSVTFamily History of Hypertension:Acute DVT of R popliteal veinVenous insufficiencyHx of ANEMIATobacco use, quit - In-person encounter Office Visit Norberto Leyva MD [facility] Varicose veins - In-person encounter Office Visit Norberto Leyva MD [facility] - In-person encounter Office Visit Norberto Leyva MD [facility] - In-person encounter Office Visit Norberto Leyva MD [facility] SVT - In-person encounter Office Visit Norberto Leyva MD [facility] - In-person encounter Office Visit Norberto Leyva MD [facility] - In-person encounter Office Visit Norberto Leyva MD [facility] - In-person encounter Office Visit Norberto Leyva MD [facility] - In-person encounter Office Visit Norberto Leyva MD [facility] PVC's - In-person encounter Office Visit Norberto Leyva MD [facility] - In-person encounter Office Visit Norberto Leyva MD [facility] - In-person encounter Office Visit Norberto Leyva MD [facility] Hypercholesterolemia, mixedHYPOTHYROIDISMSHORTNESS OF BREATH VITAL SIGNS Date Observation Value Provider Body Mass Index (Ratio) 28.73 kg/m2 Asael Ferreira blood pressure, diastolic 75 mm[Hg] Murray Mcdonough blood pressure, systolic 132 mm[Hg] Jeannine Mcdonough oxygen saturation, oximetry 95 % Medina Mcdonough respiratory rate E&M 18 /min Jagdeep Mcdonough pulse rate 97 /min Medina mehta weight E&M 167.4 [lb_av] Medina bryant height E&M 64 [in_i] Medina mehat Body Mass Index (Ratio) 28.83 kg/m2 Asael Ferreira blood pressure, cuff size regular Ke rri Caesaryohanacatherineelizabethchrist[facility] blood pressure, diastolic 77 mm[Hg] Ke rri [facility]st [facility], systolic 127 mm[Hg] Dee ri [facility]st [facility] oxygen saturation, oximetry 96 % Cori Omid respiratory rate E&M 18 /min Cori davis pulse rate 83 /min Cori Pramod [facility] weight E&M 168 [lb_av] Cori Rodrigueze er height E&M 64 [in_i] Cori Rodrigueze er Body Mass Index (Ratio) 28.49 kg/m2 Asael Ferreira blood pressure, resting Yes Asael lobato [facility] blood pressure, diastolic 80 mm[Hg] Da luz Janice blood pressure, systolic 142 mm[Hg] Dac ia Janice oxygen saturation, oximetry 97 % Marcela Janice respiratory rate E&M 16 /min Marcela V oss pulse rate 71 /min Marcela Janice weight E&M 166 [lb_av] Marcela Janice height E&M 64 [in_i] Marcela Janice Body Mass Index (Ratio) 28.66 kg/m2 Kai Zhang blood pressure, resting No Scooby ryan Orellana blood pressure, cuff size regular Jarod navarrete Orellana blood pressure, diastolic 82 mm[Hg] [facility] blood [facility], systolic 139 mm[Hg] [facility] oxygen saturation, oximetry 96 % [facility] respiratory rate E&M 14 /min [facility] pulse rate 77 /min [facility] weight E&M 167 [lb_av] [facility] height E&M 64 [in_i] [facility] Body Mass Index (Ratio) 27.98 kg/m2 Anea ivette [facility] blood pressure, diastolic, left arm 78 mm [Hg] Aneatris [facility] blood pressure, systolic, left arm 118 mm [Hg] Aneatris [facility] blood pressure, diastolic, right arm 82 m m[Hg] Aneatris [facility] blood pressure, systolic, right arm 134 m m[Hg] Aneatris [facility] blood pressure, diastolic 78 mm[Hg] An eatris [facility] blood pressure, systolic 118 mm[Hg] Ane atris [facility] pulse rate 80 /min [facility], oximetry 96 % Nohemiatris [facility] respiratory rate E&M 18 /min Aneatri s [facility] weight E&M 163 [lb_av] Nohemiatropal [facility] Body Mass Index (Ratio) 27.56 kg/m2 Zaheer Nichole blood pressure, diastolic, left arm 77 mm [Hg] Robbie Nichole blood pressure, systolic, left arm 127 mm [Hg] Robbie Nichole blood pressure, diastolic, right arm 84 m m[Hg] Robbie Nichole blood pressure, systolic, right arm 131 m m[Hg] Robbie Nichole blood pressure, diastolic 77 mm[Hg] Ayoub blood pressure, systolic 127 mm[Hg] Jian Nichole pulse rate 75 /min Robbie Nichole oxygen saturation, oximetry 97 % Robbie Nichole respiratory rate E&M 16 /min Jianaide Nichole weight E&M 160 [lb_av] [facility] Body Mass Index (Ratio) 27.25 kg/m2 Clyde ar [facility] blood pressure, diastolic, left arm 86 mm [Hg] [facility] blood pressure, systolic, left arm 126 mm [Hg] [facility] blood pressure, diastolic, right arm 72 m m[Hg] [facility] blood pressure, systolic, right arm 124 m m[Hg] [facility] blood pressure, diastolic 72 mm[Hg] [facility] blood pressure, systolic 124 mm[Hg] Osbaldo [facility] pulse rate 85 /min [facility] oxygen saturation, oximetry 97 % [facility] respiratory rate E&M 16 /min [facility] weight E&M 158.2 [lb_av] [facility] height E&M 64 [in_i] [facility] blood pressure, diastolic, left arm 88 mm [Hg] Magen Ignacio RN blood pressure, systolic, left arm 140 mm [Hg] Magen Ignacio RN blood pressure, diastolic, right arm 88 m m[Hg] Magen Ignacio RN blood pressure, systolic, right arm 133 m m[Hg] Magen Ignacio RN blood pressure, diastolic 88 mm[Hg] Graham Ignacio RN blood pressure, systolic 140 mm[Hg] Magen Ignacio RN pulse rate 97 /min Magen Ignacio RN oxygen saturation, oximetry 97 % Magen Ignacio RN respiratory rate E&M 16 /min Magen combs RN weight E&M 161 [lb_av] Magen Ignacio RN blood pressure, diastolic 84 mm[Hg] Estevan Hopsoner blood pressure, systolic 120 mm[Hg] Dee gaxiola Omid pulse rate 73 /min Cori Pramod menon oxygen saturation, oximetry 99 % Croi Omid respiratory rate E&M 16 /min Cori Be susan weight E&M 161.6 [lb_av] Cori Caesaryohanajuan alfonso blood pressure, diastolic 91 mm[Hg] He ather Blunt blood pressure, systolic 130 mm[Hg] Hea ther Blunt pulse rate 80 /min Cristiana Blunt oxygen saturation, oximetry 97 % Cristiana Blunt respiratory rate E&M 16 /min Cristiana Blunt weight E&M 173 [lb_av] Cristiana Blunt blood pressure, diastolic, left arm 79 mm [Hg] Magen Ignacio RN blood pressure, systolic, left arm 122 mm [Hg] Magen Ignacio RN blood pressure, diastolic, right arm 84 m m[Hg] Magen Ignacio RN blood pressure, systolic, right arm 128 m m[Hg] Magen Ignacio RN blood pressure, diastolic 79 mm[Hg] Graham Ignacio RN blood pressure, systolic 122 mm[Hg] Magen Ignacio RN pulse rate 85 /min Magen Ignacio RN oxygen saturation, oximetry 99 % Magen Ignacio RN respiratory rate E&M 16 /min Magen combs RN weight E&M 181 [lb_av] Magen Ignacio RN blood pressure, diastolic, left arm 87 mm [Hg] Talisha O'Rico blood pressure, systolic, left arm 139 mm [Hg] Talisha O'Rico blood pressure, diastolic, right arm 85 m m[Hg] Talisha O'Rico blood pressure, systolic, right arm 140 m m[Hg] Talisha O'Rico blood pressure, diastolic 87 mm[Hg] Murray EsparzaRico blood pressure, systolic 139 mm[Hg] Jeannine EsparzaRico pulse rate 75 /min Talisha O'Rico oxygen saturation, oximetry 99 % Talisha EsparzaRico respiratory rate E&M 16 /min Talisha EsparzaRico weight E&M 178 [lb_av] Talisha O'Rico blood pressure, diastolic, left arm 781 m m[Hg] Za BarrettTom blood pressure, systolic, left arm 121 mm [Hg] Za BarrettTom blood pressure, diastolic, right arm 80 m m[Hg] Za BarrettTom blood pressure, systolic, right arm 122 m m[Hg] Za BarrettTom blood pressure, diastolic 78 mm[Hg] Ca tk Gaomann blood pressure, systolic 121 mm[Hg] Car larry BarrettTom pulse rate 84 /min Za [facility] oxygen saturation, oximetry 97 % Za [facility] respiratory rate E&M 16 /min Za fung weight E&M 192 [lb_av] Za [facility] blood pressure, diastolic, left arm 92 mm [Hg] [facility] blood pressure, systolic, left arm 128 mm [Hg] [facility] blood pressure, diastolic, right arm 81 m m[Hg] Davonte [place] blood pressure, systolic, right arm 125 m m[Hg] Davonte [place] blood pressure, diastolic 81 mm[Hg] Genevieve garza [place] blood pressure, systolic 125 mm[Hg] Osbaldo valdez [facility] pulse rate 90 /min [facility] oxygen saturation, oximetry 96 % [facility] respiratory rate E&M 16 /min Davonte [facility] weight E&M 207 [lb_av] [facility] blood pressure, diastolic, left arm 94 mm [Hg] Magen Ignacio RN blood pressure, systolic, left arm 157 mm [Hg] Magen Ignacio RN blood pressure, diastolic, right arm 85 m m[Hg] Magen Ignacio RN blood pressure, systolic, right arm 159 m m[Hg] [employer] Ignacio RN blood pressure, diastolic 85 mm[Hg] Graham Ignacio RN blood pressure, systolic 159 mm[Hg] Magen Ignacio RN pulse rate 96 /min Magen Ignacio RN oxygen saturation, oximetry 120 % Magen Ignacio RN respiratory rate E&M 20 /min Magen combs RN weight E&M 209 [lb_av] Magen Ignacio RN ALLERGIES Allergy Name Onset Date Reaction Criticality Status CRESTOR trouble sleeping , upper abd pain, mood swings Low Criticality active LIPITOR muscle aches Low Criticality active RESULTS Date Observation Value Provider Reference Range Interpretation Location LDL cholesterol, serum 88 mg/dL Norberto Leyva MD platelet count 236 10*3/uL [facility] red blood cell distribution width 13.0 % [facility] mean corpuscular hemoglobin concentration, RBC 33.2 g/dL [facility] mean corpuscular hemoglobin, RBC 30.8 pg [facility] mean corpuscular volume, RBC 92.9 fL [facility] hematocrit, blood 39.2 % [facility] hemoglobin, blood 13.0 g/dL [facility] erythrocyte (RBC) count 4.22 10*6/mm3 [facility] leukocyte count, blood 5.3 10*3/mm3 [facility] protein, total, serum 7.9 g/dL [facility] albumin, serum 4.2 g/dL [facility] bilirubin, serum, total 0.70 mg/dL [facility] alkaline phosphatase, serum 84 1/L [facility] alanine aminotransferase (SGPT), serum 35 1/L [facility] aspartate aminotransferase (SGOT), serum 24 1/L [facility] calcium, serum 9.0 mg/dL [facility] blood glucose, random 140 mg/dL [facility] creatinine, serum 0.78 mg/dL [facility] urea nitrogen, blood 22 mg/dL [facility] carbon dioxide, serum, total 26 mmol/L [facility] chloride, serum 106 mmol/L [facility] potassium, serum 3.7 mmol/L [facility] sodium, serum 143 mmol/L [facility] LDL cholesterol, serum 73 mg/dL [facility] LDL cholesterol, serum 157 mg/dL [facility] cholesterol, serum 248 mg/dL [facility] lipoprotein, beta, serum, point, quantitative, calculated 215 mg/dL [facility] cholesterol, serum 312 mg/dL [facility] thyroid stimulating hormone, serum 1.300 u[IU]/mL [facility] platelet count 266 10*3/mm3 [facility] hematocrit, blood 43.5 % [facility] alanine aminotransferase (SGPT), serum 22 1/L [facility] aspartate aminotransferase (SGOT), serum 25 1/L [facility] creatinine, serum 0.85 mg/dL [facility] potassium, serum 4.4 mmol/L [facility] sodium, serum 141 mmol/L [facility] c-reactive protein, quantitative, serum 1.0 mg/L [facility] 0.0-4.9 LDL Size 20.6 nm [facility] > 20.5 Small Low Density Lipoprotein Particle 1438 nmol/L [facility] <= 527 High cholesterol, serum 257 mg/dL [facility] <200 High triglyceride, serum, fasting 128 mg/dL [facility] <150 Total HDL-cholesterol direct 54 mg/dL [facility] >=40 Total LDL-cholesterol direct 177 mg/dL [facility] <100 High LDL-P (low density lipoprotein particle) 2901 [facility] <1000 High LDL/HDL ratio, serum 2.4 [facility] triglyceride, serum, fasting 220 mg/dL [facility] HDL cholesterol, serum 50 mg/dL [facility] LDL cholesterol, serum 118 mg/dL [facility] cholesterol, serum 212 mg/dL [facility] platelet count 267 10*3/uL [facility] red blood cell distribution width 12.8 % [facility] mean corpuscular hemoglobin concentration, RBC 32.8 g/dL [facility] mean corpuscular hemoglobin, RBC 31.1 pg [facility] mean corpuscular volume, RBC 95 fL [facility] hematocrit, blood 40.9 % [facility] hemoglobin, blood 13.4 g/dL [facility] erythrocyte (RBC) count 4.31 10*6/mm3 [facility] monocyte count, blood 0.3 10*3/mm3 [facility] lymphocyte count, blood 1.3 10*3/mm3 [facility] monocytes as percent of blood leukocytes 7 % [facility] lymphocytes as percent of blood leukocytes 33 % [facility] leukocyte count, blood 3.9 10*3/mm3 [facility] vitamin D 25-hydroxy, serum 30 ng/mL [facility] albumin/globulin ratio, serum 1.1 [facility] protein, total, serum 8.1 g/dL [facility] albumin, serum 4.3 g/dL [facility] bilirubin, serum, total 0.3 mg/dL [facility] alkaline phosphatase, serum 73 1/L [facility] alanine aminotransferase (SGPT), serum 19 1/L [facility] aspartate aminotransferase (SGOT), serum 22 1/L [facility] calcium, serum 9.5 mg/dL [facility] blood glucose, fasting 79 mg/dL [facility] creatinine, serum 0.77 mg/dL [facility] urea nitrogen, blood 18 mg/dL [facility] carbon dioxide, serum, total 25 mmol/L [facility] chloride, serum 103 mmol/L [facility] potassium, serum 4.2 mmol/L [facility] sodium, serum 139 mmol/L [facility] globulins, serum, total 3.9 g/dL [facility] B-12, serum 302 pg/mL [facility] folate, serum 9.7 ng/mL [facility] thyroxine, serum, free 1.08 ng/dL [facility] thyroid stimulating hormone, serum 1.800 u[IU]/mL [facility] Estimated Glomerular Filtration Rate (calc) >59 [facility] thyroid stimulating hormone, serum 1.115 u[IU]/mL [facility] cholesterol/HDL ratio, serum 3.7 [facility] triglyceride, serum, fasting 137 mg/dL [facility] HDL cholesterol, serum 46 mg/dL [facility] LDL cholesterol, serum 86 mg/dL [facility] cholesterol, serum 170 mg/dL [facility] globulins, serum, total 4.3 g/dL [facility] estimated glomerular filtration rate 77.5 mL/min [facility] albumin/globulin ratio, serum 0.8 [facility] protein, total, serum 7.9 g/dL [facility] albumin, serum 3.8 g/dL [facility] bilirubin, serum, total 0.3 mg/dL [facility] alkaline phosphatase, serum 62 1/L [facility] alanine aminotransferase (SGPT), serum 20 1/L [facility] aspartate aminotransferase (SGOT), serum 22 1/L [facility] calcium, serum 10.0 mg/dL [facility] blood glucose, fasting 82 mg/dL [facility] creatinine, serum 0.8 mg/dL [facility] urea nitrogen, blood 18 mg/dL [facility] carbon dioxide, serum, total 32 mmol/L [facility] chloride, serum 107 mmol/L [facility] potassium, serum 4.4 mmol/L [facility] sodium, serum 144 mmol/L [facility] platelet count 271 10*3/uL [facility] red blood cell distribution width 14.5 % [facility] mean corpuscular hemoglobin concentration, RBC 33.7 g/dL [facility] mean corpuscular hemoglobin, RBC 31.6 pg [facility] mean corpuscular volume, RBC 93.9 fL [facility] hematocrit, blood 38.9 % [facility] hemoglobin, blood 13.1 g/dL [facility] erythrocyte (RBC) count 4.1 10*6/mm3 [facility] neutrophils, segmented as percent of blood leukocytes 2.6 % [facility] monocyte count, blood 0.2 10*3/mm3 [facility] lymphocyte count, blood 1.2 10*3/mm3 [facility] neutrophils as percent of blood leukocytes 65.5 % [facility] monocytes as percent of blood leukocytes 4.6 % [facility] lymphocytes as percent of blood leukocytes 29.9 % [facility] leukocyte count, blood 3.9 10*3/mm3 [facility] platelet count 329 10*3/uL [facility] red blood cell distribution width 15.8 % [facility] mean corpuscular hemoglobin concentration, RBC 33.2 g/dL [facility] mean corpuscular hemoglobin, RBC 28.6 pg [facility] mean corpuscular volume, RBC 86 fL [facility] hematocrit, blood 35.1 % [facility] hemoglobin, blood 11.6 g/dL [facility] erythrocyte (RBC) count 4.06 10*6/mm3 [facility] monocyte count, blood 0.3 10*3/mm3 [facility] lymphocyte count, blood 1.6 10*3/mm3 [facility] monocytes as percent of blood leukocytes 5 % [facility] lymphocytes as percent of blood leukocytes 28 % [facility] leukocyte count, blood 5.6 10*3/mm3 [facility] albumin/globulin ratio, serum 0.6 [facility] protein, total, serum 8.0 g/dL [facility] albumin, serum 3.1 g/dL [facility] bilirubin, serum, total 0.20 mg/dL [facility] alkaline phosphatase, serum 87 1/L [facility] alanine aminotransferase (SGPT), serum 36 1/L [facility] aspartate aminotransferase (SGOT), serum 20 1/L [facility] calcium, serum 9.0 mg/dL [facility] blood glucose, fasting 92 mg/dL [facility] creatinine, serum 1.02 mg/dL [facility] urea nitrogen, blood 14 mg/dL [facility] carbon dioxide, serum, total 33 mmol/L [facility] chloride, serum 106 mmol/L [facility] potassium, serum 4.6 mmol/L [facility] sodium, serum 139 mmol/L [facility] triglyceride, serum, fasting 183 mg/dL [facility] HDL cholesterol, serum 38 mg/dL [facility] LDL cholesterol, serum 101 mg/dL [facility] cholesterol, serum 176 mg/dL [facility] thyroid stimulating hormone, serum 1.41 u[IU]/mL [facility] platelet count 267 10*3/uL [facility] red blood cell distribution width 14.3 % [facility] mean corpuscular hemoglobin concentration, RBC 30.5 g/dL [facility] mean corpuscular hemoglobin, RBC 28.5 pg [facility] mean corpuscular volume, RBC 93.3 fL [facility] hematocrit, blood 39.3 % [facility] hemoglobin, blood 12.0 g/dL [facility] erythrocyte (RBC) count 4.21 10*6/mm3 [facility] monocytes as percent of blood leukocytes 8.7 % [facility] lymphocytes as percent of blood leukocytes 31.0 % [facility] leukocyte count, blood 5.1 10*3/mm3 [facility] HISTORY OF MEDICATION USE Medication Status Instructions Dates Provider Indications Com ments ASPIRIN ADULT LOW DOSE 81 MG ORAL TABLET DELAYED RELEASE active One Tab By Mouth Daily Norberto Leyva MD XARELTO 20 MG ORAL TABLET completed One tablet daily with evening meal - Medina Mcdonough XARELTO 15 MG ORAL TABLET completed One tablet twice daily for 21 days - Cori Anne CALCIUM 600 MG ORAL TABLET active take as directed Aneatris Brown ZINC 50 MG ORAL TABLET completed 1 tab daily - Janina Orellana MAGNESIUM 500 MG ORAL CAPSULE active 1 tab daily Aneatropal Briscoe VITAMIN B-12 1000 MCG ORAL TABLET completed One tablet daily - Janina Orellana ATORVASTATIN CALCIUM 40 MG ORAL TABLET active 1 tab daily Anesonia Briscoe VITAMIN E-400 CAPSULE completed 1 tab daily - Cori Anne VITAMIN C 1000 MG ORAL TABLET completed 1 tab daily - Cori Anne FISH OIL 1200 MG ORAL CAPSULE completed 1 tab daily - Aneatris Luis Felipe ZOLOFT 50 MG ORAL TABLET active 1 tab daily Robbie Nichole RED YEAST RICE TABLET completed 300mg daily - Aneatris Luis Felipe CRESTOR 5 MG ORAL TABLET completed ONE TAB DAILY - Davonte Manphanip VIACTIVE 500MG completed daily - Aneatris Luis Felipe HM FISH OIL CAPSULE DELAYED RELEASE completed take one pill a day - Magen Ignacio RN WELLBUTRIN 100 MG ORAL TABLET completed take one pill twice a day - Robbie Nichole ZETIA 10 MG ORAL TABLET completed one daily - Aneatropal Briscoe CALCIUM CARBONATE 600 MG ORAL TABLET completed Two tabs daily - Davonte Manacop B-12 TABS completed 1 tab by mouth daily - Robbie Nichole VITAMIN E 400 UNIT ORAL CAPSULE completed ONE TAB. DAILY - Cori Anne VITAMIN D 2000 UNIT ORAL TABLET active 1/2 tablet by mouth daily Magen Ignacio RN PER MED LIST NITROGLYCERIN 0.4 MG SUBLINGUAL TABLET SUBLINGUAL active use as directed. Norberto Leyva MD FERROUS SULFATE 325 (65 Fe) MG ORAL TABLET completed 1 tablet by mouth daily - Talisha Sharma'Rico PLAVIX 75 MG ORAL TABLET completed DAILY - Norberto Leyva MD LOPRESSOR TABS 25MG (METOPROLOL TARTRATE TABS) completed TWICE DAILY - Za Santos METAMUCIL CAPSULE completed 1 capsule by mouth daily - Za Santos [facility] VITAMIN D TABS completed 100mg daily - Davonte Manacop VITAMIN E 400 UNIT ORAL CAPSULE completed ONE TAB. DAILY - Davonte Man[place]op COLACE 100 MG ORAL CAPSULE completed 1 capsule by mouth daily - Talisha O'Rico CALTRATE 600+D TABLET completed 1 tablet by mouth daily - Talisha O'Rico COMBIVENT 18-103 MCG/ACT INHALATION AEROSOL completed 2 puffs 4 x daily as needed - Davonte Manacop ASPIRIN 81 MG ORAL TABLET completed ONE TAB. DAILY - Robbie Nichole SYNTHROID 50 MCG ORAL TABLET active ONE TAB. DAILY Magen Ignacio RN CRESTOR 20 MG ORAL TABLET completed ONE TAB. DAILY - Cori Anne SOCIAL HISTORY Date Observation Value Provider social history reviewed E&M revi ewed - no changes required Wei Ferreira exercise type walking, Wii, ex ercise bands Medina Mcdonough physical exercise, f requency, days per week 7 /wk Medina Mcdonough alcohol use, average drinks per day none Medina Mcdonough alcohol use no Medina Johnson tyson caffeine use, averag e drinks per day 0 /d Medina Gómezenson drug use none Medina Johnson martybree passive cigarette sm stefan exposure yes Medina Mcdonough smoking, year quit 2006 Medina Mcdonough number of years as a smoker 10+ Medina Mcdonough cigarette use yes Medina Gómez manny smoking status Former smoker Medina St seals quit smoking, stage quit Norberto quiroz MD social history reviewed E&M i ewed - no changes required Norberto Leyva MD exercise type walking, Wii, ex ercise bands Cori Anne physical exercise, f requency, days per week 7 /wk Cori Anne alcohol use, average drinks per day none Cori Anne alcohol use no Cori Benavidez [facility] caffeine use, averag e drinks per day 0 /d Cori Anne drug use none Cori Benavidez sinan passive cigarette sm stefan exposure yes Cori Friasyumikocherie smoking, year quit 2006 Cori Maynardnoel swain number of years as a smoker 10+ Nobrerto Leyva MD cigarette use yes Cori alfonso smoking status Former smoker Cori johnsonkaden number of years as a smoker 10+ years [facility] smoking, year quit 2006 [facility] cigarette use yes [facility] social history reviewed E&M revi ewed - no changes required [facility] social history E&M Marital Statu s: Rayray [place] with family/friends E thnicity: Smoking History: Jesus Alberto parekh is a former smoker. [facility] exercise type walking, Wii, ex ercise bands [facility] physical exercise, f requency, days per week 7 /wk [facility] alcohol use, average drinks per day none [facility] alcohol use no [facility] caffeine use, averag e drinks per day 0 /d [facility] drug use none [facility] passive cigarette sm stefan exposure yes [facility] smoking status Former smoker Norberto Leyva MD social history reviewed E&M revi ewed - no changes required Norberto Leyva MD number of grandchildren Norberto Orellana smoking status Former smoker Janina Orellana smoking/tobacco cess ation, patient education and counseling yes Norberto Leyva MD exercise type walking, Wii, ex ercise bands Norberto Leyva MD physical exercise, f requency, days per week 7 /wk Norberto Leyva MD alcohol use, average drinks per day none Norberto Leyva MD caffeine use, averag e drinks per day no Norberto Leyva MD drug use none Norberto Leyva MD passive cigarette sm stefan exposure yes Norberto Leyva MD smoking status Former smoker Norberto Leyva MD social history reviewed E&M revi ewed - no changes required Norberto Leyva MD social history reviewed E&M reviewed Magen Ignacio RN social history reviewed E&M reviewed Magen Ignacio RN physical exercise, f requency, days per week 7 /wk Davonte Delcid exercise type walking, Wii, ex ercise bands Davonte Delcid drug use none Norberto Leyva MD passive cigarette sm stefan exposure yes Davonte Katzacojesus alberto smoking history, tot al pack/year [id number] Davonte Manacojesus alberto smoking, year quit 2006 Davonte [place] smoking status former smoker Davonte day social history reviewed E&M reviewed Magen Ignacio RN social history reviewed E&M reviewed Magen Ignacio RN social history reviewed E&M reviewed Cristiana Arcos social history reviewed E&M reviewed Magen Ignacio RN social history reviewed E&M reviewed Magen Ignacio RN social history reviewed E&M reviewed oNrberto Leyva MD social history reviewed E&M reviewed Magen Ignacio RN social history E&M Marital Statu s: L gene with family/friends E thnicity: Magen Ignacio RN social history reviewed E&M reviewed Magen Ignacio RN caffeine use, averag e drinks per day no [employer] alcohol use, average drinks per day none [employer] number of years as a smoker 10 years or m ore [employer] smoking status Quit [employer] FUNCTIONAL STATUS Date Observation Value Provider HRA, CV Assess/Plan, Angina (inactive) Management Plan continue current therapy Norberto Leyva MD HRA, CV Assess/Plan, Angina (inactive) Management Plan continue current therapy Norberto Leyva MD HRA, CV Assess/Plan, Angina (inactive) Management Plan continue current therapy Norberto Leyva MD HRA, CV Assess/Plan, Angina (inactive) Management Plan continue current therapy Kerrie Zhang MENTAL STATUS Date Observation Value Provider assessment of judgme nt and insight E&M Alert and oriented to time, place and person. Mood and affect are normal. Magen Ignacio RN assessment of judgme nt and insight E&M Alert and oriented to time, place and person. Mood and affect are normal. Magen Ignacio RN assessment of judgme nt and insight E&M Alert and oriented to time, place and person. Mood and affect are normal. Magen Ignacio RN assessment of judgme nt and insight E&M Alert and oriented to time, place and person. Mood and affect are normal. Magen Ignacio RN assessment of judgme nt and insight E&M Alert and oriented to time, place and person. Mood and affect are normal. Cristiana Isrrael assessment of judgme nt and insight E&M Alert and oriented to time, place and person. Mood and affect are normal. Magen Ignacio RN assessment of judgme nt and insight E&M Alert and oriented to time, place and person. Mood and affect are normal. Magen Ignacio RN assessment of judgme nt and insight E&M Alert and oriented to time, place and person. Mood and affect are normal. Norberto Leyva MD assessment of judgme nt and insight E&M Alert and oriented to time, place and person. Mood and affect are normal. Magen Ignacio RN assessment of judgme nt and insight E&M Alert and oriented to time, place and person. Mood and affect are normal. Magen Ignacio RN FAMILY HISTORY Family Member Condition Mother Family History of Pressley dden Cardiac : Father Family History of CV A or Stroke: Father Family History of Ot her Cancer Mother Family History of Hy pertension: Mother Family History of Di abetes: INSURANCE PROVIDERS Payer name Policy type / Coverage type Yesenia garcia ID [employer] Medicare [id number] [facility] [id number] Other [id number] ADVANCE DIRECTIVES Name Date DISCUSSED - NO DECISION MADE TREATMENT PLAN Date Name Performer Cardiology:Labs in [place] and[place] showed 162 total cholesterol, 126 triglycerides, 49 HDL, 88 LDL. She does not want to increase her Lipitor dose. Her updated medication list for this problem includes: Atorvastatin Calcium 40 Mg Oral Tablet (Atorvastatin calcium) ..... 1 tab daily Wei Ferreira Cardiology:BP today: 132/75 P rior BP: 127/77 (04/02/2017) Wei Ferreira Cardiology:Her updat ed medication list for this problem includes: Aspirin Adult Low Dose 81 Mg Oral Tablet Delayed Release (Aspirin) ..... One tab by mouth daily Nitroglycerin 0.4 Mg Sublingual Tablet Sublingual (Nitroglycerin) ..... Use as directed. Wei Ferreira Cardiology:Clear from cardiology perspective. Wei Ferreira Cardiology Follow up :BP today: 127/77 P rior BP: 142/80 (01/08/2017) Wei Ferreira Cardiology Follow up :No chest pain or SOB. Her updated medication list for this problem includes: Nitroglycerin 0.4 Mg Subl (Nitroglycerin) ..... Use as directed. Wei Ferreira Cardiology Follow up:No recurren ce. Wei Hanna Cardiology Follow up :Pt is feeling much better. CT of the chest was negative for PE. Will obtain f/u venous duplex to see if DVT has resolved. Wei Ferreira Cardiology:Hgb: 13.0 (12/28/2016) HCT: 39.2 (12/28/2016) Wei Ferreira Cardiology:Her updat ed medication list for this problem includes: Synthroid 50 Mcg Tabs (Levothyroxine sodium) ..... One tab. daily [facility] Cardiology:LDL: 73 ( 12/28/2016) Her updated medication list for this problem includes: Atorvastatin Calcium 40 Mg Tabs (Atorvastatin calcium) ..... 1 tab daily [facility] Cardiology:BP today: 142/80 P rior BP: 139/82 (12/11/2016) [facility] Cardiology:Myoview s can was normal. The following medications were removed from the medication list: Plavix 75 Mg Tabs (Clopidogrel bisulfate) ..... Daily Her updated medication list for this problem includes: Nitroglycerin 0.4 Mg Subl (Nitroglycerin) ..... Use as directed. [facility] Cardiology:Duplex to day shows acute DVT of the R popliteal vein and bilateral venous insufficiency. [facility] Cardiology:The pt johnson d a recent admission for chest pain. MD was ruled out and she was released. Myoview scan was normal. Duplex today shows acute DVT of the R popliteal vein. Will obtain CT to assess for possible pulmonary embolism. [facility] Cardiology:Duplex to day shows acute DVT of the R popliteal vein and bilateral venous insufficiency. Will start Xarelto 15mg BID for 3 weeks followed by 20mg daily. [facility] Cardiology:Echo reordered. Emeterio teresa Zhang Cardiology:Patient h as varicose veins and notes pain and heaviness in her legs as well as peripheral edema, worse in the left than in the right. She also notes frequent warmth in the right leg. Compression stockings did not markedly improve her symptoms. Ordered bilateral venous and arterial dopplers. Kerrie Zhang Follow-up s/p Stenti ng: H er updated medication list for this problem includes: Plavix 75 Mg Tabs (Clopidogrel bisulfate) ..... Daily Aspirin 325 Mg Tabs (Aspirin) ..... 1 tablet by mouth daily Crestor 10 Mg Tabs (Rosuvastatin calcium) ..... One tab. daily Nitroglycerin 0.4 Mg Subl (Nitroglycerin) ..... Use as directed. BP today: 125/81 Prior BP: 159/85 (04/17/2009) N uclear Stress Findings: Had 0.9 - 1 .I mm upsloping St Segment depression in the Inferior leads and 1.[address] Segment depression in the lateral leads. An upsloping St Depression Greater than -1.0m m and less than 2.0 mm is considered to be Borderline for Ischemia. No scintigraphic evidence of stress induced ischemia or wall motlon abnormality. Left ventricular ejection fraction is 79% which is within normal limits. [facility] (06/23/2008) C ardiac Cath: Severe coronary artery disease with 90% of the mid left anterior descending, 70 to 80% stenosis of the proximal right femoral artery and 80% stenosis of the lower division of the obtuse marginal branch. Moderate disease of the mid to distal left anterior descending with 40 to 50% stenosis. Normal ejection fraction 70%. [facility] (05/01/2009) C ardiac Cath Comments: Vasovagal reaction at the beginning of the procedure and successful slenting of the mid LAD with a 2.5 x 30 mm Vision stent. Successful closure of the right groin using a 6-[place] Angio-Seal closure device. [facility] (05/01/2009) C HOL: 176 (01/02/2009) LDL: 101 (01/02/2009) HDL: 38 (01/02/2009) T (01/02/2009) H gb: 11.6 (03/28/2009) HCT: 35.1 (03/28/2009) RBC: 4.06 (03/28/2009) WBC: 5.6 (03/28/2009) B UN: 14 (01/02/2009) Creat: 1.02 (01/02/2009) Glucose: 92 (01/02/2009) N a+: 139 (01/02/2009) K+: 4.6 (01/02/2009) Cl: 106 (01/02/2009) TSH: 1.41 (01/02/2009) O rders: C arotid Duplex Bilateral (CPT-80100) Norberto Leyva MD Follow-up s/p Stenti ng: H er updated medication list for this problem includes: Aspirin 325 Mg Tabs (Aspirin) ..... 1 tablet by mouth daily BP today: 125/81 P rior BP: 159/85 (04/17/2009) Labs Reviewed: C reat: 1.02 (01/02/2009) C hol: 176 (01/02/2009) HDL: 38 (01/02/2009) LDL: 101 (01/02/2009) T (01/02/2009) Norberto Leyva MD cp-sob on exertion: H er updated medication list for this problem includes: Aspirin 81 Mg Tabs (Aspirin) ..... One tab. daily BP today: 159/85 Prior BP: / () Orders: E KG (CPT-83600) Norberto Leyva MD cp-sob on exertion: H er updated medication list for this problem includes: Aspirin 81 Mg Tabs (Aspirin) ..... One tab. daily [facility] Calcium 600 + D/minerals Tabs (Calcium carbonate-vit d-min tabs) ..... One tab twice daily BP today: 159/85 Prior BP: / () Orders: C omplete Echo (CPT-05668) C ardiac Cath - GC (*) Norberto Leyva MD Date Name [facility] Venous Doppler Bilat eral LE CT Chest r/o PE Arterial Duplex Bi-L ower EX Venous Doppler Bilat eral LE - Reflux Complete Echo C-REACTIVE PROTEIN NMR LipoProfile Gallbladder Ultrasou nd Complete Echo Holter Monitor 24 Hr Complete Echo LIPID PANEL Carotid Duplex Bilat eral Cardiac Cath - GC Complete Echo HISTORY OF PROCEDURES Procedure Date Procedure Name Provider Procedure Notes S tatus EKG Norberto Leyva MD completed SNOMED-CT: 246301499 [id number] Current Medications Documented Norberto Leyva MD completed SNOMED-CT: [id number] [id number] Current Medications Documented Norberto Leyva MD completed Stress EKG Irina Baird MD complet ed Cardiolite, 2 units Norberto Leyva MD c ompleted SPECT Images Irina Baird MD compl eted EKG Norberto Leyva MD completed SNOMED-CT: [id number] Current Medications Documented Norberto Leyva MD completed EKG Norberto Leyva MD completed EKG Norberto Leyva MD completed ePrescribe - Check t his box if eRx is used Norberto Leyva MD completed EKG Norberto Leyva MD completed EKG Norberto Leyva MD completed EKG Norberto Leyva MD completed EKG Magen Ignacio RN completed
--- OUTSIDE RECORDS SUMMARY | 2024-10-16 12:31 | XMS_ITS | Clinical Summary ---
Author Organization [facility] Address [address] [place] [address] Care Team Providers Care Intern Architect Name Role Phone Americo Tomlin MD Primary Care Provider [phone] Allergies Active Allergy Reactions Criticality Noted Date [...] 1 tablet (25 mcg total) by mouth director loan before breakfast Active sertraline (ZOLOFT) 100 mg [...] (07/10/2018): Added automatically from request for surgery [id number] Depression 07/10/2018 Anxiety 07/10/2018 CAD (coronary artery disease) 07/10/2018 Hypothyroidism 07/10/2018 Medical History Medical History Date Comments Smoking history Coronary artery disease Social History Tobacco Use Types Packs/Day Years Used Date Smoking Tobacco: Former Cigarettes Q uit: 12/20/2006 Smokeless Tobacco: Never Tobacco Cessation:Counseling Given: Not Answered Alcohol Use Standard Drinks/Week Comments No 0 (1 standard drink = 0.6 oz pur e alcohol) Comments No Sex and Gender Information Value Date Recorded Sex Assigned at Not on file 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 Gender Identity Not on file Sexual Orientation Not on file Obstetrics History Last Filed Vital Signs Vital Sign Reading Time Taken Comments Blood Pressure 120/76 02/24/2024 9:13 AM CDT Pulse 71 02/24/2024 9:13 AM CDT Temperature 37.1 C (98.7 F) 07/27/2018 8:46 AM 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 Respiratory Rate 18 07/13/2018 12:45 PM 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 ANALYST Oxygen Saturation 99% 02/24/2024 9:13 AM CDT Inhaled Oxygen Concentration - - Weight 70.8 kg (156 lb) 02/24/2024 9:13 AM CDT Height 162.6 cm (5' 4 ) 02/24/2024 9:13 AM CDT Body Mass Index 26.78 02/24/2024 9:13 AM CDT Plan of Treatment Health Maintenance Due Date Last Done Comments Depression Screening 1948 Fall Risk Assessment 1950 Hepatitis C Screening 1950 Osteoporosis Screening-Bone Density Scan 1948 Hepatitis B Screening 1966 Zoster Vaccine (1 of 2) 1998 Well Visit 65+ 2013 DTaP/Tdap/Td Vaccine (2 - Tdap) 11/22/2018 9 Influenza Vaccine (#1) 2024 9, 03/24/2018, 04/23/2017, Additional history exists Pneumococcal vaccine 65+ Completed 016, 05/01/2015, 05/02/[address] [place] [address] [place] [address] MEDICARE RAILROAD MEDICARE RAILROAD [facility] MEDICARE RAILROAD [facility] Advance Directives For more information, please contact: [phone] * Full Code (Latest Code Status on File) Date Activated Date Inactivated Comments 07/10/2018 6:52 AM 07/13/2018 5:43 PM Care Teams Intern Architect Relationship Specialty Start Date End Date Americo Tomlin MD PCP - General 07/10/18
--- OUTSIDE RECORDS SUMMARY | 2024-10-16 12:31 | XMS_ITS | Continuity of Care Document ---
Author Organization [facility] [employer] [facility], [facility] Internal Med [facility] Address [address] [place] [address] Care Team Providers Care Stock And Station Agent Name Role Phone ALYSA TOMLIN Primary Care Provider Assessment No assessment recorded. Plan of Treatment Reminders Order Date Submit Date Provider Last Modified By Organization Details Last Modified Time Details Appointments Any 15 2024 10:00A M Alysa Tomlin MD Not available Not available Not available Lab None recorded. Referral None recorded. Procedures None recorded. Surgeries None recorded. Imaging XR, chest, 2 view 2024 025 [email or web address] [facility], [address] [place] [address], [place], [address], 10/15/2024 12:34:59 Medication Orders Zithromax Z-Bobby 250 mg tablet 2024 025 [facility], [address] [facility], [place], [address], 10/15/2024 09:30:54 Airsupra 90 mcg-80 mcg/actua tion HFA aerosol inhaler 2024 025 [email or web address] [facility], [address] [place] [address], [id number], 10/15/2024 09:30:47 Patient TargetsNo targets recorded. Patient Instructions Encounter Date Encounter Id Patient Instructions Last Modified By Organization Details Last Modified Time 10/15/2024 [id number] Continue fluids and take medications as prescribed. Take otc tylenol for fever and body aches. Chest xray ordered, will call with results. Make sure to stay active and continue to stay hydrated. [email or web address] Not available 10/15/2024 09:30:45 Reason for Referral None Reported. Problems Name Problem SNOMED Code Status Onset Date Resolution Date Notes Provider Name and Address Organization Details Recorded Time Venous varices 711218573 Active Not Available [facility] 3 01:13:10 Mammogra phy abnormal 001847721 Completed Not Available [facility] 3 01:13:10 Abdomina l pain 83198612 Completed Not Available [facility] 3 01:13:10 Gastroes ophageal reflux disease 775153554 Active Not Available [facility] 3 01:13:10 Thyroid nodule 339226659 Active 2021 Not Available [facility] 3 01:13:10 Thyroid nodule 321460802 Completed 201711/05/2017 Not Available [facility] 3 01:13:10 Long-ter m drug therapy Completed 202112/14/2021 Not Available [facility] 3 01:13:10 Adult health examinat ion Active 2021 Not Available [facility] 3 01:13:10 Anemia 811452524 Active Not Available [facility] 3 01:13:10 Hypertro phic obesity 261762056 Completed Not Available [facility] 3 01:13:11 Chest pain 62426270 Completed Not Available [facility] 3 01:13:11 Osteopen ia 277549833 Active Not Available [facility] 3 01:13:11 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 636545053 Active 2016 Not Available [facility] 3 01:13:11 Hypothyr oidism 66765675 Active Not Available [facility] 3 01:13:11 Acute urinary tract infectio n 387725126 Completed 202108/19/2022 Lindsey terry, RMMarquise null, [place] [facility] [place] [employer] [facility] 3 08:26:01 Pain of bilatera l knee joints 38148999143 4104 Active 2021 Not Available [facility] 3 01:13:11 Anxiety 53431587 Active Not Available [facility] 3 01:13:12 Coronary arterios clerosis 37275772 Active 2008 s/p stent Not Available [facility] 3 01:13:12 Hyperlip idemia 33762378 Active Not Available [facility] 3 01:13:12 Essentia l hyperten zuhair 48602221 Active Not Available [facility] 3 01:13:12 Allergic rhinitis 34614505 Active 2020 Not Available [facility] 3 01:13:12 Closed fracture of head of radius 32018420 Completed Not Available [facility] 3 01:13:12 Hiatal hernia 48694252 Active 2016 Not Available [facility] 3 01:13:13 Ex-smoke r 1030532 Active stopped in 2006 Not Available [facility] 3 01:13:13 Vitamin D deficien cy 43768242 Active 2022 Alysa Tomlin MD [address], [address], [place], [address] , [facility] [employer] [facility] 3 10:47:32 Eruption 517020486 Active 2022 Alysa Tomlin MD [address], [address], [place], [address] , [facility] [employer] [facility] 3 11:00:13 Dizzines s 686739517 Active 2022 ATUL Aguayo null, [facility] 3 15:17:19 Vertigo 093680745 Active 2022 Alysa Tomlin MD [address], [address], [place], [address] , [facility] [employer] [facility] 3 15:34:41 Muscle pain 06552203 Active 2022 Lindsey terry RMA null, [facility] [place] [facility] 3 17:12:19 Low back pain 091363394 Active 2022 Alysa Tomlin MD [address], [address], [place], [address] , [facility] 3 11:04:47 Knee pain Active 2022 Lindsey terry RMA null, [place] [facility] 3 12:41:38 Chronic back pain 799265946 Active 2022 Lindsey terry RMA null, [place] [facility] 3 12:41:51 Swelling of knee joint 104838517 Active 2024 Alysa Tomlin MD [address], [place], [address] , [facility] [employer] [facility] 5 10:54:12 Bronchit is 78413128 Active 2024 MORALES Singh [address], [address], [place], [address] , [facility] [employer] [facility] 5 09:18:11 Problem Notes None recorded. Procedures Surgical History Date Name Laterality Status Provider Name and Address Organization Details Recorded Time 09/03/19 Medicare Wellness CPT Code, subsequent completed Mabel Case RN [facility] [employer] [facility] 09/03/2023 10:44:57 01/02/20 Medicare Wellness CPT Code, subsequent completed Maura Greer CMA [facility] [employer] [facility] 01/01/2023 10:27:23 08/29/19 23 Medicare Wellness CPT Code, subsequent completed Susanna Powell RN [facility] [employer] [facility] 08/28/2022 10:56:58 01/02/20 Date of Last Mammogram completed Susanna Powell RN [facility] [employer] [facility] 08/28/2022 11:00:02 11/04/19 20 Date of Last Colonoscopy completed Not Available [facility] 08/14/2022 00:59:40 05/27/20 19 Most Recent Bone Density completed Not Available [facility] 08/14/2022 00:59:40 extraction of multiple deciduous teeth completed Not Available [facility] 08/14/2022 00:59:49 [employer] Surgery completed Not Available [facility] 08/14/2022 00:59:49 hernia repair completed Not Available [facility] 08/14/2022 00:59:49 Imaging Results None recorded. Procedure Notes None recorded. Medical Equipment None Reported. Allergies Allergen ID Allergen Name Allergen Category Reaction Reaction Severity Criticality Documentation Date Start Date Code Code System Note Provider Name and Address Organization Details Recorded Time 2516 Crestor medicatio n other Not available Not available 08/14/2022 80554 4 RxNorm Mood hyman e, memted y Not Available [facility] 3 01:30:55 2517 Lipitor medicatio n Not available Not available Not available 08/14/2022 68100 5 RxNorm Not Available [facility] 3 01:30:55 Medications Name Sig Start Date [...] every day by oral route. 09/30 completed ROST For this Script Not Available Not Available [...] prednisol one acetate 1 % eye drops,candy de andaon 03/31 completed Not Available Not Available Not [...] Not Available Not Available Not Available Fluad 2018- 65yr up(PF)45 mcg(15 mcgx3)/0. 5 mL intramusc [...] Updated DateTime 5 160.02 cm 27.1 kg/m2 96770.6 3 g 98.1 [degF] 99 /min 95 % 95 % 118 mm[Hg] 72 mm[Hg] Korin jones [place] [facility] [employer] 5 09:08:16 Social History Question Answer Notes LastModified by Organization Details LastModified Time Tobacco Smoking Status Former Smoker Not Available [facility] 08/14/2022 00:49:40 Do You Have An Advance Directive? No Papers Given Previously [email or web address] Information not available 09/03/2023 What Is Your Level Of Alcohol Consumption? None MIGRATION.0301 131670 Information not available 08/14/2022 Are You Blind Or Do You Have Difficulty Seeing? No MIGRATION.0301 833615 Information not available 08/14/2022 What Is Your Level Of Caffeine Consumption? Occasional MIGRATION.0301 576538 Information not available 08/14/2022 How Much Tobacco Do You Chew? None MIGRATION.0301 811875 Information not available 08/14/2022 Are You Deaf Or Do You Have Serious Difficulty Hearing? No MIGRATION.0301 432729 Information not available 08/14/2022 What Type Of Diet Are You Following? REGULAR MIGRATION.0301 772263 Information not available 08/14/2022 Which Illicit Or Recreational Drugs Have You Used? None MIGRATION.0301 316212 Information not available 08/14/2022 What Is Your Occupation? Retired MIGRATION.0301 288899 Information not available 08/14/2022 Have There Been Any Changes To Your Family Or Social Situation? No MIGRATION.0301 025608 Information not available 08/14/2022 What Is The Fluoride Status Of Your Home? Fluoridated MIGRATION.0301 294338 Information not available 08/14/2022 When Did You Quit Smoking? 16+yearssincelast cigarette [email or web address] Information not available 08/28/2022 Are There Any Guns Present In Your Home? No MIGRATION.0301 906638 Information not available 08/14/2022 Where Do You Live? [facility] MIGRATION.0301 293686 Information not available 08/14/2022 Guns Present In The Home? No [email or web address] Information not available 09/03/2023 Are You Able To Care For Yourself? Yes [email or web address] Information not available 08/28/2022 Are You Blind Or Do Yo Have Difficulty Seeing? No [email or web address] Information not available 08/28/2022 Are You Deaf Or Do You Have Serious Difficulty Hearing? No [email or web address] Information not available 08/28/2022 Live Alone Of With Others? With Others [email or web address] Information not available 09/03/2023 What Was The Date Of Your Most Recent Tobacco Screening? 09/03/2023 [email or web address] Information not available 09/03/2023 What Is Your Current Pack Years? 30ormorepackyears [email or web address] Information not available 08/28/2022 Do You Have Any Pets? No [email or web address] Information not available 09/03/2023 Do You Use Your Seat Belt Or Car Seat Routinely? Yes MIGRATION.0301 667106 Information not available 08/14/2022 Do You Have Smoke And Carbon Monoxide Detectors In Your Home? Yes MIGRATION.0301 129963 Information not available 08/14/2022 At What Age Did You Start Smoking Tobacco? 16 MIGRATION.0301 341696 Information not available 08/14/2022 Are You Passively Exposed To Smoke? No [email or web address] Information not available 09/03/2023 Are There Any Smokers In Your House? No [email or web address] Information not available 09/03/2023 How Much Tobacco Do You Smoke? 2 PPD MIGRATION.0301 350608 Information not available 08/14/2022 Do You Feel Stressed (tense, Restless, Nervous, Or Anxious, Or Unable To Sleep At Night)? OD2229-1 MIGRATION.0301 506757 Information not available 08/14/2022 Do You Use Sunscreen Routinely? No MIGRATION.0301 497036 Information not available 08/14/2022 Have You Recently Traveled Abroad? No [email or web address] Information not available 09/03/2023 Do You Have Any Dietary Restrictions? No [email or web address] Information not available 09/03/2023 Sex: Female Functional Status Question Answer Note LastModified by Organizat ion Details LastModified Time Do you have difficulty walking or climbing stairs? No MIGRATION.4685707 026 Information not available 08/14/2022 Do you have transportation difficulties? No MIGRATION.5127178 026 Information not available 08/14/2022 Are you able to walk? YESWOREST MIGRATION.1454342 026 Information not available 08/14/2022 Are you able to care for yourself? Yes MIGRATION.5943499 026 Information not available 08/14/2022 Do you have difficulty dressing or bathing? No MIGRATION.6964421 026 Information not available 08/14/2022 What is your exercise level? None [email or web address] Information not available 09/03/2023 Mental Status Question Answer Note LastModified by Organizat ion Details LastModified Time Do you have difficulty concentrating, remembering or making decisions? No MIGRATION.870580602 6 Information not available 08/14/2022 Family History Relationship Description Onset Age of this Age Resolved Age Notes LastModified by Organization Details LastModified Time Mother Heart disease MIGRATION.792 [id number] Not available 08/14/2022 00:59:51 Mother Diabetes mellitus MIGRATION.807 [id number] Not available 08/14/2022 00:59:51 Sister Diabetes mellitus MIGRATION.939 8220531 Not available 08/14/2022 00:59:51 Sister Heart disease MIGRATION.672 0224103 Not available 08/14/2022 00:59:51 Sister Depressive disorder MIGRATION.634 1501617 Not available 08/14/2022 00:59:51 Brother Diabetes mellitus MIGRATION.609 6917335 Not available 08/14/2022 00:59:51 Father Malignant neoplastic disease testic ular MIGRATION.603 5941984 Not available 08/14/2022 00:59:51 Medical History No [...] high-dose, trivalent, PF 5 completed Not Available [facility] 08/14/2022 01:30:02 Influenza, split virus, quadrivalent, preservative 9 completed Susanna Borden CMA null, [facility] 09/03/2023 10:15:26 Influenza, high-dose, trivalent, PF 2 completed Not Available [facility] 08/14/2022 01:30:03 Influenza, high-dose, trivalent, PF 1 completed Susanna Borden CMA null, [place] [facility] [employer] [facility] 09/03/2023 10:15:26 Influenza, high-dose, trivalent, PF 0 completed SARAH Matos, [place] [facility] [employer] [facility] 09/03/2023 10:15:26 COVID-19, mRNA, LNP-S, PF, 30 mcg/0.3 mL dose 1 completed SARAH Matos, [employer] [facility] 09/03/2023 10:15:26 Influenza, high-dose, quadrivalent, PF 1 completed Not Available [facility] 08/14/2022 01:30:03 SARS-COV-2 (COVID-19) vaccine, UNSPECIFIED 1 completed SARAH Matos, [place] [facility] [employer] [facility] 09/03/2023 10:15:26 SARS-COV-2 (COVID-19) vaccine, UNSPECIFIED 1 completed Susanna Borden CMA null, [place] [facility] [employer] [facility] 09/03/2023 10:15:26 pneumococcal polysaccharide PPV23 9 completed Not Available [facility] 08/14/2022 01:30:04 DTaP 9 completed Not Available [facility] 08/14/2022 01:30:04 Influenza, high-dose, trivalent, PF 8 completed Not Available [facility] 08/14/2022 01:30:04 Influenza, high-dose, trivalent, PF 7 completed Not Available [facility] 08/14/2022 01:30:04 Influenza, high-dose, trivalent, PF 6 completed Not Available [facility] 08/14/2022 01:30:05 Pneumococcal conjugate PCV 13 6 completed Not Available [facility] 08/14/2022 01:30:05 pneumococcal polysaccharide PPV23 5 completed Not Available [facility] 08/14/2022 01:30:05 Influenza, split virus, quadrivalent, preservative 5 completed Not Available [facility] 08/14/2022 01:30:05 Influenza, split virus, trivalent, PF 4 completed SARAH Matos, [place] [facility] [place] [employer] [facility] 09/03/2023 10:15:26 Past Encounters Encounter ID Performer Location Encounter Start Date Encounter Closed Date Diagnosis/Indication Diagnosis SNOMED-CT Code Diagnosis ICD10 Code Diagnosis Note [id number] Alysa Tomlin MD [facility] [address] [place] [address] 10/15/2024 08:59:12 10/15/2024 12:34:59 Bronchitis 66173822 J40 Health Concerns Section Related Observation LastModified by Organization Detai ls LastModified Time None Recorded Concern Status LastModified by Organization Details LastModified Time None Recorded Payers Encounter Date Sequence Insurance Name Policy Number Policy Hernandez Covered Member ID Hernandez Member ID Guarantor Name 10/15/2024 1 MEDICARE B: [facility] MEDICARE Tamie German [id number] Tamie German 10/15/2024 2 [facility] PLAN E (PPO) [id number] Nicho German [id number] Tamie German Notes Date Note Type Note Provider Name and Address Organization Details Recorded Time 10/15/2024 text/html Upper Respirator y SymptomsReported bypatient.Location:[address]; reports congestion Quality:productive cough;colored phlegm;congested;hacki ng cough;wheezy cough Severity:mild Duration:reports 3 days but feels so badly Context:no sick contacts; no foreign travel; ex smoker Associated Symptoms:yellow-green, thick sputum;green sputum started with cough, three days prior, fever on and offreports no sick contactsstopped smoking in 2016 MORALES Singh [address] [facility], [email or web address] [address], [place], [address], [place] [facility] 10/15/2024 09:34:51 OBGyn Episode No OBEpisode recorded.
== END 2024-10-15 11:04 | disposition home or self-care (01) ==
PROVIDERS: PCP Internal Medicine
DX: J40 Bronchitis, not specified as acute or chronic (principal)
CPT/HCPCS: 71046

== ENCOUNTER 2024-10-18 07:19 | Inpatient (IN) | payer MEDICARE, OTHER, SELFPAY ==
[2024-10-18] VITALS (33 sets, daily range): BP systolic 113–136; BP diastolic 42–68; PULSE 73–128; RESP 12–28; TEMP 36.7–37.4; O2SAT 90–100; BMI 27.0
--- NOTE | ~2024-10-18 | CT_ITS ---
CTA chest PE protocol Ordering provider: Therese George MD History: 74 years Female with . SOB, tachycardic, wheezing . Comparison: None. Technique: CT angiogram chest was performed following timed intravenous injection of contrast. Thin s lice axial images and reformatted coronal images were obtained. Three dimensional reformatted images of the chest were also obtained using a [employer] workstation. . Automated exposure control and iterati ve reconstruction technique were employed. The dose-length product was 263.12 mGy-cm. 100 mL Omnipaqu e 350 was given IV. Findings: PULMONARY ARTERIES: No pulmonary embolus. VISUALIZED THORACIC INLET: Normal. MEDIASTINUM: Aorta/coronary arteries: Mild atheromatous disease. Heart/other: The heart is not enlarged. Lymph nodes: Precarinal lymph nodes seen with the largest measuring 1.5 cm. Prevascular and paratrach eal lymph nodes are also noted with the largest measures 1.1 cm.. LUNGS: No pulmonary nodules or masses. No infiltrates or effusions. No pneumothorax. Subsegmental atelectasi s in the lingula. Calcified granuloma in the right lower lobe. VISUALIZED UPPER ABDOMEN: Bilateral small renal cysts Otherwise, the visualized upper abdomen is norm al. MUSCULOSKELETAL: Soft tissues: The superficial soft tissues are normal. Bones: Age appropriate degenerative changes of the spine. IMPRESSION: 1. No pulmonary embolism. 2. No acute cardiopulmonary pathology. 3. Borderline lymphadenopathy in the mediastinum. Reviewed, dictated and finalized at location A.
--- OUTSIDE RECORDS SUMMARY | 2024-10-18 07:24 | XMS_ITS | CONTINUITY OF CARE DOCUMENT ---
Author Name vee baxter Address Unknown Organization [facility] Address [address] [place] [address] Phone [phone] Care Team Providers Care Sql Programmer Analyst Name Role Phone Norberto Leyva MD Unavailable [phone] Americo Tomlin MD Unavailable [phone] Americo Tomlin MD Unavailable [phone] PROBLEMS Condition Status Date Provider Notes Hypercholesterolemia, mixed active Ocri Caesar uenenfelder HYPOTHYROIDISM active ? Norberto Leyva MD SHORTNESS OF BREATH active Wei Gee rg CAD S/P LAD STENT 04/2009 active Wei Ferreira PVC's active Wei Ferreira Hypertension active Wei Ferreira RUQ PAIN completed - Wei Ferreira SVT active Wei Ferreira Family History of Hypertension: completed - Norberto Leyva MD Acute DVT of R popliteal vein active Shahbaz Davila Preop exam active Norberto Leyva MD Hiatal hernia active Norberto Leyva MD Tobacco use, quit active Wei Ferreira Hx of ANEMIA active Wei Ferreira Venous insufficiency active Norberto Leyva MD Varicose veins active Kerrie Zhang CHEST PAIN active Wei Ferreira ENCOUNTERS Date Type Provider Location Encounter Diag nosis - In-person encounter Office Visit Norberto Leyva MD [facility] Preop exam - In-person encounter Office Visit Norberto Leyva MD [facility] Hiatal hernia - In-person encounter Office Visit Norberto Leyva MD [facility] CHEST PAINSHORTNESS OF BREATHCAD S/P LAD STENT 04/2009PVC'sHypertensionRUQ PAINSVTFamily History of Hypertension:Acute DVT of R popliteal veinVenous insufficiencyHx of ANEMIATobacco use, quit - In-person encounter Office Visit Norberto Leyva MD [facility] Varicose veins - In-person encounter Office Visit Norberto Leyva MD [facility] - In-person encounter Office Visit Norberto Leyva MD [facility] - In-person encounter Office Visit Norberto Leyva MD [facility] SVT - In-person encounter Office Visit Norberto Leyva MD [facility] - In-person encounter Office Visit Norberto Leyva MD [facility] - In-person encounter Office Visit Norberto Leyva MD [facility] - In-person encounter Office Visit Norberto Leyva MD [facility] - In-person encounter Office Visit Norberto Leyva MD [facility] PVC's - In-person encounter Office Visit Norberto Leyva MD [facility] - In-person encounter Office Visit Norberto Leyva MD [facility] - In-person encounter Office Visit Norberto Leyva MD [facility] Hypercholesterolemia, mixedHYPOTHYROIDISMSHORTNESS OF BREATH VITAL SIGNS [...] Medina bryant height E&M 64 [in_i] Medina mehta Body Mass Index (Ratio) 28.83 kg/m2 Asael Ferreira blood pressure, cuff size regular Ke rri Caesaryohanacatherineelizabethhca [facility] blood pressure, diastolic 77 mm[Hg] Ke rri Rodriguezwhite [facility] blood pressure, systolic 127 mm[Hg] Dee ri Rodriguezwhite river junction va [facility] center[facility] oxygen saturation, oximetry 96 % Cori Omid respiratory rate E&M 18 /min Cori davis pulse rate 83 /min Cori Pramod [facility] weight E&M 168 [lb_av] Cori Rodrigueze er height E&M 64 [in_i] Cori Rodrigueze er Body Mass Index (Ratio) 28.49 kg/m2 Asael Ferreira blood pressure, resting Yes Asael lobato [facility] blood pressure, diastolic 80 mm[Hg] Da luz Janice blood pressure, systolic 142 mm[Hg] Dac ia Janice oxygen saturation, oximetry 97 % Marcela Jnaice respiratory rate E&M 16 /min Marcela V oss pulse rate 71 /min Marcela Janice weight E&M 166 [lb_av] Marcela Janice height E&M 64 [in_i] Marcela Janice Body Mass Index (Ratio) 28.66 kg/m2 Kai Zhang blood pressure, resting No Scooby ryan Orellana blood pressure, cuff size regular Jarod navarrete Orellana blood pressure, diastolic 82 mm[Hg] [facility] blood pressure, systolic 139 mm[Hg] [facility] oxygen saturation, oximetry 96 % [facility] respiratory rate E&M 14 /min [facility] pulse rate 77 /min [facility] weight E&M 167 [lb_av] [facility] height E&M 64 [in_i] [facility] Body Mass Index (Ratio) 27.98 kg/m2 Anea ivette [facility] blood pressure, diastolic, left arm 78 mm [Hg] Aneatris [facility] blood pressure, systolic, left arm 118 mm [Hg] Aneatris [facility] blood pressure, diastolic, right arm 82 m m[Hg] Aneatris [facility] blood pressure, systolic, right arm 134 m m[Hg] Aneatris [facility] blood pressure, diastolic 78 mm[Hg] An eatris [facility] blood pressure, systolic 118 mm[Hg] Ane atris [facility] pulse rate 80 /min [facility], oximetry 96 % Nohemiatris [facility] respiratory rate E&M 18 /min Aneatri s [facility] weight E&M 163 [lb_av] Nohemiatropal [facility] Body Mass Index (Ratio) 27.56 kg/m2 [...] /min Jianaide Nichole weight E&M 160 [lb_av] [facility] Body Mass Index (Ratio) 27.25 kg/m2 Clyde ar [facility] blood pressure, diastolic, left arm 86 mm [Hg] [facility] blood pressure, systolic, left arm 126 mm [Hg] [facility] blood pressure, diastolic, right arm 72 m m[Hg] [facility] blood pressure, systolic, right arm 124 m m[Hg] [facility] blood pressure, diastolic 72 mm[Hg] [facility] blood pressure, systolic 124 mm[Hg] Osbaldo [facility] pulse rate 85 /min [facility] oxygen saturation, oximetry 97 % [facility] respiratory rate E&M 16 /min [facility] weight E&M 158.2 [lb_av] [facility] height E&M 64 [in_i] [facility] blood pressure, diastolic, left arm 88 mm [...] Pramod menon oxygen saturation, oximetry 99 % Cori Omid respiratory rate E&M 16 /min Cori [...] larry BarrettTom pulse rate 84 /min Za [facility] oxygen saturation, oximetry 97 % Za [facility] respiratory rate E&M 16 /min Za fung weight E&M 192 [lb_av] Za [facility] blood pressure, diastolic, left arm 92 mm [Hg] [facility] blood pressure, systolic, left arm 128 mm [Hg] [facility] blood pressure, diastolic, right arm 81 m m[Hg] [facility] blood pressure, systolic, right arm 125 m m[Hg] Davonte [place] blood pressure, diastolic 81 mm[Hg] Genevieve garza [facility] blood pressure, systolic 125 mm[Hg] Osbaldo valdez [facility] pulse rate 90 /min [facility] oxygen saturation, oximetry 96 % [facility] respiratory rate E&M 16 /min Davonte [facility] weight E&M 207 [lb_av] [facility] blood pressure, diastolic, left arm 94 mm [Hg] Magen Ignacio RN blood pressure, systolic, left arm 157 mm [Hg] Magen Ignacio RN blood pressure, diastolic, right arm 85 m m[Hg] Magen Ignacio RN blood pressure, systolic, right arm 159 m m[Hg] Magen Ignacio RN blood pressure, diastolic 85 mm[Hg] [...] Norberto Leyva MD platelet count 236 10*3/uL [facility] red blood cell distribution width 13.0 % [facility] mean corpuscular hemoglobin concentration, RBC 33.2 g/dL [facility] mean corpuscular hemoglobin, RBC 30.8 pg [facility] mean corpuscular volume, RBC 92.9 fL [facility] hematocrit, blood 39.2 % [facility] hemoglobin, blood 13.0 g/dL [facility] erythrocyte (RBC) count 4.22 10*6/mm3 [facility] leukocyte count, blood 5.3 10*3/mm3 [facility] protein, total, serum 7.9 g/dL [facility] albumin, serum 4.2 g/dL [facility] bilirubin, serum, total 0.70 mg/dL [facility] alkaline phosphatase, serum 84 1/L [facility] alanine aminotransferase (SGPT), serum 35 1/L [facility] aspartate aminotransferase (SGOT), serum 24 1/L [facility] calcium, serum 9.0 mg/dL [facility] blood glucose, random 140 mg/dL [facility] creatinine, serum 0.78 mg/dL [facility] urea nitrogen, blood 22 mg/dL [facility] carbon dioxide, serum, total 26 mmol/L [facility] chloride, serum 106 mmol/L [facility] potassium, serum 3.7 mmol/L [facility] sodium, serum 143 mmol/L [facility] LDL cholesterol, serum 73 mg/dL [facility] LDL cholesterol, serum 157 mg/dL [facility] cholesterol, serum 248 mg/dL [facility] lipoprotein, beta, serum, point, quantitative, calculated 215 mg/dL [facility] cholesterol, serum 312 mg/dL [facility] thyroid stimulating hormone, serum 1.300 u[IU]/mL [facility] platelet count 266 10*3/mm3 [facility] hematocrit, blood 43.5 % [facility] alanine aminotransferase (SGPT), serum 22 1/L [facility] aspartate aminotransferase (SGOT), serum 25 1/L [facility] creatinine, serum 0.85 mg/dL [facility] potassium, serum 4.4 mmol/L [facility] sodium, serum 141 mmol/L [facility] c-reactive protein, quantitative, serum 1.0 mg/L [...] LinkLogic <1000 High LDL/HDL ratio, serum 2.4 [facility] triglyceride, serum, fasting 220 mg/dL [facility] HDL cholesterol, serum 50 mg/dL [facility] LDL cholesterol, serum 118 mg/dL [facility] cholesterol, serum 212 mg/dL [facility] platelet count 267 10*3/uL [facility] red blood cell distribution width 12.8 % [facility] mean corpuscular hemoglobin concentration, RBC 32.8 g/dL [facility] mean corpuscular hemoglobin, RBC 31.1 pg [facility] mean corpuscular volume, RBC 95 fL [facility] hematocrit, blood 40.9 % [facility] hemoglobin, blood 13.4 g/dL [facility] erythrocyte (RBC) count 4.31 10*6/mm3 [facility] monocyte count, blood 0.3 10*3/mm3 [facility] lymphocyte count, blood 1.3 10*3/mm3 [facility] monocytes as percent of blood leukocytes 7 % [facility] lymphocytes as percent of blood leukocytes 33 % [facility] leukocyte count, blood 3.9 10*3/mm3 [facility] vitamin D 25-hydroxy, serum 30 ng/mL [facility] albumin/globulin ratio, serum 1.1 [facility] protein, total, serum 8.1 g/dL [facility] albumin, serum 4.3 g/dL [facility] bilirubin, serum, total 0.3 mg/dL [facility] alkaline phosphatase, serum 73 1/L [facility] alanine aminotransferase (SGPT), serum 19 1/L [facility] aspartate aminotransferase (SGOT), serum 22 1/L [facility] calcium, serum 9.5 mg/dL [facility] blood glucose, fasting 79 mg/dL [facility] creatinine, serum 0.77 mg/dL [facility] urea nitrogen, blood 18 mg/dL [facility] carbon dioxide, serum, total 25 mmol/L [facility] chloride, serum 103 mmol/L [facility] potassium, serum 4.2 mmol/L [facility] sodium, serum 139 mmol/L [facility] globulins, serum, total 3.9 g/dL [facility] B-12, serum 302 pg/mL [facility] folate, serum 9.7 ng/mL [facility] thyroxine, serum, free 1.08 ng/dL [facility] thyroid stimulating hormone, serum 1.800 u[IU]/mL [facility] Estimated Glomerular Filtration Rate (calc) >59 [facility] thyroid stimulating hormone, serum 1.115 u[IU]/mL [facility] cholesterol/HDL ratio, serum 3.7 [facility] triglyceride, serum, fasting 137 mg/dL [facility] HDL cholesterol, serum 46 mg/dL [facility] LDL cholesterol, serum 86 mg/dL [facility] cholesterol, serum 170 mg/dL [facility] globulins, serum, total 4.3 g/dL [facility] estimated glomerular filtration rate 77.5 mL/min [facility] albumin/globulin ratio, serum 0.8 [facility] protein, total, serum 7.9 g/dL [facility] albumin, serum 3.8 g/dL [facility] bilirubin, serum, total 0.3 mg/dL [facility] alkaline phosphatase, serum 62 1/L [facility] alanine aminotransferase (SGPT), serum 20 1/L [facility] aspartate aminotransferase (SGOT), serum 22 1/L [facility] calcium, serum 10.0 mg/dL [facility] blood glucose, fasting 82 mg/dL [facility] creatinine, serum 0.8 mg/dL [facility] urea nitrogen, blood 18 mg/dL [facility] carbon dioxide, serum, total 32 mmol/L [facility] chloride, serum 107 mmol/L [facility] potassium, serum 4.4 mmol/L [facility] sodium, serum 144 mmol/L [facility] platelet count 271 10*3/uL [facility] red blood cell distribution width 14.5 % [facility] mean corpuscular hemoglobin concentration, RBC 33.7 g/dL [facility] mean corpuscular hemoglobin, RBC 31.6 pg [facility] mean corpuscular volume, RBC 93.9 fL [facility] hematocrit, blood 38.9 % [facility] hemoglobin, blood 13.1 g/dL [facility] erythrocyte (RBC) count 4.1 10*6/mm3 [facility] neutrophils, segmented as percent of blood leukocytes 2.6 % [facility] monocyte count, blood 0.2 10*3/mm3 [facility] lymphocyte count, blood 1.2 10*3/mm3 [facility] neutrophils as percent of blood leukocytes 65.5 % [facility] monocytes as percent of blood leukocytes 4.6 % [facility] lymphocytes as percent of blood leukocytes 29.9 % [facility] leukocyte count, blood 3.9 10*3/mm3 [facility] platelet count 329 10*3/uL [facility] red blood cell distribution width 15.8 % [facility] mean corpuscular hemoglobin concentration, RBC 33.2 g/dL [facility] mean corpuscular hemoglobin, RBC 28.6 pg [facility] mean corpuscular volume, RBC 86 fL [facility] hematocrit, blood 35.1 % [facility] hemoglobin, blood 11.6 g/dL [facility] erythrocyte (RBC) count 4.06 10*6/mm3 [facility] monocyte count, blood 0.3 10*3/mm3 [facility] lymphocyte count, blood 1.6 10*3/mm3 [facility] monocytes as percent of blood leukocytes 5 % [facility] lymphocytes as percent of blood leukocytes 28 % [facility] leukocyte count, blood 5.6 10*3/mm3 [facility] albumin/globulin ratio, serum 0.6 [facility] protein, total, serum 8.0 g/dL [facility] albumin, serum 3.1 g/dL [facility] bilirubin, serum, total 0.20 mg/dL [facility] alkaline phosphatase, serum 87 1/L [facility] alanine aminotransferase (SGPT), serum 36 1/L [facility] aspartate aminotransferase (SGOT), serum 20 1/L [facility] calcium, serum 9.0 mg/dL [facility] blood glucose, fasting 92 mg/dL [facility] creatinine, serum 1.02 mg/dL [facility] urea nitrogen, blood 14 mg/dL [facility] carbon dioxide, serum, total 33 mmol/L [facility] chloride, serum 106 mmol/L [facility] potassium, serum 4.6 mmol/L [facility] sodium, serum 139 mmol/L [facility] triglyceride, serum, fasting 183 mg/dL [facility] HDL cholesterol, serum 38 mg/dL [facility] LDL cholesterol, serum 101 mg/dL [facility] cholesterol, serum 176 mg/dL [facility] thyroid stimulating hormone, serum 1.41 u[IU]/mL [facility] platelet count 267 10*3/uL [facility] red blood cell distribution width 14.3 % [facility] mean corpuscular hemoglobin concentration, RBC 30.5 g/dL [facility] mean corpuscular hemoglobin, RBC 28.5 pg [facility] mean corpuscular volume, RBC 93.3 fL [facility] hematocrit, blood 39.3 % [facility] hemoglobin, blood 12.0 g/dL [facility] erythrocyte (RBC) count 4.21 10*6/mm3 [facility] monocytes as percent of blood leukocytes 8.7 % [facility] lymphocytes as percent of blood leukocytes 31.0 % [facility] leukocyte count, blood 5.1 10*3/mm3 [facility] HISTORY OF MEDICATION USE Medication Status [...] Cori Anne alcohol use no Cori Benavidez [facility] caffeine use, averag e drinks per day 0 /d Cori Anne drug use none Cori Benavidez sinan passive cigarette sm stefan exposure yes Cori Friasyumikocherie smoking, year quit 2006 Cori Maynardnoel swain number of years as a smoker 10+ Norberto Leyva MD cigarette use yes Cori alfonso smoking status Former smoker Cori johnsonkaden number of years as a smoker 10+ years [facility] smoking, year quit 2006 [facility] cigarette use yes [facility] social history reviewed E&M revi ewed - no changes required [facility] social history E&M Marital Statu s: [place] with family/friends E thnicity: Smoking History: Jesus Alberto parekh is a former smoker. [facility] exercise type walking, Wii, ex ercise bands [facility] physical exercise, f requency, days per week 7 /wk [facility] alcohol use, average drinks per day none [facility] alcohol use no [facility] caffeine use, averag e drinks per day 0 /d [facility] drug use none [facility] passive cigarette sm stefan exposure yes [facility] smoking status Former smoker Norberto Leyva [...] alcohol use, average drinks per day none Norbetro Leyva MD caffeine use, averag e drinks [...] Katzacojesus alberto smoking history, tot al pack/year [id number] Davonte Manacojesus alberto smoking, year quit 2006 Davonte [place] smoking status former smoker Davonte day social history reviewed E&M reviewed Magen Ignacio RN social history reviewed E&M reviewed Magen Ignacio RN social history reviewed E&M reviewed Cristiana Arcos social history reviewed E&M reviewed Magen Ignacio RN social history reviewed E&M reviewed Magen Ignacio RN social history reviewed E&M reviewed Norberto Leyva MD social history reviewed E&M [...] type Yesenia garcia ID GAR[employer]TT MEDICARE Medicare [id number] [facility] [id number] Other [id number] ADVANCE DIRECTIVES Name Date DISCUSSED - NO [...] Tabs (Levothyroxine sodium) ..... One tab. daily [facility] Cardiology:LDL: 73 ( 12/28/2016) Her updated medication list for this problem includes: Atorvastatin Calcium 40 Mg Tabs (Atorvastatin calcium) ..... 1 tab daily [facility] Cardiology:BP today: 142/80 P rior BP: 139/82 (12/11/2016) [facility] Cardiology:Myoview s can was normal. The following medications were removed from the medication list: Plavix 75 Mg Tabs (Clopidogrel bisulfate) ..... Daily Her updated medication list for this problem includes: Nitroglycerin 0.4 Mg Subl (Nitroglycerin) ..... Use as directed. [facility] Cardiology:Duplex to day shows acute DVT of the R popliteal vein and bilateral venous insufficiency. [facility] Cardiology:The pt johnson d a recent admission for chest pain. OK was ruled out and she was released. Myoview scan was normal. Duplex today shows acute DVT of the R popliteal vein. Will obtain CT to assess for possible pulmonary embolism. [facility] Cardiology:Duplex to day shows acute DVT of the R popliteal vein and bilateral venous insufficiency. Will start Xarelto 15mg BID for 3 weeks followed by 20mg daily. [facility] Cardiology:Echo reordered. Emeterio teresa Zhang Cardiology:Patient [...] is 79% which is within normal limits. [facility] (06/23/2008) C ardiac Cath: Severe coronary artery disease with 90% of the mid left anterior descending, 70 to 80% stenosis of the proximal right femoral artery and 80% stenosis of the lower division of the obtuse marginal branch. Moderate disease of the mid to distal left anterior descending with 40 to 50% stenosis. Normal ejection fraction 70%. [facility] (05/01/2009) C ardiac Cath Comments: Vasovagal reaction at the beginning of the procedure and successful slenting of the mid LAD with a 2.5 x 30 mm Vision stent. Successful closure of the right groin using a 6-Kosovan Angio-Seal closure device. [facility] (05/01/2009) C HOL: 176 (01/02/2009) LDL: 101 (01/02/2009) HDL: 38 (01/02/2009) T (01/02/2009) H gb: 11.6 (03/28/2009) HCT: 35.1 (03/28/2009) RBC: 4.06 (03/28/2009) WBC: 5.6 (03/28/2009) B UN: 14 (01/02/2009) Creat: 1.02 (01/02/2009) Glucose: 92 (01/02/2009) N a+: 139 (01/02/2009) K+: 4.6 (01/02/2009) Cl: 106 (01/02/2009) TSH: 1.41 (01/02/2009) O rders: C arotid Duplex Bilateral (CPT-33375) Norberto Leyva MD Follow-up s/p Stenti ng: [...] Prior BP: / () Orders: E KG (CPT-37537) Norberto Leyva MD cp-sob on exertion: H er updated medication list for this problem includes: Aspirin 81 Mg Tabs (Aspirin) ..... One tab. daily [facility] Calcium 600 + D/minerals Tabs (Calcium carbonate-vit d-min tabs) ..... One tab twice daily BP today: 159/85 Prior BP: / () Orders: C omplete Echo (CPT-83283) C ardiac Cath - GC (*) Norberto [...] tatus EKG Norberto Leyva MD completed SNOMED-CT: [id number] Current Medications Documented Norberto Leyva MD completed SNOMED-CT: [id number] Current Medications Documented Norberto Leyva MD completed Stress EKG Irina Baird MD complet ed Cardiolite, 2 units Norberto Leyva MD c ompleted SPECT Images Irina Baird MD compl eted EKG Norberto Leyva MD completed SNOMED-CT: [id number] Current Medications Documented Norberto Leyva MD completed EKG Norberto Leyva MD completed EKG Norberto Leyva MD completed ePrescribe - Check t his box if eRx is used Norberto Leyva MD completed EKG Norberto Leyva MD completed EKG Norberto Leyva MD completed EKG Norberto Leyva MD completed EKG Magen Ignacio RN completed
--- OUTSIDE RECORDS SUMMARY | 2024-10-18 07:24 | XMS_ITS | Clinical Summary ---
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.] vaccine 65+ Completed 016, 05/01/2015, 05/02/[address] [place] [address] [place] [address] MEDICARE RAILROAD MEDICARE RAILROAD [facility] MEDICARE RAILROAD [facility] Advance Directives For more information, please contact: [phone] * Full Code (Latest Code Status on File) Date Activated Date Inactivated Comments 07/10/2018 6:52 AM 07/13/2018 5:43 PM Care Teams Warehouse Order Filler Relationship Specialty Start Date End Date Americo Tomlin MD PCP - General 07/10/18
--- OUTSIDE RECORDS SUMMARY | 2024-10-18 07:24 | XMS_ITS | Data Portability ---
Author Organization [facility], Main Office Address [address] [place] [address] Care Team Providers Care Telesales Agent Name Role Phone ALYSA TOMLIN Primary Care Provider [phone] Assessment No assessment recorded. Plan of Treatment Reminders Order Date Submit Date Provider Last Modified By Organization Details Last Modified Time Details Appointments Any 15 2024 10:00A M Alysa Tomlin MD Not available Not available Not available Lab vitamin D, 25-hydrox y, total, serum 2024 025 [email or web address] [facility], [address], [place], [address], 08/26/2024 10:30:29 CBC w/ auto diff 2024 025 MEGHAN Stanley, [address], [place], [address], 08/23/2024 01:27:13 TSH, ultra-sen sitive, serum 2024 025 [email or web address] [facility], [address], [place], [address], 08/26/2024 10:30:29 lipid panel, serum 2024 025 MEGHAN Stanley, [address], [place], [address], 08/22/2024 10:07:31 CMP, serum or plasma 2024 025 MEGHAN Stanley, [address], [place], [address], 08/22/2024 10:07:31 lipid panel, serum 2023 024 [email or web address] [address] [facility], [address], [place], [address], 09/10/2023 07:59:42 CBC w/ auto diff 2023 024 MEGHAN [facility], [address], [place], [address], 09/05/2023 07:44:05 vitamin D, 25-hydrox y, total, serum 2023 024 [facility], [address], [place], [address], 09/10/2023 07:59:42 CMP, serum or plasma 2023 024 [place] [address] [facility], [address], [place], [address], 09/10/2023 07:59:42 TSH, ultra-sen sitive, serum 2023 024 [facility], [address], [place], [address], 09/10/2023 07:59:42 T3, free, serum or plasma 2023 024 [place] [address] [facility], [address], [place], [address], 09/10/2023 07:59:42 Referral None recorded. Procedures None recorded. Surgeries None recorded. Imaging XR, chest, 2 view 2024 025 [email or web address] [facility], [address], [place], [address], 10/15/2024 12:34:59 XR, lumbar spine 2022 023 [facility], [address], [place], [address], 05/07/2023 17:46:37 Medication Orders Zithromax Z-Bobby 250 mg tablet 2024 025 [facility], [address] [facility], [place], [address], 10/15/2024 09:30:54 Airsupra 90 mcg-80 mcg/actua tion HFA aerosol inhaler 2024 025 [email or web address] [facility], [address], [address], [place], [place], [id number], 10/15/2024 09:30:47 sertralin e 100 mg tablet 2024 025 ROSCOE [facility], [address], [address], [place], [place], [id number], 07/14/2024 10:54:48 atorvasta tin 40 mg tablet 2024 025 MEGHAN [facility], [address], [address], [place], [place], [id number], 07/14/2024 10:54:48 sertralin e 100 mg tablet 2023 024 [facility], [address], [address], [place], [place], [id number], 09/03/2023 13:31:07 atorvasta tin 40 mg tablet 2023 024 MEGHAN [facility], [address], [address], [place], [place], [id number], 09/03/2023 10:38:22 levothyro xine 25 mcg tablet 2023 024 [facility], [address], [address], [place], [place], [id number], 09/03/2023 13:31:[address] 10 mg tablet 2022 023 [email or web address] [facility], [address], [address], [place], [place], [id number], 09/03/2023 10:16:19 meloxicam 7.5 mg tablet 2022 023 [email or web address] [facility] [address], [address] [place], [address], 05/13/2023 12:43:25 atorvasta tin 40 mg tablet 2022 023 MEGHAN [facility], [address], [address], [place], [place], [id number], 05/05/2023 11:07:21 sertralin e 100 mg tablet 2022 023 MEGHAN [facility], [address], [address], [place], [place], [id number], 05/05/2023 11:07:18 levothyro xine 25 mcg tablet 2022 023 MEGHAN [facility], [address], [address], [place], [place], [id number], 05/05/2023 11:07:20 Patient TargetsNo targets recorded. Patient Instructions Encounter Date Encounter Id Patient Instructions Last Modified By Organization Details Last Modified Time 09/03/2023 [id number] dementia rating scale-2* Not available 09/03/2023 13:25:09 alcohol misuse* Not available 09/03/2023 13:25:09 depression screening* Not available 09/03/2023 13:25:09 multi-dimensiona l health assessment questionnaire* Not available 09/03/2023 13:25:08 Personalized [facility] Plan and Screening Recommendations Advance Directives - [...] I have no recommendations Depression Screening: Negative [email or web address] Not available 09/03/2023 10:52:13 10/15/2024 [id number] Continue fluids and take medications as prescribed. Take otc tylenol for fever and body aches. Chest xray ordered, will call with results. Make sure to stay active and continue to stay hydrated. [email or web address] Not available 10/15/2024 09:30:45 Reason for Referral None Reported. Results Created Date Observation Date Name Description Value Unit Range Abnormal Flag Note LastModifiedBy Organization Detail LastModifiedTime 05/07/20 23 05/07/2023 XR, lumba r spine No observ ation record ed. [facility] [address], [place], [address], 05/12/2023 13:25:09 Result Notes None recorded. Problems Name Problem SNOMED Code Status Onset Date Resolution Date Notes Provider Name and Address Organization Details Recorded Time Venous varices 413636776 Active Not Available [facility] 3 01:13:10 Mammogra phy abnormal 533101743 Completed Not Available [facility] 3 01:13:10 Abdomina l pain 34388761 Completed Not Available [facility] 3 01:13:10 Gastroes ophageal reflux disease 195645307 Active Not Available [facility] 3 01:13:10 Thyroid nodule 237468111 Active 2021 Not Available [facility] 3 01:13:10 Thyroid nodule 391026101 Completed 201711/05/2017 Not Available [facility] 3 01:13:10 Long-ter m drug therapy Completed 202112/14/2021 Not Available [facility] 3 01:13:10 Adult health examinat ion Active 2021 Not Available [facility] 3 01:13:10 Anemia 042965188 Active Not Available [facility] 3 01:13:10 Hypertro phic obesity 224926970 Completed Not Available [facility] 3 01:13:11 Chest pain 64972097 Completed Not Available [facility] 3 01:13:11 Osteopen ia 026097978 Active Not Available [facility] 3 01:13:11 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 561992880 Active 2016 Not Available [facility] 3 01:13:11 Hypothyr oidism 73935538 Active Not Available [facility] 3 01:13:11 Acute urinary tract infectio n 356236055 Completed 202108/19/2022 Lindsey terry, ATUL garcia, [place] [facility] [place] [employer] [facility] 3 08:26:01 Pain of bilatera l knee joints 31659078362 4104 Active 2021 Not Available [facility] 3 01:13:11 Anxiety 40865894 Active Not Available [facility] 3 01:13:12 Coronary arterios clerosis 32860470 Active 2008 s/p stent Not Available [facility] 3 01:13:12 Hyperlip idemia 06286557 Active Not Available [facility] 3 01:13:12 Essentia l hyperten zuhair 94622790 Active Not Available [facility] 3 01:13:12 Allergic rhinitis 53760190 Active 2020 Not Available [facility] 3 01:13:12 Closed fracture of head of radius 46249372 Completed Not Available [facility] 3 01:13:12 Hiatal hernia 62649731 Active 2016 Not Available [facility] 3 01:13:13 Ex-smoke r 5268941 Active stopped in 2006 Not Available [facility] 3 01:13:13 Vitamin D deficien cy 32174857 Active 2022 Alysa Tomlin MD [address], [address], [place], [address] , [facility] [employer] [facility] 3 10:47:32 Eruption 238768825 Active 2022 Alysa Tomlin MD [address], [address], [place], [address] , [facility] [employer] [facility] 3 11:00:13 Dizzines s 963330296 Active 2022 ATUL Aguayo null, [facility] 3 15:17:19 Vertigo 732147421 Active 2022 Alysa Tomlin MD [address], [address], [place], [address] , [facility] [employer] [facility] 3 15:34:41 Muscle pain 21665192 Active 2022 Lindsey terry RMA null, [facility] [place] [facility] 3 17:12:19 Low back pain 664352415 Active 2022 Alysa Tomlin MD [address], [address], [place], [address] , [facility] 3 11:04:47 Knee pain Active 2022 Lindsey terry RMA null, [place] [facility] [place] [facility] 3 12:41:38 Chronic back pain 489730371 Active 2022 Lindsey terry RMA null, [place] [facility] [place] [facility] 3 12:41:51 Swelling of knee joint 364149942 Active 2024 Alysa Tomlin MD [address], [address], [place], [address] , [facility] [employer] [facility] 5 10:54:12 Bronchit is 02370185 Active 2024 MORLAES Singh [address], [address], [place], [address] , [facility] [employer] [facility] 5 09:18:11 Problem Notes None recorded. Procedures Surgical History Date Name Laterality Status Provider Name and Address Organization Details Recorded Time 09/03/19 Medicare Wellness CPT Code, subsequent completed Mabel Case RN [facility] [employer] [facility] 09/03/2023 10:44:57 01/02/20 Medicare Wellness CPT Code, subsequent completed Maura Greer CMA [facility] [employer] [facility] 01/01/2023 10:27:23 08/29/19 23 Medicare Wellness CPT Code, subsequent completed Susanna Powell RN [facility] [employer] [facility] 08/28/2022 10:56:58 01/02/20 Date of Last Mammogram completed Susanna Powell RN [facility] [employer] [facility] 08/28/2022 11:00:02 11/04/19 20 Date of Last Colonoscopy completed Not Available [facility] 08/14/2022 00:59:40 05/27/20 19 Most Recent Bone Density completed Not Available [facility] 08/14/2022 00:59:40 extraction of multiple deciduous teeth completed Not Available [facility] 08/14/2022 00:59:49 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 Medical Equipment None Reported. Allergies Allergen ID Allergen Name Allergen Category Reaction Reaction Severity Criticality Documentation Date Start Date Code Code System Note Provider Name and Address Organization Details Recorded Time 2516 Crestor medicatio n other Not available Not available 08/14/2022 68280 4 RxNorm Mood hyman e, memor y Not Available [facility] 3 01:30:55 2517 Lipitor medicatio n Not available Not available Not available 08/14/2022 50031 5 RxNorm Not Available [facility] 3 01:30:55 Medications Name Sig Start Date [...] Updated DateTime 3 160.02 cm 27.6 kg/m2 40966.4 1 g 96.2 [degF] 77 /min 97 % 97 % 110 mm[Hg] 60 mm[Hg] Jorge Lazo [facility] [employer] [facility] 3 10:32:02 Date Recorded Body height Body mass index (BMI) Body weight Body temperature Oxygen saturation Oxygen saturation in Arterial blood by Pulse oximetry Heart rate Systolic blood pressure Diastolic blood pressure Provider Name and Address Organization Details Last Updated DateTime 4 160.02 cm 27.6 kg/m2 08478.4 1 g 97.9 [degF] 97 % 97 % 71 /min 112 mm[Hg] 68 mm[Hg] Susanna galo [facility] [employer] [facility] 4 10:15:21 Date Recorded Pain severity - 0-10 verbal numeric rating [Score] - Reported Provider Name and Address Organization Details Last Updated DateTime 09/03/2023 0 Mabel Case RN [facility] [employer] [facility] 09/03/2023 10:45:18 Date Recorded Body height Body mass index (BMI) Body weight Body temperature Heart rate Oxygen saturation Oxygen saturation in Arterial blood by Pulse oximetry Systolic blood pressure Diastolic blood pressure Provider Name and Address Organization Details Last Updated DateTime 4 160.02 cm 27.5 kg/m2 11326.8 2 g 97.5 [degF] 75 /min 98 % 98 % 120 mm[Hg] 70 mm[Hg] Dory Antonio [facility] [employer] [facility] 4 10:55:56 Date Recorded Body height Body mass index (BMI) Body weight Body temperature Heart rate Oxygen saturation Oxygen saturation in Arterial blood by Pulse oximetry Systolic blood pressure Diastolic blood pressure Provider Name and Address Organization Details Last Updated DateTime 5 160.02 cm 27.3 kg/m2 27416.2 2 g 97.5 [degF] 70 /min 95 % 95 % 124 mm[Hg] 78 mm[Hg] Korin jones [place] [facility] [employer] [facility] 5 10:26:39 Date Recorded Body height Body mass index (BMI) Body weight Body temperature Heart rate Oxygen saturation Oxygen saturation in Arterial blood by Pulse oximetry Systolic blood pressure Diastolic blood pressure Provider Name and Address Organization Details Last Updated DateTime 5 160.02 cm 27.1 kg/m2 15495.6 3 g 98.1 [degF] 99 /min 95 % 95 % 118 mm[Hg] 72 mm[Hg] Korin jones [place] [facility] [employer] [facility] 5 09:08:16 Social History Question Answer Notes LastModified by Organization Details LastModified Time Tobacco Smoking Status Former Smoker Not Available [facility] 08/14/2022 00:49:40 Do You Have An Advance Directive? No Papers Given Previously [email or web address] Information not available 09/03/2023 What Is Your Level Of Alcohol Consumption? None MIGRATION.0301 [id number] Information not available 08/14/2022 Are You Blind Or Do You Have Difficulty Seeing? No MIGRATION.0301 085133 Information not available 08/14/2022 What Is Your Level Of Caffeine Consumption? Occasional MIGRATION.0301 [id number] Information not available 08/14/2022 How Much Tobacco Do You Chew? None MIGRATION.0301 025345 Information not available 08/14/2022 Are You Deaf Or Do You Have Serious Difficulty Hearing? No MIGRATION.0301 836264 Information not available 08/14/2022 What Type Of Diet Are You Following? REGULAR MIGRATION.0301 575332 Information not available 08/14/2022 Which Illicit Or Recreational Drugs Have You Used? None MIGRATION.0301 555925 Information not available 08/14/2022 What Is Your Occupation? Retired MIGRATION.0301 250259 Information not available 08/14/2022 Have There Been Any Changes To Your Family Or Social Situation? No MIGRATION.0301 200940 Information not available 08/14/2022 What Is The Fluoride Status Of Your Home? Fluoridated MIGRATION.0301 518253 Information not available 08/14/2022 When Did You Quit Smoking? 16+yearssincelast cigarette [email or web address] Information not available 08/28/2022 Are There Any Guns Present In Your Home? No MIGRATION.0301 332148 Information not available 08/14/2022 [facility] MIGRATION.0301 672118 Information not available 08/14/2022 Guns Present In The Home? No [email or web address] Information not available 09/03/2023 Are You Able To Care For Yourself? Yes [email or web address] Information not available 08/28/2022 Are You Blind Or Do Yo Have Difficulty Seeing? No [email or web address] Information not available 08/28/2022 Are You Deaf Or Do You Have Serious Difficulty Hearing? No Information not available 08/28/2022 Live Alone Of With Others? With Others [email or web address] Information not available 09/03/2023 What Was The Date Of Your Most Recent Tobacco Screening? 09/03/2023 [email or web address] Information not available 09/03/2023 What Is Your Current Pack Years? 30ormorepackyears [email or web address] Information not available 08/28/2022 Do You Have Any Pets? No [email or web address] Information not available 09/03/2023 Do You Use Your Seat Belt Or Car Seat Routinely? Yes MIGRATION.0301 [id number] Information not available 08/14/2022 Do You Have Smoke And Carbon Monoxide Detectors In Your Home? Yes MIGRATION.0301 950282 Information not available 08/14/2022 At What Age Did You Start Smoking Tobacco? 16 MIGRATION.0301 551929 Information not available 08/14/2022 Are You Passively Exposed To Smoke? No [email or web address] Information not available 09/03/2023 Are There Any Smokers In Your House? No [email or web address] Information not available 09/03/2023 How Much Tobacco Do You Smoke? 2 PPD MIGRATION.0301 562307 Information not available 08/14/2022 Do You Feel Stressed (tense, Restless, Nervous, Or Anxious, Or Unable To Sleep At Night)? [id number] MIGRATION.22990722 Information not available 08/14/2022 Do You Use Sunscreen Routinely? No MIGRATION.[id number] Information not available 08/14/2022 Have You Recently Traveled Abroad? No [email or web address] Information not available 09/03/2023 Do You Have Any Dietary Restrictions? No [email or web address] Information not available 09/03/2023 Sex: Female Functional Status Question Answer Note LastModified by Organizat ion Details LastModified Time Do you have difficulty walking or climbing stairs? No MIGRATION.5046165 026 Information not available 08/14/2022 Do you have transportation difficulties? No MIGRATION.7922439 026 Information not available 08/14/2022 Are you able to walk? YESWOREST MIGRATION.4251697 026 Information not available 08/14/2022 Are you able to care for yourself? Yes MIGRATION.2433487 026 Information not available 08/14/2022 Do you have difficulty dressing or bathing? No MIGRATION.1050809 026 Information not available 08/14/2022 What is your exercise level? None [email or web address] Information not available 09/03/2023 Mental Status Question Answer Note LastModified by Organizat ion Details LastModified Time Do you have difficulty concentrating, remembering or making decisions? No MIGRATION.[id number] 6 Information not available 08/14/2022 Family History Relationship Description Onset Age of this Age Resolved Age Notes LastModified by Organization Details LastModified Time Mother Heart disease MIGRATION.440 [id number] Not available 08/14/2022 00:59:51 Mother Diabetes mellitus MIGRATION.876 [id number] Not available 08/14/2022 00:59:51 Sister Diabetes mellitus MIGRATION.721 [id number] Not available 08/14/2022 00:59:51 Sister Heart disease MIGRATION.174 [id number] Not available 08/14/2022 00:59:51 Sister Depressive disorder MIGRATION.246 [id number] Not available 08/14/2022 00:59:51 Brother Diabetes mellitus MIGRATION.871 [id number] Not available 08/14/2022 00:59:51 Father Malignant neoplastic disease testic saba FROST.632 [id number] Not available 08/14/2022 00:59:51 Medical History No [...] high-dose, trivalent, PF 5 completed Not Available [facility] 08/14/2022 01:30:02 Influenza, split virus, quadrivalent, preservative 9 completed Susanna Borden CMA null, [facility] [employer] [facility] 09/03/2023 10:15:26 Influenza, high-dose, trivalent, PF 2 completed Not Available [facility] 08/14/2022 01:30:03 Influenza, high-dose, trivalent, PF 1 completed Susanna Borden CMA null, [facility] [employer] [facility] 09/03/2023 10:15:26 Influenza, high-dose, trivalent, PF 0 completed Susanna Borden CMA null, [facility] [employer] [facility] 09/03/2023 10:15:26 COVID-19, mRNA, LNP-S, PF, 30 mcg/0.3 mL dose 1 completed SARAH Matos, [facility] [employer] [facility] 09/03/2023 10:15:26 Influenza, high-dose, quadrivalent, PF 1 completed Not Available [facility] 08/14/2022 01:30:03 SARS-COV-2 (COVID-19) vaccine, UNSPECIFIED 1 completed Susanna Borden CMA null, [facility] [employer] [facility] 09/03/2023 10:15:26 SARS-COV-2 (COVID-19) vaccine, UNSPECIFIED 1 completed Susanna Borden CMA null, [place] [facility] 09/03/2023 10:15:26 pneumococcal polysaccharide PPV23 9 completed Not Available [facility] 08/14/2022 01:30:04 DTaP 9 completed Not Available [facility] 08/14/2022 01:30:04 Influenza, high-dose, trivalent, PF 8 completed Not Available [facility] 08/14/2022 01:30:04 Influenza, high-dose, trivalent, PF 7 completed Not Available [facility] 08/14/2022 01:30:04 Influenza, high-dose, trivalent, PF 6 completed Not Available [facility] 08/14/2022 01:30:05 Pneumococcal conjugate PCV 13 6 completed Not Available [facility] 08/14/2022 01:30:05 pneumococcal polysaccharide PPV23 5 completed Not Available [facility] 08/14/2022 01:30:05 Influenza, split virus, quadrivalent, preservative 5 completed Not Available [facility] 08/14/2022 01:30:05 Influenza, split virus, trivalent, PF [address] [facility], [place] [facility] [employer] [facility] 09/03/2023 10:15:26 Past Encounters Encounter ID Performer Location Encounter Start Date Encounter Closed Date Diagnosis/Indication Diagnosis SNOMED-CT Code Diagnosis ICD10 Code Diagnosis Note [id number] MD SEDA [facility] [address] [facility] [place] [address] 08/16/2020 00:00:00 08/16/2020 12:02:06 [id number] MD SEDA [facility] [address] [facility] [place] [address] 12/20/2020 00:00:00 12/20/2020 11:57:36 [id number] MD SEDA [facility] [address] [facility] [place] [address] 04/23/2021 00:00:00 04/23/2021 10:26:03 [id number] Alysa Tomlin MD [facility] [address] [place] [address] 08/21/2021 00:00:00 08/21/2021 16:51:01 [id number] Alysa Tomlin MD [facility] [address] [place] [address] 12/24/2021 00:00:00 12/24/2021 11:23:46 [id number] Alysa Tomlin MD [facility] Internal Med [facility] [address] [place] [address] 04/29/2022 00:00:00 04/29/2022 11:13:15 [id number] Alysa Tomlin MD [facility] [address] [place] [address] 08/28/2022 10:15:24 08/28/2022 10:55:08 Adult health examination 456448745 Z00.00 Colonoscop y- 11/04/2019M ammogram- 2021Dexa- 05/27/19Pn eumovax - 04/2019,Prevn ar 05/2019FLU -2CO VID- 08/29/20, 09/29/20, 04/13/2021 , 03/2022 Coronary arteriosclerosis 49963572 I25.10 s/p stents, on asa Hypothyroidism 48470463 E03.9 under control with meds Anxiety 32287181 F41.9 better with meds Allergic rhinitis 067553 04 J30.9 meds help Hyperlipidemia 61260258 E78.5 on meds Essential hypertension 99354352 I10 under control Anemia 115293524 D64.9 stable Gastroesop hageal reflux disease 864832581 K21.9 stable Hiatal hernia 28606905 K 44.9 s/p surgery, no symptoms Ex-smoker 6521220 Z87.89 1 quit in 2006 Thyroid nodule 327377765 E04.1 getting us from ENT Venous varices 462671842 I83.90 using pressure stockings Pain of bi lateral knee joints 9808495151 07608 M25.561 otc voltaren Vitamin D deficiency 347 62256 E55.9 Screening mammography 24 452372 Z12.31 Postmenopausal state 764 25148 Z78.0 Screening for disorder 751141484 Z13.9 [id number] Alysa Tomlin MD [facility] Internal [address] [facility] [place] [address] 01/01/2023 10:22:06 01/01/2023 11:02:49 Adult health examination 352036131 Z00.00 Colonoscop y- 11/04/2019M ammogram- 3Dexa- 3Pneumo vax - 04/2019,Prevn ar 05/2019FLU -2CO VID- 08/29/20, 09/29/20, 04/13/2021 , 03/2022 Coronary arteriosclerosis 01169666 I25.10 s/p stents, on asa Hypothyroidism 28797885 E03.9 under control with meds Anxiety 99743173 F41.9 better with meds Allergic rhinitis 264640 04 J30.9 meds help Hyperlipidemia 88187633 E78.5 on meds and under control Essential hypertension 97877182 I10 under control Anemia 238929779 D64.9 stable Gastroesop hageal reflux disease 539955858 K21.9 stable Hiatal hernia 73029984 K 44.9 s/p surgery, no symptoms Ex-smoker 0884656 Z87.89 1 quit in 2006 Thyroid nodule 302552523 E04.1 small, no more f/u needed Venous varices 367440543 I83.90 using pressure stockings Pain of bi lateral knee joints 1953903512 37162 M25.561 otc voltaren prn Vitamin D deficiency 347 18283 E55.9 otc History of deep vein thrombosis 324157149 Z86.718 no recurrence Eruption 108961358 R21 [id number] Alysa Tomlin MD [facility] Internal Med [facility] [address] [facility] [place] [address] 03/10/2023 15:08:43 03/10/2023 15:39:30 Vertigo 018848877 R42 meclizine [id number] Alysa Tomlin MD [facility] Internal Med [facility] [address] [facility] [place] [address] 05/05/2023 10:23:12 05/05/2023 11:11:55 Adult health examination 640523545 Z00.00 Colonoscop y- 11/04/2019M ammogram- exa- 3Pneumo vax - 04/2019,Prevn ar 05/2019FLU -03/2022, 3COV ID- 08/29/20, 09/29/20, 04/13/2021 , 03/2022 Coronary arteriosclerosis 69307550 I25.10 s/p stents, on asa Hypothyroidism 27874156 E03.9 under control with meds Anxiety 38956258 F41.9 better with meds Allergic rhinitis 295277 04 J30.9 meds help Hyperlipidemia 60332534 E78.5 on meds and under control Essential hypertension 58162581 I10 under control Anemia 077957692 D64.9 stable Gastroesop hageal reflux disease 314693897 K21.9 stable Hiatal hernia 05465438 K 44.9 s/p surgery, no symptoms Ex-smoker 1127430 Z87.89 1 quit in 2006 Thyroid nodule 373659562 E04.1 small, no more f/u needed Venous varices 930824195 I83.90 using pressure stockings Pain of bi lateral knee joints 2408026034 00483 M25.561 otc voltaren prn Vitamin D deficiency 347 51911 E55.9 otc History of deep vein thrombosis 743262829 Z86.718 no recurrence Low back pain 705495875 M54.50 [id number] Alysa Tomlin MD [facility] [address] [facility] [place] [address] 09/03/2023 10:08:01 09/03/2023 10:46:26 Hypothyroidism 12366135 E03.9 under control with meds Anxiety 11698932 F41.9 better with meds Essential hypertension 32077698 I10 under control , no meds Adult heal th examination 612618153 Z00.00 Colonoscop y- 11/04/2019M ammogram- 3Dexa -3Pneumo vax - 04/2019,Prevn ar 05/2019FLU -03/2022, 3COV ID- 08/29/20, 09/29/20, 04/13/2021 , 03/2022 Coronary arteriosclerosis 70607810 I25.10 s/p stents, on asa Allergic rhinitis 339845 04 J30.9 meds help Hyperlipidemia 27759183 E78.5 on meds and under control Anemia 292923934 D64.9 stable Gastroesop hageal reflux disease 972402260 K21.9 stable Hiatal hernia 75869092 K 44.9 s/p surgery, no symptoms Ex-smoker 6911408 Z87.89 1 quit in 2006 Thyroid nodule 601570977 E04.1 small, no more f/u needed Venous varices 284935376 I83.90 using pressure stockings Pain of bi lateral knee joints 0413159099 85947 M25.561 otc voltaren prn helps Vitamin D deficiency 347 46400 E55.9 otc History of deep vein thrombosis 163431762 Z86.718 no recurrence Low back pain 148811545 M54.50 improved Screening for disorder 701993057 Z13.9 [id number] Alysa Tomlin MD [facility] [address] [place] [address] 01/14/2024 10:44:50 01/14/2024 11:31:08 Chronic back pain 946646632 G89.29 better Hypothyroidism 51287159 E03.9 under control with meds Anxiety 72427834 F41.9 better with meds Essential hypertension 92009299 I10 under control , no meds Adult heal th examination 328714373 Z00.00 Colonoscop y- 11/04/2019M ammogram- 11/2022, wants to wait for a year to get it done with dexaDexa-3Pneumo vax - 04/2019,Prevn ar 05/2019FLU -03/2022, 3COV ID- 08/29/20, 09/29/20, 04/13/2021 , 03/2022 Coronary arteriosclerosis 69200629 I25.10 s/p stents, on asa Allergic rhinitis 007362 04 J30.9 meds help Hyperlipidemia 47347005 E78.5 on meds and under control Anemia 019004518 D64.9 improved Gastroesop hageal reflux disease 663253608 K21.9 stable Hiatal hernia 00660871 K 44.9 s/p surgery, no symptoms Ex-smoker 0665925 Z87.89 1 quit in 2006 Thyroid nodule 007851069 E04.1 small, no more f/u needed Venous varices 242249012 I83.90 using pressure stockings and helps Pain of bi lateral knee joints 8699375640 86921 M25.561 otc Vitamin D deficiency 347 28835 E55.9 otc History of deep vein thrombosis 916374815 Z86.718 no recurrence Low back pain 273563652 M54.50 better [id number] Alysa Tomlin MD [facility] [address] [facility] [place] [address] 07/14/2024 10:17:22 07/14/2024 10:56:43 Essential hypertension 40627658 I10 under control , no meds needed Hypothyroidism 99197147 E03.9 under control with meds Chronic back pain 704714 002 G89.29 better Anxiety 80435278 F41.9 better with meds Adult heal th examination 255750750 Z00.00 Colonoscop y- 11/04/2019M ammogram- 11/2022, wants to wait for a year to get it done with dexaDexa-3Pneumo vax - 04/2019,Prevn ar 13- 05/2019FLU -03/2022, 04/2023, 4COVID- 08/29/20, 09/29/20, 04/13/2021 , 03/2022 Coronary arteriosclerosis 15590558 I25.10 stable Allergic rhinitis 531441 04 J30.9 meds help Hyperlipidemia 20499563 E78.5 on meds and under control Anemia 975424440 D64.9 improved Gastroesop hageal reflux disease 637129342 K21.9 stable Hiatal hernia 10390371 K 44.9 s/p surgery, no symptoms Ex-smoker 7533919 Z87.89 1 quit in 2006 Thyroid nodule 008914849 E04.1 small, no more f/u needed Venous varices 834032920 I83.90 using pressure stockings and helps Vitamin D deficiency 347 45776 E55.9 otc History of deep vein thrombosis 006794330 Z86.718 no recurrence Low back pain 893180529 M54.50 better Swelling o f knee joint 187435682 M25.469 improving, local voltaren gel [id number] Alysa Tomlin MD [facility] [address] [place] [address] 10/15/2024 08:59:12 10/15/2024 12:34:59 [facility] 33752746 J40 Health Concerns Section Related Observation LastModified by Organization Detai ls LastModified Time None Recorded Concern Status LastModified by Organization Details LastModified Time None Recorded Advance Directives Directive N: papers given previously Payers Encounter Date Sequence Insurance Name Policy Number Policy Hernandez Covered Member ID Hernandez Member ID Guarantor Name 05/05/2023 1 [facility] Tamie Hunter German [id number] Tamie Hunter German 05/05/2023 2 [facility] - RAILROAD [facility] - PLAN E (PPO) [id number] [facility] [id number] Tamie Hunter German 09/03/2023 1 [facility]IC[facility] B[facility] Tamie Hunter German [id number] Tamie Hunter German 09/03/2023 2 [facility] - RAILROAD CLAIM CENTER - PLAN E (PPO) [id number] [facility] [id number] Tamie Hunter German 01/14/2024 1 [facility] B[facility] Tamie J German [id number] Tamie Hunter German 01/14/2024 2 [facility] - RAILROAD CLAIM CENTER - PLAN E (PPO) [id number] [facility] [id number] Tamie Hunter German 07/14/2024 1 [facility]IC[facility] B[facility] Tamie J German [id number] Tamie German 07/14/2024 2 [facility] CLAIM [facility] - PLAN E (PPO) [id number] Nicho Malloyter [id number] Tamie Hunter Maxi 10/15/2024 1 MEDICARE B: [place] [facility] - RAILROAD MEDICARE Tamie Hunter Maxi [id number] Tamie Elsa Maxi 10/15/2024 2 [facility] CLAIM CENTER - PLAN E (PPO) [id number] Nicho Spencer German [id number] Tamie J Maxi Notes Date Note Type [...] more f/u needed Alysa Tomlin MD [address] [facility], [facility] [address], [place], [address], [place] - [facility] 05/05/2023 11:08:07 09/03/2023 text/html Pt is here [...] taking any more Alysa Tomlin MD [address] [facility], [facility] [address], [place], [address], [place] - [facility] 09/03/2023 13:25:13 01/14/2024 text/html Pt is here [...] Tomlin MD [address], [address], [place], [address], [employer] 01/14/2024 13:29:20 07/14/2024 text/html Pt is here [...] otc Alysa Tomlin MD [address], [facility] [address], [place], [address], [employer] 07/14/2024 10:55:03 10/15/2024 text/html Upper Respirator y SymptomsReported bypatient.Location:[facility]; reports congestion Quality:productive cough;colored phlegm;congested;hacki ng cough;wheezy cough Severity:mild Duration:reports 3 days but feels so badly Context:no sick contacts; no foreign travel; ex smoker Associated Symptoms:yellow-green, thick sputum;green sputum started with cough, three days prior, fever on and offreports no sick contactsstopped smoking in 2017 DEYSI Singh-Tj [address] [facility], [facility] [address], [place], [address], [place] - [facility] 10/15/2024 09:34:51 OBGyn Episode No OBEpisode recorded.
--- OUTSIDE RECORDS SUMMARY | 2024-10-18 07:24 | XMS_ITS | Referral Summary ---
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 Gender Identity Not on file Sexual Orientation Not on file Last Filed Vital Signs Vital Sign Reading Time Taken Comments Blood Pressure 120/76 02/24/2024 9:13 AM CDT Pulse 71 02/24/2024 9:13 AM CDT Temperature 37.1 C (98.7 F) 07/27/2018 8:46 AM PRODUCTION SORTER Respiratory Rate 18 07/13/2018 12:45 PM PRODUCTION SORTER Oxygen Saturation 99% 02/24/2024 9:13 AM CDT Inhaled Oxygen Concentration - - Weight 70.8 kg (156 lb) 02/24/2024 9:13 AM CDT Height 162.6 cm (5' 4 ) 02/24/2024 9:13 AM CDT Body Mass Index 26.78 02/24/2024 9:13 AM CDT Plan of Treatment Not on file [place] [address] [place] [address] MEDICARE RAILROAD [facility] RAILROAD [facility] Advance Directives For more information, please contact: [phone] * Full Code (Latest Code Status on File) Date Activated Date Inactivated Comments 07/10/2018 6:52 AM 07/13/2018 5:43 PM Care Teams Forest Examiner Relationship Specialty Start Date End Date Americo Tomlin MD PCP - General 07/10/18
--- NOTE | 2024-10-18 07:47 | ED.SOB ---
HPI - SOB/Dyspnea General Chief Complaint: Shortness of Breath/Dyspnea Stated Complaint: SOB Time Seen by Provider: 10/18/24 07:31 History of Present Illness HPI Narrative: 74-year-old female with history of hypothyroidism, hyperlipidemia presenting with shortness of breath. Patient states that for the last week she has been coughing, wheezing, experiencing a lot of nasal congestion. She had a chest x-ray on Friday which looked okay and she was started on a Z-Bobby for possible pneumonia. States that she has been taking this as prescribed but her symptoms have continued to worsen. She is now feeling increasingly fatigued and she has had some chest pain especially with coughing. Reports subjective fevers. No lightheadedness, numbness or weakness, abdominal pain, nausea vomiting, diarrhea, leg swelling. Related Data Home Medications ?Medication ?Instructions ?Recorded ?Confirmed ?Last Taken ?Type atorvastatin 40 mg tablet 40 mg PO DAILY 10/28/19 10/18/24 11/03/19 History levothyroxine 50 mcg tablet 50 mcg PO DAILY 10/28/19 10/18/24 10/18/24 06:00 History sertraline 100 mg tablet 100 mg PO DAILY 10/28/19 10/18/24 11/03/19 History nitroglycerin 0.4 mg sublingual 0.4 mg sublingual Q5-15M PRN Chest 04/17/20 10/18/24 Unknown History tablet Pain cholecalciferol (vitamin D3) 10 10 mcg PO DAILY 10/18/24 10/18/24 10/18/24 08:00 History mcg (400 unit) capsule (Vitamin D3) diclofenac sodium 1 % topical gel 2 g topical QID PRN arthritis pain 10/18/24 10/18/24 Unknown History (Arthritis Pain (diclofenac)) docusate sodium 100 mg capsule 100 mg PO DAILY PRN constipation 10/18/24 10/18/24 10/18/24 08:00 History (Colace) Allergies Allergy/AdvReac Type Severity Reaction Status Date / Time rosuvastatin Allergy Unknown Anxiety Verified 10/18/24 07:20 Review of Systems Review of Systems: All systems reviewed & are unremarkable except as noted in HPI and below PMFSH Past Medical History Medical History Shingles Kidney stones Hiatal hernia Gastroesophageal reflux disease Coronary artery disease Deep vein thrombosis of right lower extremity Anemia With history of blood transfusion. Hypothyroidism Hyperlipidemia Anxiety Surgical History Surgical History History of hysterectomy for benign disease History of bilateral cataract extraction History of coronary artery stent placement (~2008) x1. Family History Family History Mother Diabetes mellitus Family history of cardiovascular disease Sibling Diabetes mellitus Family history of cardiovascular disease Social History Social History Social History: Surrogate decision maker: Ac German, spouse. Code status: Full code. Smoking packs per day: 2 Smoking cigarettes per day: 40.0 Years smoked: 40 Smoking pack-years: 80.00 Smoking status: Former smoker Tobacco type: cigarettes Alcohol intake: never Substance use: never Substance use type: does not use Do You Feel Safe in your Home?: Yes Lack of Transportation: No Lack of Food: Never True Current Housing: I Have Housing Concerned About Future Housing: No Difficulty Paying Gas/Electric Bills: No Difficulty Paying for Meds: No Currently Unemployed: No Education: High School Diploma/GED Difficulty w/ Childcare or Family Care: No Additional living arrangements comments: Resides with her in [place]. 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 Gender identity (if verbalized by the patient): Female Spiritual care concerns: No Exam Narrative: GENERAL: Ill-appearing but nontoxic, in no acute distress, pleasant cooperative HEAD: Normocephalic, atraumatic. EYES: PERRLA and EOMI. ENT: Nares clear, no rhinorrhea or epistaxis. Mucous membranes moist. NECK: Supple. CHEST: Diminished breath sounds bilaterally with scattered expiratory wheezing HEART: Tachycardic, regular rhythm ABDOMEN: Soft, nontender, nondistended EXTREMITIES: Normal range of motion. No edema. SKIN: Warm, dry, no rash. NEURO: No focal deficits. Alert and oriented x3. PSYCH: Normal mood and affect. Course Vital Signs Vital signs: Vital Signs Temperature 99.3 F 10/18/24 07:27 Pulse Rate 107 H 10/18/24 07:27 Respiratory Rate 20 10/18/24 07:27 Pulse Oximetry 93 10/18/24 07:27 Oxygen Delivery Room Air 10/18/24 07:27 Temperature 98.2 F 10/18/24 16:10 Pulse Rate 112 H 10/18/24 16:10 Respiratory Rate 22 H 10/18/24 16:10 Blood Pressure 125/54 L 10/18/24 16:10 Pulse Oximetry 96 10/18/24 16:10 Oxygen Delivery Room Air 10/18/24 16:43 MDM - SOB/Dyspnea MDM Narrative Medical decision making narrative: 74-year-old female presenting with shortness of breath and chest pain. Patient is tachycardic in the low 100s. O2 sat sitting around 93 94%. Remainder of vitals are within normal limits. Plan for breathing treatment, steroids, blood work, CT chest. EKG per my interpretation shows normal sinus rhythm, nonspecific ST and T-wave changes, no ST elevations or depressions. Similar to prior? CT chest shows no pulmonary embolus. No evidence of pneumonia. No acute abnormalities noted. Blood work with mild leukopenia and thrombocytopenia. Troponin undetectable. Negative for COVID, flu, RSV. Patient received a breathing treatment but continues to be very wheezy. Patient continues to be very wheezy after the hour long breathing treatment, she is saturating well but remains tachypneic. Feel she would benefit from admission for scheduled breathing treatments, steroids, observation. She is agreeable with this plan. Differential Diagnosis Differential diagnosis: Likely acute exacerbation of chronic obstructive airways disease, congestive heart failure, community acquired pneumonia and asthma with exacerbation Medical Records Attestation: I reviewed the patient's medical records. Lab Data Attestation: I reviewed the patient's lab results. 10/18/24 08:35 10/18/24 08:35 Labs: Lab Results 10/18/24 Range/Units 08:35 WBC 3.7 L (4.5-10.0) K/mm3 RBC 4.09 L (4.2-5.4) M/mm3 Hgb 12.6 (12.0-15.0) g/dL Hct 39.0 (37.0-47.0) % MCV 95.4 (80-100) fl MCH 30.8 (26-34) pg MCHC 32.3 (32-36) g/dl RDW 12.5 (11.5-14.5) % Plt Count 149 L (150-375) k/mm3 MPV 9.5 (7.4-10.4) fl Immature Gran % (Auto) 0.5 (0-0.5) % Neut % (Auto) 66.3 (45.5-73.1) % Lymph % (Auto) 22.8 (18.3-44.2) % [place] % (Auto) 7.8 (2.6-8.5) % Eos % (Auto) 2.1 (0-4.4) % Baso % (Auto) 0.5 (0.2-1.2) % Lymph # (Auto) 0.85 L (0.9-3.2) K/mm3 [place] # (Auto) 0.3 (0.1-0.6) K/mm3 Eos # (Auto) 0.1 (0-0.3) K/mm3 Baso # (Auto) 0.0 (0.0-0.1) K/mm3 Abs Immat Gran (auto) 0.02 (0.00-0.031) K/mm3 Absolute Neuts (auto) 2.5 (1.3-6.7) K/mm3 Absolute Nucleated RBC 0.000 (0.0-0.012) K/mm3 Nucleated RBC % 0.0 (0.0-0.2) % Sodium 138 (137-145) mmol/L Potassium 3.8 (3.4-5.0) mmol/L Chloride 104 (98-107) mmol/L Carbon Dioxide 28 (22-30) mmol/L Anion Gap 6 (4-12) mmol/L BUN 16 (7-17) mg/dL Creatinine 0.70 (0.7-1.0) mg/dL Estim Creat Clear Calc 55 ml/min Estimated GFR > 60 (59 - ) Glucose 100 (65-110) mg/dL Calcium 9.4 (8.4-10.2) mg/dL Total Bilirubin 0.5 (0.2-1.3) mg/dL AST 49 H (14-36) U/L ALT 29 (6-35) U/L Alkaline Phosphatase 78 (38-126) U/L Troponin I < 0.012 (0.000-0.034) ng/mL NT-Pro-B Natriuret Pep 100 (19.9-100) pg/mL Total Protein 8.0 (6.3-8.2) g/dL Albumin 4.1 (3.5-5.1) g/dL Influenza A (RT-PCR) Negative (Negative) Influenza B (RT-PCR) Negative (Negative) RSV (RT-PCR) Negative (Negative) SARS-CoV-2 RNA (RT-PCR) Negative (Negative) Imaging Data Radiologist's impression: ITS Impressions Chest CTA 10/18/24 09:30 IMPRESSION: 1. No pulmonary embolism. 2. No acute cardiopulmonary pathology. 3. Borderline lymphadenopathy in the mediastinum. Critical Care Time Critical Care Time Critical Care Time: Yes Total Critical Care Time: 35 Discharge Plan Discharge Clinical Impression: Shortness of breath, Wheezing, Cough Patient Disposition: Still a Patient Condition: Guarded Prognosis
--- OUTSIDE RECORDS SUMMARY | 2024-10-18 07:51 | XMS_ITS | Clinical Summary ---
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 Gender Identity Not on file Sexual Orientation Not on file Obstetrics History Last Filed Vital Signs Vital Sign Reading Time Taken Comments Blood Pressure 120/76 02/24/2024 9:13 AM CDT Pulse 71 02/24/2024 9:13 AM CDT Temperature 37.1 C (98.7 F) 07/27/2018 8:46 AM COMPUTER SYSTEM TECHNICIAN Respiratory Rate 18 07/13/2018 12:45 PM COMPUTER SYSTEM TECHNICIAN Oxygen Saturation 99% 02/24/2024 9:13 AM CDT [...] (2 - Tdap) 11/22/2018 9 Influenza Vaccine (Season Ended) 2025 04/16/2019, 03/24/2018, 04/23/2017, Additional history exists Pneumococcal vaccine 65+ Completed 016, 05/01/2015, 05/02/[address] [place] [address] MEDICARE RAILROAD MEDICARE RAILROAD [facility] MEDICARE RAILROAD [facility] Member Subscriber Plan / Payer (Ef fective 2022-Present) Name:Tamie German Relation to Subscriber:Spouse Name:RUT GERMAN Date of :1950 (Home) Address: [address] [place] [address] Payer ID:[id number] (NAIC) Type:COMMERCIAL Address: [facility] [id number] [place] [id number] Advance Directives For more information, please contact: [phone] * Full Code (Latest Code Status on File) Date Activated Date Inactivated Comments 07/10/2018 6:52 AM 07/13/2018 5:43 PM Care Teams Chute Loader Relationship Specialty Start Date End Date Americo Tomlin MD PCP - General 07/10/18
--- OUTSIDE RECORDS SUMMARY | 2024-10-18 07:51 | XMS_ITS | Referral Summary ---
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 Gender Identity Not on file Sexual Orientation Not on file Last Filed Vital Signs Vital Sign Reading Time Taken Comments Blood Pressure 120/76 02/24/2024 9:13 AM CDT Pulse 71 02/24/2024 9:13 AM CDT Temperature 37.1 C (98.7 F) 07/27/2018 8:46 AM VAMP SEAMER Respiratory Rate 18 07/13/2018 12:45 PM VAMP SEAMER Oxygen Saturation 99% 02/24/2024 9:13 AM CDT Inhaled Oxygen Concentration - - Weight 70.8 kg (156 lb) 02/24/2024 9:13 AM CDT Height 162.6 cm (5' 4 ) 02/24/2024 9:13 AM CDT Body Mass Index 26.78 02/24/2024 9:13 AM CDT Plan of Treatment Not on file [place] [address] [place] [address] MEDICARE RAILROAD [facility]ROAD [facility] Advance Directives For more information, please contact: [phone] * Full Code (Latest Code Status on File) Date Activated Date Inactivated Comments 07/10/2018 6:52 AM 07/13/2018 5:43 PM Care Teams Behavior Support Specialist Relationship Specialty Start Date End Date Americo Tomlin MD PCP - General 07/10/18
--- OUTSIDE RECORDS SUMMARY | 2024-10-18 07:51 | XMS_ITS | CONTINUITY OF CARE DOCUMENT ---
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 Name Role Phone Norberto Leyva MD Unavailable [phone] Americo Tomlin MD Unavailable [phone] Americo Tomlin MD Unavailable [phone] PROBLEMS Condition Status Date Provider Notes CHEST [...] of Hypertension: completed - Norberto Leyva MD Varicose veins active Kerrie Zhang Acute DVT of R popliteal vein active Shahbaz Davila Venous insufficiency active Norberto Leyva MD Hx of ANEMIA active Wei Ferreira Tobacco use, quit active Wei Ferreira Hiatal hernia active Norberto Leyva MD Preop exam active Norberto Leyva MD ENCOUNTERS Date Type Provider Location Encounter Diag nosis - In-person encounter Office Visit Norberto Leyva MD [facility] Preop exam - In-person encounter Office Visit Norberto Leyva MD [facility] Hiatal hernia - In-person encounter Office Visit Norberto Leyva MD [facility] CHEST PAINSHORTNESS OF BREATHCAD S/P LAD STENT 04/2009PVC'sHypertensionRUQ PAINSVTFamily History of Hypertension:Acute DVT of R popliteal veinVenous insufficiencyHx of ANEMIATobacco use, quit - In-person encounter Office Visit Norberto Leyva MD [facility] Varicose veins - In-person encounter Office Visit Norberto Leyva MD [facility] - In-person encounter Office Visit Norberto Leyva MD [facility] - In-person encounter Office Visit Norberto Leyva MD [facility] SVT - In-person encounter Office Visit Norberto Leyva MD [facility] - In-person encounter Office Visit Norberto Leyva MD [facility] - In-person encounter Office Visit Norberto Leyva MD [facility] - In-person encounter Office Visit Norberto Leyva MD [facility] - In-person encounter Office Visit Norberto Leyva MD [facility] PVC's - In-person encounter Office Visit Norberto Leyva MD [facility] - In-person encounter Office Visit Norberto Leyva MD [facility] - In-person encounter Office Visit Norberto Leyva MD [facility] Hypercholesterolemia, mixedHYPOTHYROIDISMSHORTNESS OF BREATH VITAL SIGNS [...] blood pressure, cuff size regular Ke rri Caesaryohanacatherineelizabeths[facility] blood pressure, diastolic 77 mm[Hg] Ke rri [facility] blood pressure, systolic 127 mm[Hg] Dee ri [facility] oxygen saturation, oximetry 96 % Cori Omid respiratory rate E&M 18 /min Cori davis pulse rate 83 /min Cori Pramod [facility] weight E&M 168 [lb_av] Cori Rodrigueze [...] navarrete Orellana blood pressure, diastolic 82 mm[Hg] [employer] Orellana blood pressure, systolic 139 mm[Hg] [facility] oxygen saturation, oximetry 96 % [facility] respiratory rate E&M 14 /min [facility] pulse rate 77 /min [facility] weight E&M 167 [lb_av] [facility] height E&M 64 [in_i] [facility] Body Mass Index (Ratio) 27.98 kg/m2 Anea ivette [facility] blood pressure, diastolic, left arm 78 mm [Hg] Aneatris [facility] blood pressure, systolic, left arm 118 mm [Hg] Aneatris [facility] blood pressure, diastolic, right arm 82 m m[Hg] Aneatris [facility] blood pressure, systolic, right arm 134 m m[Hg] Aneatris [facility] blood pressure, diastolic 78 mm[Hg] An eatris [facility] blood pressure, systolic 118 mm[Hg] Ane atris [facility] pulse rate 80 /min [facility] saturation, oximetry 96 % Nohemiatris [facility] respiratory rate E&M 18 /min Aneatri s [facility] weight E&M 163 [lb_av] Nohemiatropal [facility] Body Mass Index (Ratio) 27.56 kg/m2 Zaheer [...] Nichole weight E&M 160 [lb_av] [facility] Body Mass Index (Ratio) 27.25 kg/m2 Clyde ar [facility] blood pressure, diastolic, left arm 86 mm [Hg] [facility] blood pressure, systolic, left arm 126 mm [Hg] [facility] blood pressure, diastolic, right arm 72 m m[Hg] [facility] blood pressure, systolic, right arm 124 m m[Hg] [facility] blood pressure, diastolic 72 mm[Hg] [facility] blood pressure, systolic 124 mm[Hg] Osbaldo [facility] pulse rate 85 /min [facility] oxygen saturation, oximetry 97 % [facility] respiratory rate E&M 16 /min [facility] weight E&M 158.2 [lb_av] [facility] height E&M 64 [in_i] [facility] blood pressure, diastolic, left arm 88 [...] larry BarrettTom pulse rate 84 /min [facility] oxygen saturation, oximetry 97 % [facility] respiratory rate E&M 16 /min Za fung weight E&M 192 [lb_av] [facility] blood pressure, diastolic, left arm 92 mm [Hg] [facility] blood pressure, systolic, left arm 128 mm [Hg] [facility] blood pressure, diastolic, right arm 81 m m[Hg] Davonte [place] blood pressure, systolic, right arm 125 m m[Hg] Davonte [place] blood pressure, diastolic 81 mm[Hg] Genevieve garza [facility] blood pressure, systolic 125 mm[Hg] Osbaldo valdez [facility] pulse rate 90 /min [facility] oxygen saturation, oximetry 96 % [facility] respiratory rate E&M 16 /min Davonte [facility] weight E&M 207 [lb_av] [facility] blood pressure, diastolic, left arm 94 [...] RN oxygen saturation, oximetry 120 % Magen Igancio RN respiratory rate E&M 20 /min Magen combs RN weight E&M 209 [lb_av] Magen Ignacio RN ALLERGIES Allergy Name Onset Date Reaction Criticality Status CRESTOR trouble sleeping , upper abd pain, mood swings Low Criticality active LIPITOR muscle aches Low Criticality active RESULTS Date Observation Value Provider Reference Range Interpretation Location LDL cholesterol, serum 88 mg/dL Norberto Leyva MD platelet count 236 10*3/uL [facility] red blood cell distribution width 13.0 % [facility] mean corpuscular hemoglobin concentration, RBC 33.2 g/dL [facility] mean corpuscular hemoglobin, RBC 30.8 pg [facility] mean corpuscular volume, RBC 92.9 fL [facility] hematocrit, blood 39.2 % [facility] hemoglobin, blood 13.0 g/dL [facility] erythrocyte (RBC) count 4.22 10*6/mm3 [facility] leukocyte count, blood 5.3 10*3/mm3 [facility] protein, total, serum 7.9 g/dL [facility] albumin, serum 4.2 g/dL [facility] bilirubin, serum, total 0.70 mg/dL [facility] alkaline phosphatase, serum 84 1/L [facility] alanine aminotransferase (SGPT), serum 35 1/L [facility] aspartate aminotransferase (SGOT), serum 24 1/L [facility] calcium, serum 9.0 mg/dL [facility] blood glucose, random 140 mg/dL [facility] creatinine, serum 0.78 mg/dL [facility] urea nitrogen, blood 22 mg/dL [facility] carbon dioxide, serum, total 26 mmol/L [facility] chloride, serum 106 mmol/L [facility] potassium, serum 3.7 mmol/L [facility] sodium, serum 143 mmol/L [facility] LDL cholesterol, serum 73 mg/dL [facility] LDL cholesterol, serum 157 mg/dL [facility] cholesterol, serum 248 mg/dL [facility] lipoprotein, beta, serum, point, quantitative, calculated 215 mg/dL [facility] cholesterol, serum 312 mg/dL [facility] thyroid stimulating hormone, serum 1.300 u[IU]/mL [facility] platelet count 266 10*3/mm3 [facility] hematocrit, blood 43.5 % [facility] alanine aminotransferase (SGPT), serum 22 1/L [facility] aspartate aminotransferase (SGOT), serum 25 1/L [facility] creatinine, serum 0.85 mg/dL [facility] potassium, serum 4.4 mmol/L [facility] sodium, serum 141 mmol/L [facility] c-reactive protein, quantitative, serum 1.0 mg/L [employer] [...] [employer] <1000 High LDL/HDL ratio, serum 2.4 [facility] triglyceride, serum, fasting 220 mg/dL [facility] HDL cholesterol, serum 50 mg/dL [facility] LDL cholesterol, serum 118 mg/dL [facility] cholesterol, serum 212 mg/dL [facility] platelet count 267 10*3/uL [facility] red blood cell distribution width 12.8 % [facility] mean corpuscular hemoglobin concentration, RBC 32.8 g/dL [facility] mean corpuscular hemoglobin, RBC 31.1 pg [facility] mean corpuscular volume, RBC 95 fL [facility] hematocrit, blood 40.9 % [facility] hemoglobin, blood 13.4 g/dL [facility] erythrocyte (RBC) count 4.31 10*6/mm3 [facility] monocyte count, blood 0.3 10*3/mm3 [facility] lymphocyte count, blood 1.3 10*3/mm3 [facility] monocytes as percent of blood leukocytes 7 % [facility] lymphocytes as percent of blood leukocytes 33 % [facility] leukocyte count, blood 3.9 10*3/mm3 [facility] vitamin D 25-hydroxy, serum 30 ng/mL [facility] albumin/globulin ratio, serum 1.1 [facility] protein, total, serum 8.1 g/dL [facility] albumin, serum 4.3 g/dL [facility] bilirubin, serum, total 0.3 mg/dL [facility] alkaline phosphatase, serum 73 1/L [facility] alanine aminotransferase (SGPT), serum 19 1/L [facility] aspartate aminotransferase (SGOT), serum 22 1/L [facility] calcium, serum 9.5 mg/dL [facility] blood glucose, fasting 79 mg/dL [facility] creatinine, serum 0.77 mg/dL [facility] urea nitrogen, blood 18 mg/dL [facility] carbon dioxide, serum, total 25 mmol/L [facility] chloride, serum 103 mmol/L [facility] potassium, serum 4.2 mmol/L [facility] sodium, serum 139 mmol/L [facility] globulins, serum, total 3.9 g/dL [facility] B-12, serum 302 pg/mL [facility] folate, serum 9.7 ng/mL [facility] thyroxine, serum, free 1.08 ng/dL [facility] thyroid stimulating hormone, serum 1.800 u[IU]/mL [facility] Estimated Glomerular Filtration Rate (calc) >59 [facility] thyroid stimulating hormone, serum 1.115 u[IU]/mL [facility] cholesterol/HDL ratio, serum 3.7 [facility] triglyceride, serum, fasting 137 mg/dL [facility] HDL cholesterol, serum 46 mg/dL [facility] LDL cholesterol, serum 86 mg/dL [facility] cholesterol, serum 170 mg/dL [facility] globulins, serum, total 4.3 g/dL [facility] estimated glomerular filtration rate 77.5 mL/min [facility] albumin/globulin ratio, serum 0.8 [facility] protein, total, serum 7.9 g/dL [facility] albumin, serum 3.8 g/dL [facility] bilirubin, serum, total 0.3 mg/dL [facility] alkaline phosphatase, serum 62 1/L [facility] alanine aminotransferase (SGPT), serum 20 1/L [facility] aspartate aminotransferase (SGOT), serum 22 1/L [facility] calcium, serum 10.0 mg/dL [facility] blood glucose, fasting 82 mg/dL [facility] creatinine, serum 0.8 mg/dL [facility] urea nitrogen, blood 18 mg/dL [facility] carbon dioxide, serum, total 32 mmol/L [facility] chloride, serum 107 mmol/L [facility] potassium, serum 4.4 mmol/L [facility] sodium, serum 144 mmol/L [facility] platelet count 271 10*3/uL [facility] red blood cell distribution width 14.5 % [facility] mean corpuscular hemoglobin concentration, RBC 33.7 g/dL [facility] mean corpuscular hemoglobin, RBC 31.6 pg [facility] mean corpuscular volume, RBC 93.9 fL [facility] hematocrit, blood 38.9 % [facility] hemoglobin, blood 13.1 g/dL [facility] erythrocyte (RBC) count 4.1 10*6/mm3 [facility] neutrophils, segmented as percent of blood leukocytes 2.6 % [facility] monocyte count, blood 0.2 10*3/mm3 [facility] lymphocyte count, blood 1.2 10*3/mm3 [facility] neutrophils as percent of blood leukocytes 65.5 % [facility] monocytes as percent of blood leukocytes 4.6 % [facility] lymphocytes as percent of blood leukocytes 29.9 % [facility] leukocyte count, blood 3.9 10*3/mm3 [facility] platelet count 329 10*3/uL [facility] red blood cell distribution width 15.8 % [facility] mean corpuscular hemoglobin concentration, RBC 33.2 g/dL [facility] mean corpuscular hemoglobin, RBC 28.6 pg [facility] mean corpuscular volume, RBC 86 fL [facility] hematocrit, blood 35.1 % [facility] hemoglobin, blood 11.6 g/dL [facility] erythrocyte (RBC) count 4.06 10*6/mm3 [facility] monocyte count, blood 0.3 10*3/mm3 [facility] lymphocyte count, blood 1.6 10*3/mm3 [facility] monocytes as percent of blood leukocytes 5 % [facility] lymphocytes as percent of blood leukocytes 28 % [facility] leukocyte count, blood 5.6 10*3/mm3 [facility] albumin/globulin ratio, serum 0.6 [facility] protein, total, serum 8.0 g/dL [facility] albumin, serum 3.1 g/dL [facility] bilirubin, serum, total 0.20 mg/dL [facility] alkaline phosphatase, serum 87 1/L [facility] alanine aminotransferase (SGPT), serum 36 1/L [facility] aspartate aminotransferase (SGOT), serum 20 1/L [facility] calcium, serum 9.0 mg/dL [facility] blood glucose, fasting 92 mg/dL [facility] creatinine, serum 1.02 mg/dL [facility] urea nitrogen, blood 14 mg/dL [facility] carbon dioxide, serum, total 33 mmol/L [facility] chloride, serum 106 mmol/L [facility] potassium, serum 4.6 mmol/L [facility] sodium, serum 139 mmol/L [facility] triglyceride, serum, fasting 183 mg/dL [facility] HDL cholesterol, serum 38 mg/dL [facility] LDL cholesterol, serum 101 mg/dL [facility] cholesterol, serum 176 mg/dL [facility] thyroid stimulating hormone, serum 1.41 u[IU]/mL [facility] platelet count 267 10*3/uL [facility] red blood cell distribution width 14.3 % [facility] mean corpuscular hemoglobin concentration, RBC 30.5 g/dL [facility] mean corpuscular hemoglobin, RBC 28.[address] [facility] mean corpuscular volume, RBC 93.[address] [facility] hematocrit, blood 39.3 % [facility] hemoglobin, blood 12.0 g/dL [facility] erythrocyte (RBC) count 4.21 10*6/mm3 [facility] monocytes as percent of blood leukocytes 8.7 % [facility] lymphocytes as percent of blood leukocytes 31.0 % [facility] leukocyte count, blood 5.1 10*3/mm3 [facility] HISTORY OF MEDICATION USE Medication Status Instructions [...] E-400 CAPSULE completed 1 tab daily - Croi Anne VITAMIN C 1000 MG ORAL TABLET [...] Cori Anne alcohol use no Cori Benavidez [facility] caffeine use, averag e drinks per day 0 /d Cori Anne drug use none Cori Benavidez sinan passive cigarette sm stefan exposure yes Cori Fri[place]rie smoking, year quit 2006 Cori Maynardnoel swain number of years as a smoker 10+ Norberto Leyva MD cigarette use yes Cori alfonso smoking status Former smoker Cori johnsonkaden number of years as a smoker 10+ years [facility] smoking, year quit 2006 [facility] cigarette use yes [facility] social history reviewed E&M revi ewed - no changes required [facility] social history E&M Marital Statu s: [place] with family/friends E thnicity: Smoking History: Jesus Alberto parekh is a former smoker. [facility] exercise type walking, Wii, ex ercise bands [facility] physical exercise, f requency, days per week 7 /wk [facility] alcohol use, average drinks per day none [facility] alcohol use no [facility] caffeine use, averag e drinks per day 0 /d [facility] drug use none [facility] passive cigarette sm stefan exposure yes [facility] smoking status Former smoker Norberto Leyva [...] Katzacojesus alberto smoking history, tot al pack/year [id number] Davonte Manacojesus alberto smoking, year quit 2006 [...] type Yesenia garcia ID [employer]IC[employer] Medicare [id number] [facility] [id number] Other [id number] ADVANCE DIRECTIVES Name Date DISCUSSED - NO [...] Tabs (Levothyroxine sodium) ..... One tab. daily [facility] Cardiology:LDL: 73 ( 12/28/2016) Her updated medication list for this problem includes: Atorvastatin Calcium 40 Mg Tabs (Atorvastatin calcium) ..... 1 tab daily [facility] Cardiology:BP today: 142/80 P rior BP: 139/82 (12/11/2016) [facility] Cardiology:Myoview s can was normal. The following medications were removed from the medication list: Plavix 75 Mg Tabs (Clopidogrel bisulfate) ..... Daily Her updated medication list for this problem includes: Nitroglycerin 0.4 Mg Subl (Nitroglycerin) ..... Use as directed. [facility] Cardiology:Duplex to day shows acute DVT of the R popliteal vein and bilateral venous insufficiency. [facility] Cardiology:The pt johnson d a recent admission for chest pain. MA was ruled out and she was released. Myoview scan was normal. Duplex today shows acute DVT of the R popliteal vein. Will obtain CT to assess for possible pulmonary embolism. [facility] Cardiology:Duplex to day shows acute DVT of the R popliteal vein and bilateral venous insufficiency. Will start Xarelto 15mg BID for 3 weeks followed by 20mg daily. [facility] Cardiology:Echo reordered. Emeterio teresa Zhang Cardiology:Patient [...] is 79% which is within normal limits. [facility] (06/23/2008) C ardiac Cath: Severe coronary artery disease with 90% of the mid left anterior descending, 70 to 80% stenosis of the proximal right femoral artery and 80% stenosis of the lower division of the obtuse marginal branch. Moderate disease of the mid to distal left anterior descending with 40 to 50% stenosis. Normal ejection fraction 70%. [facility] (05/01/2009) C ardiac Cath Comments: Vasovagal reaction at the beginning of the procedure and successful slenting of the mid LAD with a 2.5 x 30 mm Vision stent. Successful closure of the right groin using a 6-Tanzanian Angio-Seal closure device. [facility] (05/01/2009) C HOL: 176 (01/02/2009) LDL: 101 (01/02/2009) HDL: 38 (01/02/2009) T (01/02/2009) H gb: 11.6 (03/28/2009) HCT: 35.1 (03/28/2009) RBC: 4.06 (03/28/2009) WBC: 5.6 (03/28/2009) B UN: 14 (01/02/2009) Creat: 1.02 (01/02/2009) Glucose: 92 (01/02/2009) N a+: 139 (01/02/2009) K+: 4.6 (01/02/2009) Cl: 106 (01/02/2009) TSH: 1.41 (01/02/2009) O rders: C arotid Duplex Bilateral (CPT-56496) Norberto Leyva MD Follow-up s/p Stenti ng: [...] Prior BP: / () Orders: E KG (CPT-86118) Norberto Leyva MD cp-sob on exertion: H er updated medication list for this problem includes: Aspirin 81 Mg Tabs (Aspirin) ..... One tab. daily [facility] Calcium 600 + D/minerals Tabs (Calcium carbonate-vit d-min tabs) ..... One tab twice daily BP today: 159/85 Prior BP: / () Orders: C omplete Echo (CPT-51651) C ardiac Cath - GC (*) Norberto [...] tatus EKG Norberto Leyva MD completed SNOMED-CT: [id number] Current Medications Documented Norberto Leyva MD completed SNOMED-CT: [id number] Current Medications Documented Norberto Leyva MD completed Stress EKG Irina Baird MD complet ed Cardiolite, 2 units Norberto Leyva MD c ompleted SPECT Images Irina Baird MD compl eted EKG Norberto Leyva MD completed SNOMED-CT: [id number] Current Medications Documented Norberto Leyva MD completed EKG Norberto Leyva MD completed EKG Norberto Leyva MD completed ePrescribe - Check t his box if eRx is used Norberto Leyva MD completed EKG Norberto Leyva MD completed EKG Norberto Leyva MD completed EKG Norberto Leyva MD completed EKG Magen Ignacio RN completed
--- NOTE | 2024-10-18 08:14 | ECG_ITS ---
Test Date: 2024-10-18 08:37:31 Measurements Intervals [place] Rate: 85 P: 55 CT: 130 QRS: 0 QRSD: 73 T: 20 QT: 347 QTc: 415 Interpretive Statements SINUS RHYTHM LOW QRS VOLTAGE IN PRECORDIAL LEADS [QRS DEFLECTION < 1.0 mV IN CHEST LEADS] BORDERLINE ECG+ No previous ECG available for comparison Electronically Signed On 10-18-2024 15:37:06 CDT by Cole Paniagua M.D.
[2024-10-18] MEDS: ALBUTEROL SULFATE NEB 2.5 MG/3 ML INH 5 MG INHALATION (08:27)
[2024-10-18 08:44] LABS: Basophils Percent Auto 0.5 % (0.2-1.2); Eosinophils Absolute Auto 0.1 K/mm3 (0-0.3); Eosinophils Percent Auto 2.1 % (0-4.4); Hemoglobin 12.6 g/dL (12.0-15.0); Immature Granulocyte Absolute 0.02 K/mm3 (0.00-0.031); Immature Granulocyte Percent A 0.5 % (0-0.5); Lymphocytes Absolute Auto 0.85 K/mm3 (0.9-3.2); Lymphocytes Percent Auto 22.8 % (18.3-44.2); Mean Corpuscular HGB Conc 32.3 g/dl (32-36); Mean Corpuscular Hemoglobin 30.8 pg (26-34); Mean Corpuscular Volume 95.4 fl (80-100); Mean Platelet Volume 9.5 fl (7.4-10.4); Monocytes Absolute Auto 0.3 K/mm3 (0.1-0.6); Monocytes Percent Auto 7.8 % (2.6-8.5); Neutrophils Absolute Auto 2.5 K/mm3 (1.3-6.7); Neutrophils Percent Auto 66.3 % (45.5-73.1); Platelet Count Result 149 k/mm3 (150-375); Red Blood Count 4.09 M/mm3 (4.2-5.4); Red Cell Distribution Width 12.5 % (11.5-14.5); White Blood Count 3.7 K/mm3 (4.5-10.0)
[2024-10-18 08:53] LABS: Alanine Aminotransferase 29 U/L (6-35); Albumin Level 4.1 g/dL (3.5-5.1); Alkaline Phosphatase 78 U/L (38-126); Anion Gap 6 mmol/L (4-12); Aspartate Amino Transferase 49 U/L (14-36); Bilirubin,Total 0.5 mg/dL (0.2-1.3); Blood Urea Nitrogen 16 mg/dL (7-17); Calcium 9.4 mg/dL (8.4-10.2); Carbon Dioxide 28 mmol/L (22-30); Chloride 104 mmol/L (98-107); Estimated CRCL calculation 55 ml/min; Estimated Glomerular Filt Rate > 60; Glucose 100 mg/dL (65-110); Potassium 3.8 mmol/L (3.4-5.0); Sodium 138 mmol/L (137-145)
[2024-10-18 09:05] LABS: NT Pro B Type Natriuretic Pept 100 pg/mL (19.9-100); Troponin I < 0.012 ng/mL (0.000-0.034)
[2024-10-18 09:20] LABS: Influenza A QL RT-PCR Negative (Negative); Influenza B QL RT-PCR Negative (Negative); RSV RNA, RT-PCR Negative (Negative); SARS-CoV-2 RNA PCR Negative (Negative)
[2024-10-18] MEDS: methylPREDNISolone SOD SUCC 125 MG VIAL IV PUSH (09:52)
[2024-10-18] MEDS: SODIUM CHLORIDE 0.9% IV 1,000 ML 999 ML IV CONT (09:52)
[2024-10-18] MEDS: ALBUTEROL SULFATE NEB 2.5 MG/3 ML INH 10 MG INHALATION (11:10)
[2024-10-18] MEDS: IPRATROPIUM BR 0.02% INH SOLN 0.5 MG/2.5 ML VIAL INHALATION (11:11)
--- NOTE | 2024-10-18 13:15 | P.HP_ITS ---
H&P: HPI History of Present Illness Date/Time: 10/18/24 13:15 Chief Complaint: Shortness of breath Narrative: 74-year-old female past medical history of GERD, hiatal hernia, CAD, DVT of right lower extremity, anemia, and hypothyroidism presents the hospital shortness of breath. Patient states that she was feeling ill last went to her PCP on Friday had a chest x-ray and was started on a Z-Bobby. She states that is not helped and she has got worse. She states that she has been coughing up green sputum. She denies history of asthma or COPD. However she does have a 4 year pack history of smoking. She denies fevers or chills. In the ED leukopenia 3.7, platelets of 149, AST 49, influenza A/B, RSV and COVID negative. Chest x-ray and CT shows no acute cardiopulmonary process no pulmonary embolism. Patient denies history of COPD, possibly could be undiagnosed COPD with exacerbation. Review of Systems Review of Systems: 12 systems were reviewed and are negativ e except for as per HPI. [facility] Past Medical History Medical History Shingles Kidney stones Hiatal hernia Gastroesophageal reflux disease Coronary artery disease Deep vein thrombosis of right lower extremity Anemia With history of blood transfusion. Hypothyroidism Hyperlipidemia Anxiety Surgical History Surgical History History of hysterectomy for benign disease History of bilateral cataract extraction History of coronary artery stent placement (~2008) x1. Family History Family History Mother Diabetes mellitus Family history of cardiovascular disease Sibling Diabetes mellitus Family history of cardiovascular disease Social History Social History Social History: Surrogate decision maker: Ac German, spouse. Code status: Full code. Smoking packs per day: 2 Smoking cigarettes per day: 40.0 Years smoked: 40 Smoking pack-years: 80.00 Smoking status: Former smoker Tobacco type: cigarettes Alcohol intake: never Substance use: never Substance use type: does not use Do You Feel Safe in your Home?: Yes Lack of Transportation: No Lack of Food: Never True Current Housing: I Have Housing Concerned About Future Housing: No Difficulty Paying Gas/Electric Bills: No Difficulty Paying for Meds: No Currently Unemployed: No Education: High School Diploma/GED Difficulty w/ Childcare or Family Care: No Additional living arrangements comments: Resides with her in [place]. 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 Gender identity (if verbalized by the patient): Female Spiritual care concerns: No Meds Home Medications and Allergies Home Medications ?Medication ?Instructions ?Recorded ?Confirmed ?Type atorvastatin 40 mg tablet 40 mg PO DAILY 10/28/19 10/18/24 History levothyroxine 50 mcg tablet 50 mcg PO DAILY 10/28/19 10/18/24 History sertraline 100 mg tablet 100 mg PO DAILY 10/28/19 10/18/24 History nitroglycerin 0.4 mg sublingual 0.4 mg sublingual Q5-15M PRN Chest 04/17/20 10/18/24 History tablet Pain Saccharomyces boulardii 250 mg 250 mg PO BID #30 caps 04/22/20 10/18/24 Rx capsule (Florastor) fluticasone propionate 50 2 spray intranasal QAM #9.9 mL 04/22/20 10/18/24 Rx mcg/actuation nasal spray,suspension cholecalciferol (vitamin D3) 10 10 mcg PO DAILY 10/18/24 10/18/24 History mcg (400 unit) capsule (Vitamin D3) diclofenac sodium 1 % topical gel 2 g topical QID PRN arthritis pain 10/18/24 10/18/24 History (Arthritis Pain (diclofenac)) docusate sodium 100 mg capsule 100 mg PO DAILY PRN constipation 10/18/24 10/18/24 History (Colace) Allergies Allergy/AdvReac Type Severity Reaction Status Date / Time rosuvastatin Allergy Unknown Anxiety Verified 10/18/24 07:20 Vital Signs Vital Signs - 24 hr 10/18/24 07:27 10/18/24 07:53 10/18/24 08:28 Temperature 99.3 F Pulse Rate 107 H 84 Respiratory Rate 20 20 Blood Pressure Pulse Oximetry 93 94 Oxygen Delivery Room Air Room Air 10/18/24 08:44 10/18/24 08:57 10/18/24 09:11 Temperature Pulse Rate 100 73 106 H Respiratory Rate 22 H 22 H 18 Blood Pressure 119/50 L Pulse Oximetry 94 95 Oxygen Delivery 10/18/24 09:15 10/18/24 09:30 10/18/24 10:31 Temperature Pulse Rate 104 H 100 93 Respiratory Rate 20 17 20 Blood Pressure Pulse Oximetry 92 92 92 Oxygen Delivery 10/18/24 10:32 10/18/24 10:45 10/18/24 10:46 Temperature Pulse Rate 93 86 93 Respiratory Rate 20 27 H 20 Blood Pressure 118/58 L 115/47 L Pulse Oximetry 92 93 94 Oxygen Delivery 10/18/24 11:17 10/18/24 11:21 10/18/24 11:30 Temperature Pulse Rate 107 H 104 H 93 Respiratory Rate 20 28 H 20 Blood Pressure Pulse Oximetry 100 100 Oxygen Delivery 10/18/24 12:20 10/18/24 12:23 Temperature Pulse Rate 116 H 119 H Respiratory Rate 25 H Blood Pressure 136/56 L Pulse Oximetry 98 Oxygen Delivery Exam Narrative: General: well appearing, appears stated age. HEENT: normocephalic, atraumatic. Mucous membranes moist. EOMI, PERRLA, bilateral sclera anicteric, no conjunctival injection. Neck supple without JVD, lymphadenopathy, or bruit. Respiratory: Audible wheezes to ascultation bilaterally. No rales/rhonic/whee zes. Cardiovascular: Regular rate and rhythm, normal S1-S2 upon ascultation. No murmurs, rubs, or clicks. PMI is nondisplaced, capillary refill less than 3 second. Abdomen: Soft, round, no pulsatile masses, nondistended and nontender. No rebound, no guarding. No CVA tenderness, no hepatosplenomegaly. Bowel sounds present to all four quadrants. No high pitch or tinkling sounds, resonant to percussion. Extremities: No cyanosis, clubbing, or edema present. Pulses are palpable 2/2. Active ROM to all four extremities. Neuro: Alert and orientated x 4. PERRLA. Cranial nerves 2-12 intact without focal deficit. Skin: Warm, dry, and intact, without rash, erythema, or lesion. Psych: pleasant, cooperative, normal speech, normal affect, no hallucinations, no dysarthia H&P: Results Labs Labs: Short CBC 10/18/24 Range/Units 08:35 WBC 3.7 L (4.5-10.0) K/mm3 Hgb 12.6 (12.0-15.0) g/dL Hct 39.0 (37.0-47.0) % Plt Count 149 L (150-375) k/mm3 BMP 10/18/24 08:35 Sodium 138 Potassium 3.8 Chloride 104 Carbon Dioxide 28 BUN 16 Creatinine 0.70 Glucose 100 Calcium 9.4 Cardiac Enzymes 10/18/24 Range/Units 08:35 Troponin I < 0.012 (0.000-0.034) ng/mL Liver Function 10/18/24 Range/Units 08:35 Total Bilirubin 0.5 (0.2-1.3) mg/dL AST 49 H (14-36) U/L ALT 29 (6-35) U/L Alkaline Phosphatase 78 (38-126) U/L Albumin 4.1 (3.5-5.1) g/dL Assessment and Plan Assessment and plan (1) Hypoxia: Code(s): R09.02 - Hypoxemia Status: Resolved Assessment and Plan: No acute process on chest x-ray or CT scan, likely undiagnosed COPD with exacerbation Albuterol, Solu-Medrol and azithromycin given in ED Pulmonary consult Daily prednisone, Augmentin Xopenex q.4 (2) Tachycardia: Code(s): R00.0 - Tachycardia, unspecified Status: Acute Assessment and Plan: Likely due to high doses of albuterol switched to Xopenex Repeat EKG (3) Hyperlipidemia: Qualifiers: Hyperlipidemia type: unspecified Qualified Code(s): E78.5 - Hyperlipidemia, unspecified Code(s): E78.5 - Hyperlipidemia, unspecified Status: Chronic Assessment and Plan: Restart Lipitor (4) Hypothyroidism: Qualifiers: Hypothyroidism type: unspecified Qualified Code(s): E03.9 - Hypothy roidism, unspecified Code(s): E03.9 - Hypothyroidism, unspecified Status: Chronic Assessment and Plan: Restart Synthroid Quality VTE Prophylaxis VTE prophylaxis: mechanical ordered Hospitalist MIPS Advance Care Plan I have confirmed that the patient's Advanced Care Plan is present, code status is documented, or surrogate decision maker is listed in patient medical record.: Yes Medication Reconciliation I have utilized all available resources to obtain, update and review the patients current medications (includes all prescriptions, OTC, herbals, cannabis, and nutritional supplements).: Yes
[2024-10-18] MEDS: AZITHROMYCIN 500 MG/NS 250 ML 500 MG/250 ML BAG 250 MG IVPB (13:35)
--- NOTE | 2024-10-18 13:39 | PC.NURSE ---
Meal tray ordered for pt.
[2024-10-18] MEDS: LEVALBUTEROL NEB 1.25 MG/3 ML 0.63 MG INHALATION ×2 (13:49→19:56)
--- NOTE | 2024-10-18 13:50 | ECG_ITS ---
Test Date: 2024-10-18 15:14:32 Measurements Intervals [place] Rate: 114 P: 56 VT: 140 QRS: -1 QRSD: 82 T: 2 QT: 342 QTc: 473 Interpretive Statements SINUS TACHYCARDIA LOW QRS VOLTAGE IN PRECORDIAL LEADS [QRS DEFLECTION < 1.0 mV IN CHEST LEADS] NONSPECIFIC ST & T-WAVE ABNORMALITY ABNORMAL RHYTHM ECG Compared to ECG 10/18/2024 08:37:[address] SEGMENT ABNORMALITY IS NOW SEEN Electronically Signed On 10-18-2024 15:53:34 CDT by Cole Paniagua M.D.
[2024-10-18] MEDS: KETOROLAC 15 MG/ML VIAL (*BKC) IV PUSH ×2 (15:21→22:07)
--- NOTE | 2024-10-18 16:19 | ADMGEN ---
This patient, Tamie German, was admitted to 3 Med Surg Room 313-01. Patient/family oriented to hospital policies and general routines including ID bracelet, bed and alarms, visiting hours, pain management, procedures, bathroom and other care routines, personal items, smoking policy, room service/diet, and visiting hours. Information on how to activate the Rapid Response Team has been discussed. Patient/Family are encouraged to report perceived risks to care and to ask questions if they do not understand what they are told or what they should do.
[2024-10-18] MEDS: AMOXICILLIN/CLAVULANATE K 875-125 MG TAB 1 TABLET PO (17:32)
[2024-10-18] MEDS: methocarbamoL 500 MG TABLET PO (20:37)
[2024-10-18] MEDS: guaiFENesin/DEXTROMETHORPHAN 10 ML UDC PO (20:37)
[2024-10-18] MEDS: SERTRALINE HCL 50 MG TABLET 100 MG PO (20:49)
[2024-10-19] VITALS (21 sets, daily range): BP systolic 112–140; BP diastolic 49–73; PULSE 73–99; RESP 14–20; TEMP 36.4–36.9; O2SAT 91–100
[2024-10-19] MEDS: LEVALBUTEROL NEB 1.25 MG/3 ML 0.63 MG INHALATION ×6 (02:40→23:38)
[2024-10-19] MEDS: guaiFENesin/DEXTROMETHORPHAN 10 ML UDC PO ×5 (06:02→21:40)
[2024-10-19] MEDS: LEVOTHYROXINE SODIUM 50 MCG TABLET PO (06:02)
[2024-10-19 06:22] LABS: Basophils Percent Auto 0.2 % (0.2-1.2); Eosinophils Percent Auto 0.2 % (0-4.4); Hematocrit 35.6 % (37.0-47.0); Hemoglobin 11.3 g/dL (12.0-15.0); Immature Granulocyte Absolute 0.01 K/mm3 (0.00-0.031); Immature Granulocyte Percent A 0.2 % (0-0.5); Lymphocytes Absolute Auto 1.31 K/mm3 (0.9-3.2); Lymphocytes Percent Auto 28.5 % (18.3-44.2); Mean Corpuscular HGB Conc 31.7 g/dl (32-36); Mean Corpuscular Volume 97.8 fl (80-100); Mean Platelet Volume 9.8 fl (7.4-10.4); Monocytes Absolute Auto 0.4 K/mm3 (0.1-0.6); Monocytes Percent Auto 8.5 % (2.6-8.5); Neutrophils Absolute Auto 2.9 K/mm3 (1.3-6.7); Neutrophils Percent Auto 62.4 % (45.5-73.1); Platelet Count Result 152 k/mm3 (150-375); Red Blood Count 3.64 M/mm3 (4.2-5.4); Red Cell Distribution Width 12.7 % (11.5-14.5); White Blood Count 4.6 K/mm3 (4.5-10.0)
[2024-10-19 06:33] LABS: Anion Gap 5 mmol/L (4-12); Blood Urea Nitrogen 20 mg/dL (7-17); Calcium 8.9 mg/dL (8.4-10.2); Carbon Dioxide 29 mmol/L (22-30); Chloride 107 mmol/L (98-107); Estimated CRCL calculation 59 ml/min; Estimated Glomerular Filt Rate > 60; Glucose 87 mg/dL (65-110); Sodium 141 mmol/L (137-145)
[2024-10-19] MEDS: AMOXICILLIN/CLAVULANATE K 875-125 MG TAB 1 TABLET PO ×2 (07:53→17:58)
[2024-10-19] MEDS: predniSONE 20 MG TABLET 40 MG PO (07:53)
[2024-10-19] MEDS: SACCHAROMYCES BOULARDII 250 MG CAPSULE PO ×2 (07:53→17:58)
[2024-10-19] MEDS: ATORVASTATIN 40 MG TABLET PO (07:53)
[2024-10-19] MEDS: methocarbamoL 500 MG TABLET PO ×4 (07:53→21:40)
[2024-10-19] MEDS: traMADol HCL (*CRX) 50 MG TABLET PO ×2 (14:12→21:42)
--- NOTE | 2024-10-19 15:42 | P.PNIM_ITS ---
Progress Note: A&P Assessment and Plan (1) Hypoxia: Code(s): R09.02 - Hypoxemia Status: Resolved Assessment and Plan: No acute process on chest x-ray or CT scan, likely undiagnosed COPD with exacerbation Albuterol, Solu-Medrol and azithromycin given in ED Pulmonary consult Daily prednisone, Augmentin Xopenex q.4 (2) Tachycardia: Code(s): R00.0 - Tachycardia, unspecified Status: Acute Assessment and Plan: Likely due to high doses of albuterol switched to Xopenex Repeat EKG (3) Hyperlipidemia: Qualifiers: Hyperlipidemia type: unspecified Qualified Code(s): E78.5 - Hyperlipidemia, unspecified Code(s): E78.5 - Hyperlipidemia, unspecified Status: Chronic Assessment and Plan: Restart Lipitor (4) Hypothyroidism: Qualifiers: Hypothyroidism type: unspecified Qualified Code(s): E03.9 - Hypothyroidism, unspecified Code(s): E03.9 - Hypothyroidism, unspecified Status: Chronic Assessment and Plan: Restart Synthroid Plan patient with history of smoking in the past, presented with shortness of breath suspect patient may have COPD and was started on methylprednisone,and updraft, also was given zithromax to cover for atypicals. patient stats feeling much better not as short of breath as when she arrived, patient clinical symptoms are improving, will monitor and discharge the patient in the morning. Subjective Date/time seen: 10/19/24 15:42 Interval history: Shortness of breath H&P-Narrative: 74-year-old female past medical history of GERD, hiatal hernia, CAD, DVT of right lower extremity, anemia, and hypothyroidism presents the hospital shortness of breath. Patient states that she was feeling ill last went to her PCP on Friday had a chest x-ray and was started on a Z-Bobby. She states that is not helped and she has got worse. She states that she has been coughing up green sputum. She denies history of asthma or COPD. However she does have a 4 year pack history of smoking. She denies fevers or chills. In the ED leukopenia 3.7, platelets of 149, AST 49, influenza A/B, RSV and COVID negative. Chest x-ray and CT shows no acute cardiopulmonary process no pulmonary embolism. Patient denies history of COPD, possibly could be undiagnosed COPD with exacerbation. patient with history of smoking in the past, presented with shortness of breath suspect patient may have COPD and was started on methylprednisone,and updraft, also was given zithromax to cover for atypicals. patient stats feeling much better not as short of breath as when she arrived, patient clinical symptoms are improving, will monitor and discharge the patient in the morning. Review of Systems Review of Systems: 12 systems were reviewed and are negativ e except for as per HPI. Exam Narrative: Patient is comfortable, NAD HEENT: eyes are clear and none icteric LUNGS: Bilateral fair entry with wheezing and rhonchi HEART: RR S1S2 ABD: BS+, Soft and nontender Lower extremities: no edema SKIN: nonjaundiced Neuro: grossly intact. Objective Data Vital Signs Vital Signs: Vital Signs - 24 hr 10/18/24 16:10 10/18/24 16:43 10/18/24 19:56 Temperature 36.8 C Pulse Rate 112 H 92 Respiratory Rate 22 H 20 Blood Pressure 125/54 L Pulse Oximetry 96 Oxygen Delivery Room Air Fraction of Inspired Oxygen 10/18/24 20:00 10/18/24 20:00 10/18/24 20:04 Temperature Pulse Rate 92 100 95 Respiratory Rate 20 Blood Pressure Pulse Oximetry 92 Oxygen Delivery Room Air Fraction of Inspired Oxygen 21 10/18/24 21:21 10/18/24 23:16 10/19/24 02:40 Temperature 36.7 C Pulse Rate 99 88 99 Respiratory Rate 12 20 Blood Pressure 122/42 L Pulse Oximetry 93 Oxygen Delivery Fraction of Inspired Oxygen 10/19/24 02:48 10/19/24 03:35 10/19/24 05:21 Temperature 36.4 C Pulse Rate 96 78 92 Respiratory Rate 20 14 Blood Pressure 112/49 L Pulse Oximetry 91 Oxygen Delivery Fraction of Inspired Oxygen 10/19/24 08:00 10/19/24 08:00 10/19/24 08:02 Temperature Pulse Rate 80 80 78 Respiratory Rate 18 18 Blood Pressure Pulse Oximetry 92 Oxygen Delivery Room Air Fraction of Inspired Oxygen 21 10/19/24 08:04 10/19/24 08:11 10/19/24 12:00 Temperature Pulse Rate 80 82 Respiratory Rate 18 18 Blood Pressure Pulse Oximetry 92 Oxygen Delivery Room Air Fraction of Inspired Oxygen 10/19/24 12:00 10/19/24 12:10 10/19/24 14:00 Temperature 36.4 C L Pulse Rate 86 82 95 Respiratory Rate 18 20 Blood Pressure 133/59 L Pulse Oximetry 93 Oxygen Delivery Fraction of Inspired Oxygen 10/19/24 15:10 10/19/24 15:15 Temperature Pulse Rate 80 80 Respiratory Rate 18 18 Blood Pressure Pulse Oximetry Oxygen Delivery Fraction of Inspired Oxygen Intake/Output Intake/Output: Intake & Output 10/16/24 10/17/24 10/18/24 10/19/24 23:59 23:59 23:59 23:59 Intake Total 1590 480 Balance 1590 480 Meds/Results Medications: Active Medications Generic Name Dose Route Start Last Admin Trade Name Freq PRN Reason Stop Dose Admin Acetaminophen 650 mg 10/18/24 20:57 Acetaminophen 325 Mg Tablet PO Q4H PRN Mild Pain (1-3) or Fever Amoxicillin/Clavulanate Potassium 1 tablet 10/18/24 17:00 10/19/24 07:53 Amoxicillin/Clavulanate K 875-125 Mg Tab PO 1 tablet BID [facility] Administration Atorvastatin Calcium 40 mg 10/19/24 09:00 10/19/24 07:53 Atorvastatin 40 Mg Tablet PO 40 mg DAILY BEAN Administration Docusate Sodium 100 mg 10/18/24 19:48 Docusate Sodium 100 Mg Capsule PO DAILY PRN constipation Guaifenesin/Dextromethorphan 10 ml 10/18/24 19:40 10/19/24 14:14 Guaifenesin/Dextromethorphan 10 Ml Udc PO 10 ml Q4HR BEAN Administration Levalbuterol HCl 0.63 mg 10/18/24 20:00 10/19/24 15:10 Levalbuterol Neb 1.25 Mg/3 Ml INHALATION 0.63 mg Q4HRT [facility] Administration Levothyroxine Sodium 50 mcg 10/19/24 06:30 10/19/24 06:02 Levothyroxine Sodium 50 Mcg Tablet PO 50 mcg DAILY@0630 [facility] Administration Methocarbamol 500 mg 10/18/24 21:00 10/19/24 14:12 Methocarbamol 500 Mg Tablet PO 500 mg QID [facility] Administration Nitroglycerin 0.4 mg 10/18/24 19:48 Nitroglycerin Sl 0.4 Mg Tablet SUBLINGUAL Q5MIN PRN Chest Pain Prednisone 40 mg 10/19/24 08:00 10/19/24 07:53 Prednisone 20 Mg Tablet PO 10/24/24 07:59 40 mg DAILY@0800 [facility] Administration Saccharomyces Boulardii 250 mg 10/19/24 09:00 10/19/24 07:53 Saccharomyces Boulardii 250 Mg Capsule PO 250 mg BID [facility] Administration Sertraline HCl 100 mg 10/18/24 20:45 10/18/24 22:01 Sertraline Hcl 50 Mg Tablet PO Not Given HS [facility] Tramadol HCl 50 mg 10/19/24 13:25 10/19/24 14:12 Tramadol Hcl (*Crx) 50 Mg Tablet PO 50 mg Q6H PRN Administration Pain Rated 4-6 Radiology Results: ITS Impressions Chest CTA 10/18/24 09:30 IMPRESSION: 1. No pulmonary embolism. 2. No acute cardiopulmonary pathology. 3. Borderline lymphadenopathy in the mediastinum. Labs Labs: Laboratory Results - last 24 hr 10/19/24 05:42 WBC 4.6 RBC 3.64 L Hgb 11.3 L Hct 35.6 L MCV 97.8 MCH 31.0 MCHC 31.7 L RDW 12.7 Plt Count 152 MPV 9.8 Immature Gran % (Auto) 0.2 Neut % (Auto) 62.4 Lymph % (Auto) 28.5 Peach % (Auto) 8.5 Eos % (Auto) 0.2 Baso % (Auto) 0.2 Lymph # (Auto) 1.31 [place] # (Auto) 0.4 Eos # (Auto) 0.0 Baso # (Auto) 0.0 Abs Immat Gran (auto) 0.01 Absolute Neuts (auto) 2.9 Absolute Nucleated RBC 0.000 Nucleated RBC % 0.0 Sodium 141 Potassium 4.0 Chloride 107 Carbon Dioxide 29 Anion Gap 5 BUN 20 H Creatinine 0.65 L Estim Creat Clear Calc 59 Estimated GFR > 60 Glucose 87 Calcium 8.9 Quality VTE Prophylaxis VTE prophylaxis: mechanical ordered
[2024-10-19] MEDS: SERTRALINE HCL 50 MG TABLET 100 MG PO (21:40)
[2024-10-20] VITALS (8 sets, daily range): BP systolic 139; BP diastolic 59; PULSE 75–91; RESP 16–18; TEMP 36.8; O2SAT 93
[2024-10-20] MEDS: guaiFENesin/DEXTROMETHORPHAN 10 ML UDC PO ×4 (01:14→12:08)
[2024-10-20] MEDS: LEVALBUTEROL NEB 1.25 MG/3 ML 0.63 MG INHALATION ×2 (02:46→08:07)
[2024-10-20] MEDS: LEVOTHYROXINE SODIUM 50 MCG TABLET PO (05:31)
--- NOTE | 2024-10-20 07:04 | PC.NURSE ---
Patient resting in bed w/o difficulty and has slept well throughout the shift. Pain medication was given x1 for inez rib pain r/t to cough with some relief. Cough medication given as ordered. No other complaints throughout the shift.
[2024-10-20 07:10] LABS: Hematocrit 39.4 % (37.0-47.0); Hemoglobin 12.2 g/dL (12.0-15.0); Mean Corpuscular Hemoglobin 30.5 pg (26-34); Mean Corpuscular Volume 98.5 fl (80-100); Mean Platelet Volume 9.8 fl (7.4-10.4); Platelet Count Result 219 k/mm3 (150-375); Red Cell Distribution Width 13.1 % (11.5-14.5); White Blood Count 8.2 K/mm3 (4.5-10.0)
[2024-10-20 07:26] LABS: Anion Gap 6 mmol/L (4-12); Blood Urea Nitrogen 24 mg/dL (7-17); Calcium 9.3 mg/dL (8.4-10.2); Carbon Dioxide 32 mmol/L (22-30); Chloride 104 mmol/L (98-107); Estimated CRCL calculation 46 ml/min; Estimated Glomerular Filt Rate > 60; Glucose 85 mg/dL (65-110); Magnesium 2.2 mg/dL (1.6-2.3); Potassium 3.7 mmol/L (3.4-5.0); Sodium 142 mmol/L (137-145)
[2024-10-20] MEDS: ATORVASTATIN 40 MG TABLET PO (08:24)
[2024-10-20] MEDS: traMADol HCL (*CRX) 50 MG TABLET PO (08:24)
[2024-10-20] MEDS: AMOXICILLIN/CLAVULANATE K 875-125 MG TAB 1 TABLET PO (08:24)
[2024-10-20] MEDS: predniSONE 20 MG TABLET 40 MG PO (08:24)
[2024-10-20] MEDS: methocarbamoL 500 MG TABLET PO ×2 (08:25→12:08)
[2024-10-20] MEDS: SACCHAROMYCES BOULARDII 250 MG CAPSULE PO (08:25)
--- NOTE | 2024-10-20 11:52 | P.DS_ITS ---
DS: Admitting Diagnosis Discharge Date 10/20/2024 Admitting Diagnosis shortness of breath DS: Discharge Diagnosis Discharge Diagnosis (1) Hypoxia: Code(s): R09.02 - Hypoxemia Status: Resolved Assessment and Plan: No acute process on chest x-ray or CT scan, likely undiagnosed COPD with exacerbation Albuterol, Solu-Medrol and azithromycin given in ED Pulmonary consult Daily prednisone, Augmentin Xopenex q.4 (2) Tachycardia: Code(s): R00.0 - Tachycardia, unspecified Status: Acute Assessment and Plan: Likely due to high doses of albuterol switched to Xopenex Repeat EKG (3) Hyperlipidemia: Qualifiers: Hyperlipidemia type: unspecified Qualified Code(s): E78.5 - Hyperlipidemia, unspecified Code(s): E78.5 - Hyperlipidemia, unspecified Status: Chronic Assessment and Plan: Restart Lipitor (4) Hypothyroidism: Qualifiers: Hypothyroidism type: unspecified Qualified Code(s): E03.9 - Hypothyroidism, unspecified Code(s): E03.9 - Hypothyroidism, unspecified Status: Chronic Assessment and Plan: Restart Synthroid Plan patient with history of smoking in the past, presented with shortness of breath suspect patient may have COPD and was started on methylprednisone,and updraft, also was given zithromax to cover for atypicals. patient stats feeling much better not as short of breath as when she arrived, patient clinical symptoms are improving, will monitor and discharge the patient in the morning. DS: Summary Hospital Course Hospital Course: patient with history of smoking in the past, presented with shortness of breath suspect patient may have COPD and was started on methylprednisone,and updraft, also was given Augmentin patient stats feeling much better not as short of breath as when she arrived, patient clinical symptoms are improving, will monitor and discharge the patient in the morning. patient with shortness of breath suspect 2/2 history of smoking, CXR did not show any pulmonary disease, patient was treated with steroids and Xopenex, her breathing has improved and patient is clinically stable, will discharge patient home today on tapering dose of prednisone and Doxycycline, patient to follow up with her primary care provider as soon as possible. Time Spent with Patient Time attestation: Total time spent providing and/or coordinating discharge services: Exam Narrative: Patient is comfortable, NAD HEENT: eyes are clear and none icteric LUNGS: Bilateral fair entry with wheezing and rhonchi HEART: RR S1S2 ABD: BS+, Soft and nontender Lower extremities: no edema SKIN: nonjaundiced Neuro: grossly intact. DS: Data Data Completed and Pending Labs on day of discharge: Labs from last 24 hours 10/20/24 06:39 WBC 8.2 RBC 4.00 L Hgb 12.2 Hct 39.4 MCV 98.5 MCH 30.5 MCHC 31.0 L RDW 13.1 Plt Count 219 MPV 9.8 Sodium 142 Potassium 3.7 Chloride 104 Carbon Dioxide 32 H Anion Gap 6 BUN 24 H Creatinine 0.84 Estim Creat Clear Calc 46 Estimated GFR > 60 Glucose 85 Calcium 9.3 Magnesium 2.2 Discharge Plan Discharge Attending physician on discharge: Alcides Julian Discharging Clinician: Cornelio Villa Patient Disposition: Home Activity: as tolerated Diet: heart healthy Discharge Instructions: patient to follow up with her primary care provider as soon as possible, patient is instructed if any symptoms redevelop to go to nearest ER. Patient Instructions: Antibiotic Form Patient Language: Uzbek Stand Alone Forms: General Discharge Information Follow-up/Referrals: Nabor,Americo Waterman MD [Primary Care Provider] - Discharge Medications: New tramadol 50 mg Tablet 50 mg PO Q6H PRN (Reason: Pain Rated 4-6) Qty: 15 0RF doxycycline hyclate 100 mg capsule 100 mg PO BID Qty: 14 0RF dextromethorphan-guaifenesin 10-100 mg/5 mL Syrup 10 ml PO Q4HR Qty: 237 0RF levalbuterol HCl 1.25 mg/3 mL Solution For Nebulization 0.63 mg inhalation Q4HRT Qty: 90 0RF prednisone 10 mg tablet 10 mg PO DAILY Qty: 30 0RF Rx Instructions: 4Tx3d, 3Tx3d, 2Tx3d 1Tx3d levalbuterol tartrate [Xopenex HFA] 45 mcg/actuation HFA aerosol inhaler 1 puff inhalation Q6H PRN (Reason: shortness of breath or wheezing) Qty: 15 0RF Continued atorvastatin 40 mg tablet 40 mg PO DAILY sertraline 100 mg tablet 100 mg PO DAILY levothyroxine 50 mcg tablet 50 mcg PO DAILY nitroglycerin 0.4 mg Tablet, Sublingual 0.4 mg SUBLINGUAL Q5-15M PRN (Reason: Chest Pain) fluticasone propionate 50 mcg/actuation [place],Suspension 2 spray intranasal QAM Qty: 9.9 0RF Saccharomyces boulardii [Florastor] 250 mg Capsule 250 mg PO BID Qty: 30 0RF docusate sodium [Colace] 100 mg capsule 100 mg PO DAILY PRN (Reason: constipation) cholecalciferol (vitamin D3) [Vitamin D3] 10 mcg (400 unit) capsule 10 mcg PO DAILY diclofenac sodium [Arthritis Pain (diclofenac)] 1 % gel 2 g topical QID PRN (Reason: arthritis pain) Rx Instructions: apply to single elbow, wrist or hand; for hand includes palm/fingers/back of hand Date of admission: 10/19/24 14:39 Primary Care Provider: Nabor,Americo Waterman Admitting Provider: Alcides Julian Attending physician on admission: Alcides Julian Condition: Stable
== END 2024-10-20 12:37 | disposition home or self-care (01) | DRG 192 ==
LOC: ANHED 07:48 → ANH3MEDSUR 13:58
PROVIDERS: Nurse Practitioner Gerontology; Admitting Provider Internal Medicine; Emergency Provider Emergency Medicine; PCP Internal Medicine; Visit Provider Family Medicine
DX: J44.1 Chronic obstructive pulmonary disease with (acute) exacerbation (principal); R09.02 Hypoxemia; R00.0 Tachycardia, unspecified; T48.6X5A Adverse effect of antiasthmatics, initial encounter; E78.5 Hyperlipidemia, unspecified; E03.9 Hypothyroidism, unspecified; K44.9 Diaphragmatic hernia without obstruction or gangrene; D64.9 Anemia, unspecified; K21.9 Gastro-esophageal reflux disease without esophagitis; I25.10 Atherosclerotic heart disease of native coronary artery without angina pectoris; Z87.891 Personal history of nicotine dependence; Z86.718 Personal history of other venous thrombosis and embolism; Z96.1 Presence of intraocular lens; Z98.42 Cataract extraction status, left eye; Z98.41 Cataract extraction status, right eye; Z95.5 Presence of coronary angioplasty implant and graft; Z90.710 Acquired absence of both cervix and uterus
CPT/HCPCS: 36415; 71275; 80048; 80053; 83735; 83880; 84484; 85025; 85027; 87637; 93005; 94640; 96361; 96374; 96375; 96376; 99285; A9270; G0378; J0456; J1885; J2919; J7030; J7512; Q9967

== ENCOUNTER 2024-11-29 09:16 | Outpatient (CLI) | payer MEDICARE, OTHER, SELFPAY ==
--- OUTSIDE RECORDS SUMMARY | 2024-11-29 09:43 | XMS_ITS | Clinical Summary ---
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 Gender Identity Not on file Sexual Orientation Not on file Obstetrics History Last Filed Vital Signs Vital Sign Reading Time Taken Comments Blood Pressure 120/76 02/24/2024 9:13 AM CDT Pulse 71 02/24/2024 9:13 AM CDT Temperature 37.1 C (98.7 F) 07/27/2018 8:46 AM RECOVERY RN Respiratory Rate 18 07/13/2018 12:45 PM RECOVERY RN Oxygen Saturation 99% 02/24/2024 9:13 AM CDT Inhaled Oxygen Concentration - - Weight 70.8 kg (156 lb) 02/24/2024 9:13 AM CDT Height 162.6 cm (5' 4) 02/24/2024 9:13 AM CDT Body Mass Index [...] vaccine 65+ Completed 016, 05/01/2015, 05/02/2009 Insurance [facility] MEDICARE RAILROAD MEDICARE RAILROAD [facility] MEDICARE RAILROAD [facility] Advance Directives For more information, please contact: [phone] * Full Code (Latest Code Status on File) Date Activated Date Inactivated Comments 07/10/2018 6:52 AM 07/13/2018 5:43 PM Care Teams Pay Clerk Relationship Specialty Start Date End Date Americo Tomlin MD PCP - General 07/10/18
--- OUTSIDE RECORDS SUMMARY | 2024-11-29 09:43 | XMS_ITS | Referral Summary ---
Author Organization [facility] Address [address] [place] [address] Care Team Providers Care Climate Change Analyst Name Role Phone Americo Tomlin MD Primary [...] 1 tablet (25 mcg total) by mouth kinesiotherapist before breakfast Active sertraline (ZOLOFT) 100 mg [...] SPRAY(S) IN EACH NOSTRIL TWICE DAILY NEEDED Active Active Problems Problem Noted Date Diagnosed Date History of coronary artery stent placement 02/15 Paraesophageal hernia 07/10/2018 Overview (07/10/2018): Added automatically from request for surgery [id number] Depression 07/10/2018 Anxiety 07/10/2018 CAD (coronary artery [...] on file 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 Gender Identity Not on file Sexual Orientation Not on file Last Filed Vital Signs Vital Sign Reading Time Taken Comments Blood Pressure 120/76 02/24/2024 9:13 AM CDT Pulse 71 02/24/2024 9:13 AM CDT Temperature 37.1 C (98.7 F) 07/27/2018 8:46 AM MOTOR ASSEMBLER Respiratory Rate 18 07/13/2018 12:45 PM MOTOR ASSEMBLER Oxygen Saturation 99% 02/24/2024 9:13 AM CDT Inhaled Oxygen Concentration - - Weight 70.8 kg (156 lb) 02/24/2024 9:13 AM CDT Height 162.6 cm (5' 4) 02/24/2024 9:13 AM CDT Body Mass Index 26.78 02/24/2024 9:13 AM CDT Plan of Treatment Not on file Insurance [facility] MEDICARE RAILROAD MEDICARE RAILROAD [facility] Advance Directives For more information, please contact: [phone] * Full Code (Latest Code Status on File) Date Activated Date Inactivated Comments 07/10/2018 6:52 AM 07/13/2018 5:43 PM Care Teams Climate Change Analyst Relationship Specialty Start Date End Date Americo Tomlin MD PCP - General 07/10/18
--- OUTSIDE RECORDS SUMMARY | 2024-11-29 09:44 | XMS_ITS | CONTINUITY OF CARE DOCUMENT ---
Author Name vee baxter Address Unknown Organization [facility] [address] Address [address] [facility] [address] [place] [address] Phone [phone] Care Team Providers Care Used Car Salesperson Name Role Phone Norberto Leyva MD Unavailable [phone] Americo Tomlin MD Unavailable [phone] Americo Tomlin MD Unavailable [phone] PROBLEMS Condition Status Date Provider Notes CHEST [...] In-person encounter Office Visit Norberto Leyva MD [facility] Preop exam - In-person encounter Office Visit Norberto Leyva MD [facility] Hiatal hernia - In-person encounter Office Visit Norberto Leyva MD [facility] CHEST PAINSHORTNESS OF BREATHCAD S/P LAD STENT 04/2009PVC'sHypertensionRUQ PAINSVTFamily History of Hypertension:Acute DVT of R popliteal veinVenous insufficiencyHx of ANEMIATobacco use, quit - In-person encounter Office Visit Norberto Leyva MD [facility] Varicose veins - In-person encounter Office Visit Norberto Leyva MD [facility] - In-person encounter Office Visit Norberto Leyva MD [facility] - In-person encounter Office Visit Norberto Leyva MD [facility] SVT - In-person encounter Office Visit Norberto Leyva MD [facility] - In-person encounter Office Visit Norberto Leyva MD [facility] - In-person encounter Office Visit Norberto Leyva MD [facility] - In-person encounter Office Visit Norberto Leyva MD [facility] - In-person encounter Office Visit Norberto Leyva MD [facility] PVC's - In-person encounter Office Visit Norberto Leyva MD [facility] - In-person encounter Office Visit Norberto Leyva MD [facility] - In-person encounter Office Visit Norberto Leyva MD [facility] Hypercholesterolemia, mixedHYPOTHYROIDISMSHORTNESS OF BREATH VITAL SIGNS [...] blood pressure, cuff size regular Ke rri [facility] blood pressure, diastolic 77 mm[Hg] Ke rri [facility] blood pressure, systolic 127 mm[Hg] Dee ri [facility] oxygen saturation, oximetry 96 % Cori Omid respiratory rate E&M 18 /min Cori davis pulse rate 83 /min Cori Pramod [facility] weight E&M 168 [lb_av] Cori Rodrigueze er height E&M 64 [in_i] Cori Rodrigueze er Body Mass Index (Ratio) 28.49 kg/m2 Asael Ferreira blood pressure, resting Yes Asael lobato [facility] blood pressure, diastolic 80 mm[Hg] Da luz [...] navarrete Orellana blood pressure, diastolic 82 mm[Hg] [facility] blood pressure, systolic 139 mm[Hg] [facility] oxygen saturation, oximetry 96 % [facility] respiratory rate E&M 14 /min [facility] pulse rate 77 /min [facility] weight E&M 167 [lb_av] [facility] height E&M 64 [in_i] [facility] Body Mass Index (Ratio) 27.98 kg/m2 Anea ivette [facility] blood pressure, diastolic, left arm 78 mm [Hg] Aneatris [facility] blood pressure, systolic, left arm 118 mm [Hg] Aneatris [facility] blood pressure, diastolic, right arm 82 m m[Hg] Aneatris [facility] blood pressure, systolic, right arm 134 m m[Hg] Aneatris [facility] blood pressure, diastolic 78 mm[Hg] An eatris [facility] blood pressure, systolic 118 mm[Hg] Ane atris [facility] pulse rate 80 /min [facility] oxygen saturation, oximetry 96 % Nohemiatris [facility] respiratory rate E&M 18 /min Aneatri s [facility] weight E&M 163 [lb_av] Nohemiatropal [facility] Body Mass Index (Ratio) 27.56 kg/m2 [...] /min Jianaide Nichole weight E&M 160 [lb_av] [facility] Body Mass Index (Ratio) 27.25 kg/m2 Clyde ar [facility] blood pressure, diastolic, left arm 86 mm [Hg] [facility] blood pressure, systolic, left arm 126 mm [Hg] [facility] blood pressure, diastolic, right arm 72 m m[Hg] [facility] blood pressure, systolic, right arm 124 m m[Hg] [facility] blood pressure, diastolic 72 mm[Hg] [facility] blood pressure, systolic 124 mm[Hg] Osbaldo [facility] pulse rate 85 /min [facility] oxygen saturation, oximetry 97 % [facility] respiratory rate E&M 16 /min [facility] weight E&M 158.2 [lb_av] [facility] height E&M 64 [in_i] [facility] blood pressure, diastolic, left arm 88 [...] pressure, diastolic, left arm 79 mm [Hg] Maegn Ignacio RN blood pressure, systolic, left arm [...] diastolic, left arm 781 m m[Hg] Za BarrettOtm blood pressure, systolic, left arm 121 mm [Hg] Za BarrettTom blood pressure, diastolic, right arm 80 m m[Hg] Za BarrettTom blood pressure, systolic, right arm 122 m m[Hg] Za BarrettTom blood pressure, diastolic 78 mm[Hg] Ca tk Gaomann blood pressure, systolic 121 mm[Hg] Car larry BarrettTom pulse rate 84 /min Za [facility] oxygen saturation, oximetry 97 % Za [facility] respiratory rate E&M 16 /min Za fung weight E&M 192 [lb_av] Za [facility] blood pressure, diastolic, left arm 92 mm [Hg] [facility] blood pressure, systolic, left arm 128 mm [Hg] [facility] blood pressure, diastolic, right arm 81 m m[Hg] [place]onte [place] blood pressure, systolic, right arm 125 m m[Hg] [place]onte [place] blood pressure, diastolic 81 mm[Hg] Genevieve garza [place] blood pressure, systolic 125 mm[Hg] Osbaldo valdez [facility] pulse rate 90 /min [facility] oxygen saturation, oximetry 96 % [facility] respiratory rate E&M 16 /min Davonte [facility] weight E&M 207 [lb_av] [facility] blood pressure, diastolic, left arm 94 [...] Norberto Leyva MD platelet count 236 10*3/uL [facility] red blood cell distribution width 13.0 % [facility] mean corpuscular hemoglobin concentration, RBC 33.2 g/dL [facility] mean corpuscular hemoglobin, RBC 30.8 pg [facility] mean corpuscular volume, RBC 92.9 fL [facility] hematocrit, blood 39.2 % [facility] hemoglobin, blood 13.0 g/dL [facility] erythrocyte (RBC) count 4.22 10*6/mm3 [facility] leukocyte count, blood 5.3 10*3/mm3 [facility] protein, total, serum 7.9 g/dL [facility] albumin, serum 4.2 g/dL [facility] bilirubin, serum, total 0.70 mg/dL [facility] alkaline phosphatase, serum 84 1/L [facility] alanine aminotransferase (SGPT), serum 35 1/L [facility] aspartate aminotransferase (SGOT), serum 24 1/L [facility] calcium, serum 9.0 mg/dL [facility] blood glucose, random 140 mg/dL [facility] creatinine, serum 0.78 mg/dL [facility] urea nitrogen, blood 22 mg/dL [facility] carbon dioxide, serum, total 26 mmol/L [facility] chloride, serum 106 mmol/L [facility] potassium, serum 3.7 mmol/L [facility] sodium, serum 143 mmol/L [facility] LDL cholesterol, serum 73 mg/dL [facility] LDL cholesterol, serum 157 mg/dL [facility] cholesterol, serum 248 mg/dL [facility] lipoprotein, beta, serum, point, quantitative, calculated 215 mg/dL [facility] cholesterol, serum 312 mg/dL [facility] thyroid stimulating hormone, serum 1.300 u[IU]/mL [facility] platelet count 266 10*3/mm3 [facility] hematocrit, blood 43.5 % [facility] alanine aminotransferase (SGPT), serum 22 1/L [facility] aspartate aminotransferase (SGOT), serum 25 1/L [facility] creatinine, serum 0.85 mg/dL [facility] potassium, serum 4.4 mmol/L [facility] sodium, serum 141 mmol/L [facility] c-reactive protein, quantitative, serum 1.0 mg/L [...] LinkLogic <1000 High LDL/HDL ratio, serum 2.4 [facility] triglyceride, serum, fasting 220 mg/dL [facility] HDL cholesterol, serum 50 mg/dL [facility] LDL cholesterol, serum 118 mg/dL [facility] cholesterol, serum 212 mg/dL [facility] platelet count 267 10*3/uL [facility] red blood cell distribution width 12.8 % [facility] mean corpuscular hemoglobin concentration, RBC 32.8 g/dL [facility] mean corpuscular hemoglobin, RBC 31.1 pg [facility] mean corpuscular volume, RBC 95 fL [facility] hematocrit, blood 40.9 % [facility] hemoglobin, blood 13.4 g/dL [facility] erythrocyte (RBC) count 4.31 10*6/mm3 [facility] monocyte count, blood 0.3 10*3/mm3 [facility] lymphocyte count, blood 1.3 10*3/mm3 [facility] monocytes as percent of blood leukocytes 7 % [facility] lymphocytes as percent of blood leukocytes 33 % [facility] leukocyte count, blood 3.9 10*3/mm3 [facility] vitamin D 25-hydroxy, serum 30 ng/mL [facility] albumin/globulin ratio, serum 1.1 [facility] protein, total, serum 8.1 g/dL [facility] albumin, serum 4.3 g/dL [facility] bilirubin, serum, total 0.3 mg/dL [facility] alkaline phosphatase, serum 73 1/L [facility] alanine aminotransferase (SGPT), serum 19 1/L [facility] aspartate aminotransferase (SGOT), serum 22 1/L [facility] calcium, serum 9.5 mg/dL [facility] blood glucose, fasting 79 mg/dL [facility] creatinine, serum 0.77 mg/dL [facility] urea nitrogen, blood 18 mg/dL [facility] carbon dioxide, serum, total 25 mmol/L [facility] chloride, serum 103 mmol/L [facility] potassium, serum 4.2 mmol/L [facility] sodium, serum 139 mmol/L [facility] globulins, serum, total 3.9 g/dL [facility] B-12, serum 302 pg/mL [facility] folate, serum 9.7 ng/mL [facility] thyroxine, serum, free 1.08 ng/dL [facility] thyroid stimulating hormone, serum 1.800 u[IU]/mL [facility] Estimated Glomerular Filtration Rate (calc) >59 [facility] thyroid stimulating hormone, serum 1.115 u[IU]/mL [facility] cholesterol/HDL ratio, serum 3.7 [facility] triglyceride, serum, fasting 137 mg/dL [facility] HDL cholesterol, serum 46 mg/dL [facility] LDL cholesterol, serum 86 mg/dL [facility] cholesterol, serum 170 mg/dL [facility] globulins, serum, total 4.3 g/dL [facility] estimated glomerular filtration rate 77.5 mL/min [facility] albumin/globulin ratio, serum 0.8 [facility] protein, total, serum 7.9 g/dL [facility] albumin, serum 3.8 g/dL [facility] bilirubin, serum, total 0.3 mg/dL [facility] alkaline phosphatase, serum 62 1/L [facility] alanine aminotransferase (SGPT), serum 20 1/L [facility] aspartate aminotransferase (SGOT), serum 22 1/L [facility] calcium, serum 10.0 mg/dL [facility] blood glucose, fasting 82 mg/dL [facility] creatinine, serum 0.8 mg/dL [facility] urea nitrogen, blood 18 mg/dL [facility] carbon dioxide, serum, total 32 mmol/L [facility] chloride, serum 107 mmol/L [facility] potassium, serum 4.4 mmol/L [facility] sodium, serum 144 mmol/L [facility] platelet count 271 10*3/uL [facility] red blood cell distribution width 14.5 % [facility] mean corpuscular hemoglobin concentration, RBC 33.7 g/dL [facility] mean corpuscular hemoglobin, RBC 31.6 pg [facility] mean corpuscular volume, RBC 93.9 fL [facility] hematocrit, blood 38.9 % [facility] hemoglobin, blood 13.1 g/dL [facility] erythrocyte (RBC) count 4.1 10*6/mm3 [facility] neutrophils, segmented as percent of blood leukocytes 2.6 % [facility] monocyte count, blood 0.2 10*3/mm3 [facility] lymphocyte count, blood 1.2 10*3/mm3 [facility] neutrophils as percent of blood leukocytes 65.5 % [facility] monocytes as percent of blood leukocytes 4.6 % [facility] lymphocytes as percent of blood leukocytes 29.9 % [facility] leukocyte count, blood 3.9 10*3/mm3 [facility] platelet count 329 10*3/uL [facility] red blood cell distribution width 15.8 % [facility] mean corpuscular hemoglobin concentration, RBC 33.2 g/dL [facility] mean corpuscular hemoglobin, RBC 28.6 pg [facility] mean corpuscular volume, RBC 86 fL [facility] hematocrit, blood 35.1 % [facility] hemoglobin, blood 11.6 g/dL [facility] erythrocyte (RBC) count 4.06 10*6/mm3 [facility] monocyte count, blood 0.3 10*3/mm3 [facility] lymphocyte count, blood 1.6 10*3/mm3 [facility] monocytes as percent of blood leukocytes 5 % [facility] lymphocytes as percent of blood leukocytes 28 % [facility] leukocyte count, blood 5.6 10*3/mm3 [facility] albumin/globulin ratio, serum 0.6 [facility] protein, total, serum 8.0 g/dL [facility] albumin, serum 3.1 g/dL [facility] bilirubin, serum, total 0.20 mg/dL [facility] alkaline phosphatase, serum 87 1/L [facility] alanine aminotransferase (SGPT), serum 36 1/L [facility] aspartate aminotransferase (SGOT), serum 20 1/L [facility] calcium, serum 9.0 mg/dL [facility] blood glucose, fasting 92 mg/dL [facility] creatinine, serum 1.02 mg/dL [facility] urea nitrogen, blood 14 mg/dL [facility] carbon dioxide, serum, total 33 mmol/L [facility] chloride, serum 106 mmol/L [facility] potassium, serum 4.6 mmol/L [facility] sodium, serum 139 mmol/L [facility] triglyceride, serum, fasting 183 mg/dL [facility] HDL cholesterol, serum 38 mg/dL [facility] LDL cholesterol, serum 101 mg/dL [facility] cholesterol, serum 176 mg/dL [facility] thyroid stimulating hormone, serum 1.41 u[IU]/mL [facility] platelet count 267 10*3/uL [facility] red blood cell distribution width 14.3 % [facility] mean corpuscular hemoglobin concentration, RBC 30.5 g/dL [facility] mean corpuscular hemoglobin, RBC 28.5 pg [facility] mean corpuscular volume, RBC 93.3 fL [facility] hematocrit, blood 39.3 % [facility] hemoglobin, blood 12.0 g/dL [facility] erythrocyte (RBC) count 4.21 10*6/mm3 [facility] monocytes as percent of blood leukocytes 8.7 % [facility] lymphocytes as percent of blood leukocytes 31.0 % [facility] leukocyte count, blood 5.1 10*3/mm3 [facility] HISTORY OF MEDICATION USE Medication Status [...] Cori Anne alcohol use no Cori Benavidez [facility] caffeine use, averag e drinks per day 0 /d Cori Anne drug use none Cori Benavidez sinan passive cigarette sm stefan exposure yes Cori Friasyumikocherie smoking, year quit 2006 Cori Maynardnoel swain number of years as a smoker 10+ Norberto Leyva MD cigarette use yes Cori alfonso smoking status Former smoker Cori johnsonkaden number of years as a smoker 10+ years [facility] smoking, year quit 2006 [facility] cigarette use yes [facility] social history reviewed E&M revi ewed - no changes required [facility] social history E&M Marital Statu s: Rayray mills with family/friends E thnicity: Smoking History: Jesus Alberto parekh is a former smoker. [facility] exercise type walking, Wii, ex ercise bands [facility] physical exercise, f requency, days per week 7 /wk [facility] alcohol use, average drinks per day none [facility] alcohol use no [facility] caffeine use, averag e drinks per day 0 /d [facility] drug use none [facility] passive cigarette sm stefan exposure yes [facility] smoking status Former smoker Norberto Leyva [...] Katzacojesus alberto smoking history, tot al pack/year [id number] Davonte Manacojesus alberto smoking, year quit 2006 [...] type Yesenia garcia ID [employer] Medicare [id number] [facility] [id number] Other [id number] ADVANCE DIRECTIVES Name Date DISCUSSED - NO [...] Tabs (Levothyroxine sodium) ..... One tab. daily [facility] Cardiology:LDL: 73 ( 12/28/2016) Her updated medication list for this problem includes: Atorvastatin Calcium 40 Mg Tabs (Atorvastatin calcium) ..... 1 tab daily [facility] Cardiology:BP today: 142/80 P rior BP: 139/82 (12/11/2016) [facility] Cardiology:Myoview s can was normal. The following medications were removed from the medication list: Plavix 75 Mg Tabs (Clopidogrel bisulfate) ..... Daily Her updated medication list for this problem includes: Nitroglycerin 0.4 Mg Subl (Nitroglycerin) ..... Use as directed. [facility] Cardiology:Duplex to day shows acute DVT of the R popliteal vein and bilateral venous insufficiency. [facility] Cardiology:The pt johnson d a recent admission for chest pain. OK was ruled out and she was released. Myoview scan was normal. Duplex today shows acute DVT of the R popliteal vein. Will obtain CT to assess for possible pulmonary embolism. [facility] Cardiology:Duplex to day shows acute DVT of the R popliteal vein and bilateral venous insufficiency. Will start Xarelto 15mg BID for 3 weeks followed by 20mg daily. [facility] Cardiology:Echo reordered. Emeterio teresa Zhang Cardiology:Patient [...] is 79% which is within normal limits. [facility] (06/23/2008) C ardiac Cath: Severe coronary artery disease with 90% of the mid left anterior descending, 70 to 80% stenosis of the proximal right femoral artery and 80% stenosis of the lower division of the obtuse marginal branch. Moderate disease of the mid to distal left anterior descending with 40 to 50% stenosis. Normal ejection fraction 70%. [facility] (05/01/2009) C ardiac Cath Comments: Vasovagal reaction at the beginning of the procedure and successful slenting of the mid LAD with a 2.5 x 30 mm Vision stent. Successful closure of the right groin using a 6-[place]yan Angio-Seal closure device. [facility] (05/01/2009) C HOL: 176 (01/02/2009) LDL: 101 (01/02/2009) HDL: 38 (01/02/2009) T (01/02/2009) H gb: 11.6 (03/28/2009) HCT: 35.1 (03/28/2009) RBC: 4.06 (03/28/2009) WBC: 5.6 (03/28/2009) B UN: 14 (01/02/2009) Creat: 1.02 (01/02/2009) Glucose: 92 (01/02/2009) N a+: 139 (01/02/2009) K+: 4.6 (01/02/2009) Cl: 106 (01/02/2009) TSH: 1.41 (01/02/2009) O rders: C arotid Duplex Bilateral (CPT-56025) Norberto Leyva MD Follow-up s/p Stenti ng: [...] Prior BP: / () Orders: E KG (CPT-53660) Norberto Leyva MD cp-sob on exertion: H er updated medication list for this problem includes: Aspirin 81 Mg Tabs (Aspirin) ..... One tab. daily [facility] Calcium 600 + D/minerals Tabs (Calcium carbonate-vit d-min tabs) ..... One tab twice daily BP today: 159/85 Prior BP: / () Orders: C omplete Echo (CPT-64713) C ardiac Cath - GC (*) Norberto [...] tatus EKG Norberto Leyva MD completed SNOMED-CT: 795751197 [id number] Current Medications Documented Norberto Leyva MD completed SNOMED-CT: [id number] Current Medications Documented Norberto Leyva MD completed Stress EKG Irina Baird MD complet ed Cardiolite, 2 units Norberto Leyva MD c ompleted SPECT Images Irina Baird MD compl eted EKG Norberto Leyva MD completed SNOMED-CT: [id number] Current Medications Documented Norberto Leyva MD completed EKG Norberto Leyva MD completed EKG Norberto Leyva MD completed ePrescribe - Check t his box if eRx is used Norberto Leyva MD completed EKG Norberto Leyva MD completed EKG Norberto Leyva MD completed EKG Norberto Leyva MD completed EKG Magen Ignacio RN completed
--- OUTSIDE RECORDS SUMMARY | 2024-11-29 09:44 | XMS_ITS | Data Portability ---
Author Organization [place] - [facility] [employer], Main Office Address [address] [place] [address] Care Team Providers Care Reading Coach Name Role Phone ALYSA TOMLIN Primary Care Provider Assessment Encounter Date Assessment Date Assessment LastModified by Organization Details LastModified Time 10/26/2024 10/26/2024 I have reconciled the patient's medications post their discharge from inpatient facility. [email or web address] Not available 10/26/2024 12:31:11 Plan of Treatment Reminders Order Date Submit Date Provider Last Modified By Organization Details Last Modified Time Details Appointments Any 15 2024 09:00A M Alysa Tomlin MD Not available Not available Not available Lab vitamin D, 25-hydr oxy, total, serum 2024 [id number] [email or web address] [facility], [address], [address], [place], [address], 08/26/2024 10:30:29 CBC w/ auto diff 2024 025 MEGHAN [facility], [address], [place], [address], 08/23/2024 01:27:13 TSH, ultra-s ensitiv e, serum 2024 025 [email or web address] [facility], [address], [address], [place], [address], 08/26/2024 10:30:29 lipid panel, serum 2024 025 MEGHAN [facility], [address], [address], [place], [address], 08/22/2024 10:07:31 CMP, serum or plasma 2024 025 [place] [facility], [address], [place], [address], 08/22/2024 10:07:31 Referral None recorde d. Procedures None recorde d. Surgeries None recorde d. Imaging MAMMO, screeni ng, bilmitchell al - Please call patient to schedul e. [address], [address], [place], [address], 11/16/2024 17:30:49 bone density - Please call patient to schedul e. [address], [address], [place], [address], 11/16/2024 17:30:49 XR, chest, 2 view [address], [address], [place], [address], 11/26/2024 09:47:31 Medication Orders Zithrom ax Z-Bobby 250 mg tablet 2024 025 [facility], [address] [place], [address], 10/26/2024 12:37:13 Airsupr a 90 mcg-80 mcg/act uation HFA aerosol inhaler 2024 025 [email or web address] [facility], [address] [place] [address], [address], [place], [place], [id number], 10/15/2024 09:30:47 sertral ine 100 mg tablet 2024 025 MEGHAN [facility], [address] [facility], [address], [place], [id number], 07/14/2024 10:54:48 atorvas tatin 40 mg tablet 2024 025 [facility], [address], [facility] [address], [place], [place], [id number], 07/14/2024 10:54:48 Patient TargetsNo targets recorded. Patient Instructions Encounter Date Encounter Id Patient Instructions Last Modified By Organization Details Last Modified Time 10/15/2024 [id number] Continue fluids and take medications as prescribed. Take otc tylenol for fever and body aches. Chest xray ordered, will call with results. Make sure to stay active and continue to stay hydrated. Not available 10/15/2024 09:30:45 11/16/2024 [id number] complete PFT* - Please call patient to schedule. ANN [id number] w/ MCR. [employer] Not available 11/16/2024 16:10:34 Reason for Referral None Reported. Results Created Date Observation Date Name Description Value Unit Range Abnormal Flag Note LastModifiedBy Organization Detail LastModifiedTime Result Notes None recorded. Problems Name Problem SNOMED Code Status Onset Date Resolution Date Notes Provider Name and Address Organization Details Recorded Time Venous varices 758982718 Active Not Available [facility] 3 01:13:10 Mammogra phy abnormal 236833034 Completed Not Available [facility] 3 01:13:10 Abdomina l pain 73642257 Completed Not Available [facility] 3 01:13:10 Gastroes ophageal reflux disease 082949138 Active Not Available [facility] 3 01:13:10 Thyroid nodule 179193057 Active 2021 Not Available [facility] 3 01:13:10 Thyroid nodule 545620356 Completed 201711/05/2017 Not Available [facility] 3 01:13:10 Long-ter m drug therapy Completed 202112/14/2021 Not Available [facility] 3 01:13:10 Adult health examinat ion Active 2021 Alysa Tomlin MD [address] [facility], [facility] [address], [place], [address] , [facility] [employer] 5 12:39:06 Anemia 977563958 Active Not Available [facility] 3 01:13:10 Hypertro phic obesity 791479447 Completed Not Available [facility] 3 01:13:11 Chest pain 39106759 Completed Not Available [facility] 3 01:13:11 Osteopen ia 160437818 Active Not Available [facility] 3 01:13:11 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 788682729 Active 2016 Not Available [facility] 3 01:13:11 Hypothyr oidism 90578242 Active Not Available [facility] 3 01:13:11 Acute urinary tract infectio n 071384726 Completed 202108/19/2022 Lindsey terry, RMA null, [place] [employer] 3 08:26:01 Pain of bilatera l knee joints 17560045445 4104 Active 2021 Not Available [facility] 3 01:13:11 Anxiety 45357224 Active Not Available [facility] 3 01:13:12 Coronary arterios clerosis 74333544 Active 2008 s/p stent Not Available [facility] 3 01:13:12 Hyperlip idemia 89991865 Active Not Available [facility] 3 01:13:12 Essentia l hyperten zuhair 87906590 Active Not Available [facility] 3 01:13:12 Allergic rhinitis 08557591 Active 2020 Not Available [facility] 3 01:13:12 Closed fracture of head of radius 83825942 Completed Not Available [facility] 3 01:13:12 Hiatal hernia 91324307 Active 2016 Not Available [facility] 3 01:13:13 Ex-smoke r 6306898 Active stopped in 2006 Not Available [facility] 3 01:13:13 Vitamin D deficien 32171015 Active 2022 Alysa Tomlin MD [address], [address], [place], [address] , [facility] 5 12:39:29 Low back pain 069913969 Active 2022 Alysa Tomlin MD [address], [address], [place], [address] , [facility] 5 12:39:41 Knee pain Active 2022 Alysa Tomlin MD [address], [address], [place], [address] , [facility] 5 12:39:47 Chronic back pain 755049849 Active 2022 Alysa Tomlin MD [address], [address], [place], [address] , [facility] 5 12:40:02 Swelling of knee joint 937318699 Active 2024 Alysa Tomlin MD [address], [address], [place], [address] , [facility] 5 12:39:35 Acute exacerba tion of chronic obstruct teresa pulmonar y disease 444519360 Active 2024 Alysa Tomlin MD [address], [address], [place], [address] , [facility] 5 12:48:28 Mild chronic obstruct teresa pulmonar y disease 616343540 Active 2024 Alysa Tomlin MD [address], [address], [place], [address] , [facility] 5 15:53:53 Problem Notes None recorded. Procedures Surgical History Date Name Laterality Status Provider Name and Address Organization Details Recorded Time 09/03/19 24 Medicare Wellness CPT Code, subsequent completed Mabel Case RN [facility] [employer] 09/03/2023 10:44:57 01/02/20 Medicare Wellness CPT Code, subsequent completed Maura Greer CMA [facility] 01/01/2023 10:27:23 08/29/19 Medicare Wellness CPT Code, subsequent completed Susanna Powell RN [facility] 08/28/2022 10:56:58 01/02/20 21 Date of Last Mammogram completed Susanna Powell RN [facility] 08/28/2022 11:00:02 11/04/19 20 Date of Last Colonoscopy completed Not Available [facility] 08/14/2022 00:59:40 05/27/20 Most Recent Bone Density completed Not Available [facility] 08/14/2022 00:59:40 extraction of multiple deciduous teeth completed Not Available [facility] 08/14/2022 00:59:49 AUTOMOTIVE WINDOW TINTER Surgery completed Not Available [facility] 08/14/2022 00:59:49 hernia repair completed Not Available Replaced by [facility] 08/14/2022 00:59:49 Imaging Results None recorded. Procedure Notes None recorded. Medical Equipment None Reported. Allergies Allergen ID Allergen Name Allergen Category Reaction Reaction Severity Criticality Documentation Date Start Date Code Code System Note Provider Name and Address Organization Details Recorded Time 2516 Crestor medicatio n other Not available Not available 08/14/2022 96140 4 RxNorm Mood orestes hancock Not Available [facility] 3 01:30:55 2517 Lipitor medicatio n Not available Not available Not available 08/14/2022 60907 5 RxNorm Not Available [facility] 3 01:30:55 Medications Name Sig Start Date Stop Date Status Note LastModified by Organization Details LastModified Time amoxicill in 500 mg capsule active Not Available Not Available Not Available atorvasta tin 40 mg tablet TAKE 1 TABLET BY MOUTH DAILY 2024 active Not Available Not Available Not Avai lable prednison e 10 mg tablet TAKE 4 TABLETS BY MOUTH DAILY X 3DAYS, THEN 3 TABLETS FOR 3 DAYS, 2 TABLET FOR 3 DAYS AND 1 TABLET FOR 3 DAYS UNTIL GONE active Not Available Not Available No t Available doxycycli ne hyclate 100 mg capsule TAKE 1 CAPSULE BY MOUTH TWICE DAILY 11/16 completed Not Available Not Available Not Available azithromy ami 250 mg tablet TAKE 2 TABLETS BY MOUTH ON DAY 1, AND THEN TAKE 1 TABLET BY MOUTH ONCE A DAY ON DAY 2 THROUGH DAY 5 10/26 completed Not Available Not Available Not Available levalbute rol 0.63 mg/3 mL solution for nebulizat ion USE 1 IN NEBULIZE R EVERY 8 HOURS NEEDED FOR SHORTNES S OF BREATH AND FOR WHEEZING active Not Available Not Available No t Available benzonata te 200 mg capsule Take 1 [...] Not Available Not Available Not Avai lable levothyro xine 75 mcg tablet Take 1 tablet every day by oral route. 09/30 completed DEAN For this Script Not Available Not Available [...] completed Not Available Not Available Not Available levalbute rol HFA 45 mcg/actua tion aerosol inhaler INHALE 1 PUFF BY MOUTH EVERY 6 HOURS NEEDED FOR SHORTNES S OF BREATH FOR WHEEZING active Not Available Not Available No t Available magnesium OTC 2021 active Not Available [...] Updated DateTime 5 160.02 cm 27.3 kg/m2 18124.2 2 g 97.5 [degF] 70 /min 95 % 95 % 124 mm[Hg] 78 mm[Hg] Korin jones [place] [employer] [facility] 5 10:26:39 Date Recorded Body height Body mass index (BMI) Body weight Body temperature Heart rate Oxygen saturation Oxygen saturation in Arterial blood by Pulse oximetry Systolic blood pressure Diastolic blood pressure Provider Name and Address Organization Details Last Updated DateTime 5 160.02 cm 27.1 kg/m2 54011.6 3 g 98.1 [degF] 99 /min 95 % 95 % 118 mm[Hg] 72 mm[Hg] Korin jones [place] [employer] [facility] [employer] [facility] 5 09:08:16 Date Recorded Body height Body mass index (BMI) Body weight Body temperature Heart rate Oxygen saturation Oxygen saturation in Arterial blood by Pulse oximetry Systolic blood pressure Diastolic blood pressure Provider Name and Address Organization Details Last Updated DateTime 5 160.02 cm 26.6 kg/m2 28033.8 6 g 97.6 [degF] 94 /min 97 % 97 % 118 mm[Hg] 68 mm[Hg] Korin jones [employer] [facility] [employer] [facility] 5 12:36:29 Date Recorded Body height Body mass index (BMI) Body weight Body temperature Oxygen saturation Oxygen saturation in Arterial blood by Pulse oximetry Heart rate Systolic blood pressure Diastolic blood pressure Provider Name and Address Organization Details Last Updated DateTime 5 160.02 cm 27 kg/m2 73862.4 8 g 97.4 [degF] 96 % 96 % 99 /min 116 mm[Hg] 62 mm[Hg] Wendy Diane RN [facility] [employer] [facility] 5 15:25:10 Date Recorded Body height Body mass index (BMI) Body weight Body temperature Heart rate Oxygen saturation Oxygen saturation in Arterial blood by Pulse oximetry Systolic blood pressure Diastolic blood pressure Provider Name and Address Organization Details Last Updated DateTime 4 160.02 cm 27.5 kg/m2 64203.8 2 g 97.5 [degF] 75 /min 98 % 98 % 120 mm[Hg] 70 mm[Hg] Dory Alvarez [facility] [employer] [facility] 4 10:55:56 Social History Question Answer Notes LastModified by Organization Details LastModified Time Tobacco Smoking Status Former Smoker Not Available [facility] 08/14/2022 00:49:40 Do You Have An Advance Directive? No Papers Given Previously [email or web address] Information not available 09/03/2023 Are You Blind Or Do You Have Difficulty Seeing? No MIGRATION.0301 [id number] Information not available 08/14/2022 What Is Your Level Of Caffeine Consumption? Occasional MIGRATION.0301 891622 Information not available 08/14/2022 How Much Tobacco Do You Chew? None MIGRATION.0301 797898 Information not available 08/14/2022 Are You Deaf Or Do You Have Serious Difficulty Hearing? No MIGRATION.0301 475825 Information not available 08/14/2022 What Type Of Diet Are You Following? REGULAR MIGRATION.0301 082780 Information not available 08/14/2022 Which Illicit Or Recreational Drugs Have You Used? None MIGRATION.0301 641577 Information not available 08/14/2022 Have There Been Any Changes To Your Family Or Social Situation? No MIGRATION.0301 919210 Information not available 08/14/2022 What Is The Fluoride Status Of Your Home? Fluoridated MIGRATION.0301 082429 Information not available 08/14/2022 When Did You Quit Smoking? 16+yearssincelast cigarette [email or web address] Information not available 08/28/2022 Are There Any Guns Present In Your Home? No MIGRATION.0301 712525 Information not available 08/14/2022 [facility] MIGRATION.0301 805488 Information not available 08/14/2022 Guns Present In The Home? No [email or web address] Information not available 09/03/2023 Are You Able To Care For Yourself? Yes Information not available 08/28/2022 Are You Blind Or Do Yo Have Difficulty Seeing? No [email or web address] Information not available 08/28/2022 Are You Deaf Or Do You Have Serious Difficulty Hearing? No [email or web address] Information not available 08/28/2022 Live Alone Of With Others? With Others [email or web address] Information not available 09/03/2023 What Was The Date Of Your Most Recent Tobacco Screening? 09/03/2023 [email or web address] Information not available 09/03/2023 What Is Your Current Pack Years? [email or web address] Information not available 08/28/2022 Do You Have Any Pets? No [email or web address] Information not available 09/03/2023 Do You Use Your Seat Belt Or Car Seat Routinely? Yes MIGRATION.0301 [id number] Information not available 08/14/2022 Do You Have Smoke And Carbon Monoxide Detectors In Your Home? Yes MIGRATION.0301 756014 Information not available 08/14/2022 At What Age Did You Start Smoking Tobacco? 16 MIGRATION.0301 122054 Information not available 08/14/2022 Are You Passively Exposed To Smoke? No [email or web address] Information not available 09/03/2023 Are There Any Smokers In Your House? No Information not available 09/03/2023 How Much Tobacco Do You Smoke? 2 PPD MIGRATION.0301 989058 Information not available 08/14/2022 Do You Use Sunscreen Routinely? No MIGRATION.0301 165421 Information not available 08/14/2022 Have You Recently Traveled Abroad? No [email or web address] Information not available 09/03/2023 Do You Have Difficulty Walking Or Climbing Stairs? No MIGRATION.0301 170212 Information not available 08/14/2022 Do You Have Any Dietary Restrictions? No [email or web address] Information not available 09/03/2023 Sex: Female Functional Status Question Answer Note LastModified by [employer] ion Details LastModified Time What is your level of alcohol consumption? None MIGRATION.6341003 026 Information not available 08/14/2022 Do you have transportation difficulties? No MIGRATION.1950675 026 Information not available 08/14/2022 Are you able to walk? YESWOREST MIGRATION.9364573 026 Information not available 08/14/2022 Are you able to care for yourself? Yes MIGRATION.9460468 026 Information not available 08/14/2022 What is your occupation? Retired MIGRATION.8169098 026 Information not available 08/14/2022 Do you have difficulty dressing or bathing? No MIGRATION.9275507 026 Information not available 08/14/2022 What is your exercise level? None [email or web address] Information not available 09/03/2023 Mental Status Question Answer Note LastModified by [employer] ion Details LastModified Time Do you feel stressed (tense, restless, nervous, or anxious, or unable to sleep at night)? CA1876-0 MIGRATION.77659899 26 Information not available 08/14/2022 Do you have difficulty concentrating, remembering or making decisions? No MIGRATION.53863543 26 Information not available 08/14/2022 Family History Relationship Description Onset Age of this Age Resolved Age Notes LastModified by Organization Details LastModified Time Mother Heart disease MIGRATION.450 [id number] Not available 08/14/2022 00:59:51 Mother Diabetes mellitus MIGRATION.976 7569935 Not available 08/14/2022 00:59:51 Sister Diabetes mellitus MIGRATION.222 6020136 Not available 08/14/2022 00:59:51 Sister Heart disease MIGRATION.493 7360648 Not available 08/14/2022 00:59:51 Sister Depressive disorder MIGRATION.582 2920902 Not available 08/14/2022 00:59:51 Brother Diabetes mellitus MIGRATION.878 0148304 Not available 08/14/2022 00:59:51 Father Malignant neoplastic disease testic ular MIGRATION.900 4500316 Not available 08/14/2022 00:59:51 Medical History No [...] high-dose, trivalent, PF 5 completed Not Available [facility] 08/14/2022 01:30:02 Influenza, split virus, quadrivalent, preservative 9 completed Susanna Borden CMA null, [facility] 09/03/2023 10:15:26 Influenza, high-dose, trivalent, PF 2 completed Not Available [facility] 08/14/2022 01:30:03 Influenza, high-dose, trivalent, PF 1 completed SARAH Matos, [facility] 09/03/2023 10:15:26 Influenza, high-dose, trivalent, PF 0 completed SARAH Matos, [facility] 09/03/2023 10:15:26 COVID-19, mRNA, LNP-S, PF, 30 mcg/0.3 mL dose 1 completed Susanna Borden CMA null, [place] [employer] [facility] [employer] [facility] 09/03/2023 10:15:26 Influenza, high-dose, quadrivalent, PF 1 completed Not Available [facility] 08/14/2022 01:30:03 SARS-COV-2 (COVID-19) vaccine, UNSPECIFIED 1 completed Susanna Borden CMA null, [place] [employer] [facility] [employer] [facility] 09/03/2023 10:15:26 SARS-COV-2 (COVID-19) vaccine, UNSPECIFIED 1 completed Susanna Borden CMA null, [employer] [facility] [employer] [facility] 09/03/2023 10:15:26 pneumococcal polysaccharide PPV23 9 completed Not Available [facility] 08/14/2022 01:30:04 DTaP 9 completed Not Available [facility] 08/14/2022 01:30:04 Influenza, high-dose, trivalent, PF 8 completed Not Available [facility] 08/14/2022 01:30:04 Influenza, high-dose, trivalent, PF 7 completed Not Available [facility] 08/14/2022 01:30:04 Influenza, high-dose, trivalent, PF 6 completed Not Available [facility] 08/14/2022 01:30:05 Pneumococcal conjugate PCV 13 6 completed Not Available [facility] 08/14/2022 01:30:05 pneumococcal polysaccharide PPV23 5 completed Not Available [facility] 08/14/2022 01:30:05 Influenza, split virus, quadrivalent, preservative 5 completed Not Available [facility] 08/14/2022 01:30:05 Influenza, split virus, trivalent, PF 4 completed Susanna Borden CMA null, [facility] [employer] [facility] 09/03/2023 10:15:26 Past Encounters Encounter ID Performer Location Encounter Start Date Encounter Closed Date Diagnosis/Indication Diagnosis SNOMED-CT Code Diagnosis ICD10 Code Diagnosis Note [id number] Alysa Tomlin MD [facility] [address] [facility] [place] [address] 08/16/2020 00:00:00 08/16/2020 12:02:06 [id number] Alysa Tomlin MD [facility] Internal [facility] [address] [facility] [facility] [place] [address] 12/20/2020 00:00:00 12/20/2020 11:57:36 [id number] Alysa Tomlin MD [facility] Internal [address] [facility] [place] [address] 04/23/2021 00:00:00 04/23/2021 10:26:03 [id number] Alysa Tomlin MD S_[facility] Internal [address] [facility] [place] [address] 08/21/2021 00:00:00 08/21/2021 16:51:01 [id number] Alysa Tomlin MD Harry_[facility] Internal [address] [facility] [place] [address] 12/24/2021 00:00:00 12/24/2021 11:23:46 [id number] Alysa Tomlin MD [facility] Internal [address] [facility] [place] [address] 04/29/2022 00:00:00 04/29/2022 11:13:15 [id number] Alysa Tomlin MD [facility] Internal [address] [facility] [place] [address] 08/28/2022 10:15:24 08/28/2022 10:55:08 Adult health examination 517101102 Z00.00 Colonoscop y- 11/04/2019M ammogram- 2021Dexa- 05/27/19Pn eumovax - 04/2019,Prevn ar 05/2019FLU -2CO VID- 08/29/20, 09/29/20, 04/13/2021 , 03/2022 Coronary arteriosclerosis 16558226 I25.10 s/p stents, on asa Hypothyroidism 11469369 E03.9 under control with meds Anxiety 82654368 F41.9 better with meds Allergic rhinitis 579324 04 J30.9 meds help Hyperlipidemia 71401795 E78.5 on meds Essential hypertension 87370320 I10 under control Anemia 659401280 D64.9 stable Gastroesop hageal reflux disease 338188162 K21.9 stable Hiatal hernia 04746996 K 44.9 s/p surgery, no symptoms Ex-smoker 5921291 Z87.89 1 quit in 2006 Thyroid nodule 775197658 E04.1 getting us from ENT Venous varices 997246183 I83.90 using pressure stockings Pain of bi lateral knee joints 0603516975 80092 M25.561 otc voltaren Vitamin D deficiency 347 92116 E55.9 Screening mammography 24 004925 Z12.31 Postmenopausal state 764 22834 Z78.0 Screening for disorder 929980892 Z13.9 [id number] Alysa Tomlin MD [facility] [address] [place] [address] 01/01/2023 10:22:06 01/01/2023 11:02:49 Adult health examination 803668770 Z00.00 Colonoscop y- 11/04/2019M ammogram- 2023Dexa- 3Pneumo vax - 04/2019,Prevn ar 05/2019FLU -2CO VID- 08/29/20, 09/29/20, 04/13/2021 , 03/2022 Coronary arteriosclerosis 61168536 I25.10 s/p stents, on asa Hypothyroidism 71173127 E03.9 under control with meds Anxiety 13457594 F41.9 better with meds Allergic rhinitis 320758 04 J30.9 meds help Hyperlipidemia 21356932 E78.5 on meds and under control Essential hypertension 99974508 I10 under control Anemia 332930063 D64.9 stable Gastroesop hageal reflux disease 951541517 K21.9 stable Hiatal hernia 81398695 K 44.9 s/p surgery, no symptoms Ex-smoker 3093791 Z87.89 1 quit in 2006 Thyroid nodule 451660417 E04.1 small, no more f/u needed Venous varices 592543404 I83.90 using pressure stockings Pain of bi lateral knee joints 0874818512 56169 M25.561 otc voltaren prn Vitamin D deficiency 347 76552 E55.9 otc History of deep vein thrombosis 210957614 Z86.718 no recurrence Eruption 027508878 R21 [id number] Alysa Tomlin MD S_[facility] Internal [address] [place] [address] 03/10/2023 15:08:43 03/10/2023 15:39:30 Vertigo 787886934 R42 meclizine [id number] Alysa Tomlin MD [facility] Internal [address] [place] [address] 05/05/2023 10:23:12 05/05/2023 11:11:55 Adult health examination 629469720 Z00.00 Colonoscop y- 11/04/2019M ammogram- 3Dexa- 3Pneumo vax - 04/2019,Prevn ar 13- 05/2019FLU -03/2022, 3COV ID- 08/29/20, 09/29/20, 04/13/2021 , 03/2022 Coronary arteriosclerosis 92084711 I25.10 s/p stents, on asa Hypothyroidism 87869534 E03.9 under control with meds Anxiety 71536414 F41.9 better with meds Allergic rhinitis 886859 04 J30.9 meds help Hyperlipidemia 14209673 E78.5 on meds and under control Essential hypertension 54317711 I10 under control Anemia 210037123 D64.9 stable Gastroesop hageal reflux disease 199717738 K21.9 stable Hiatal hernia 46937395 K 44.9 s/p surgery, no symptoms Ex-smoker 3829605 Z87.89 1 quit in 2006 Thyroid nodule 166455868 E04.1 small, no more f/u needed Venous varices 585484006 I83.90 using pressure stockings Pain of bi lateral knee joints 3805233265 75154 M25.561 otc voltaren prn Vitamin D deficiency 347 05359 E55.9 otc History of deep vein thrombosis 683672278 Z86.718 no recurrence Low back pain 473020821 M54.50 [id number] Alysa Tomlin MD [facility] Internal [address] [facility] [place] [address] 09/03/2023 10:08:01 09/03/2023 10:46:26 Hypothyroidism 12222150 E03.9 under control with meds Anxiety 00375946 F41.9 better with meds Essential hypertension 64998251 I10 under control , no meds Adult heal th examination 888256254 Z00.00 Colonoscop y- 11/04/2019M ammogram- 3Dexa -3Pneumo vax - 04/2019,Prevn ar 13- 05/2019FLU -03/2022, 3COV ID- 08/29/20, 09/29/20, 04/13/2021 , 03/2022 Coronary arteriosclerosis 32890005 I25.10 s/p stents, on asa Allergic rhinitis 686021 04 J30.9 meds help Hyperlipidemia 75240394 E78.5 on meds and under control Anemia 006031472 D64.9 stable Gastroesop hageal reflux disease 049437129 K21.9 stable Hiatal hernia 37844759 K 44.9 s/p surgery, no symptoms Ex-smoker 8067116 Z87.89 1 quit in 2006 Thyroid nodule 810691467 E04.1 small, no more f/u needed Venous varices 894400804 I83.90 using pressure stockings Pain of bi lateral knee joints 2145189683 85734 M25.561 otc voltaren prn helps Vitamin D deficiency 347 57605 E55.9 otc History of deep vein thrombosis 494845228 Z86.718 no recurrence Low back pain 636709094 M54.50 improved Screening for disorder 330382878 Z13.9 [id number] Alysa Tomlin MD [facility] Internal [address] [facility] [place] [address] 01/14/2024 10:44:50 01/14/2024 11:31:08 Chronic back pain 564987631 G89.29 better Hypothyroidism 96407259 E03.9 under control with meds Anxiety 34995480 F41.9 better with meds Essential hypertension 36969651 I10 under control , no meds Adult heal th examination 651572144 Z00.00 Colonoscop y- 11/04/2019M ammogram- 11/2022, wants to wait for a year to get it done with dexaDexa-3Pneumo vax - 04/2019,Prevn ar 05/2019FLU , OV ID- 08/29/20, 09/29/20, 04/13/2021 , 03/2022 Coronary arteriosclerosis 65904683 I25.10 s/p stents, on asa Allergic rhinitis 860971 04 J30.9 meds help Hyperlipidemia 52195017 E78.5 on meds and under control Anemia 480538526 D64.9 improved Gastroesop hageal reflux disease 755608566 K21.9 stable Hiatal hernia 82621514 K 44.9 s/p surgery, no symptoms Ex-smoker 7487908 Z87.89 1 quit in 2006 Thyroid nodule 381977829 E04.1 small, no more f/u needed Venous varices 393402230 I83.90 using pressure stockings and helps Pain of bi lateral knee joints 0018726250 00486 M25.561 otc Vitamin D deficiency 347 11705 E55.9 otc History of deep vein thrombosis 565610945 Z86.718 no recurrence Low back pain 317085788 M54.50 better [id number] Alysa Tomlin MD [facility] [address] [place] [address] 07/14/2024 10:17:22 07/14/2024 10:56:43 Essential hypertension 36468493 I10 under control , no meds needed Hypothyroidism 71018374 E03.9 under control with meds Chronic back pain 487502 002 G89.29 better Anxiety 00023860 F41.9 better with meds Adult heal th examination 539249723 Z00.00 Colonoscop y- 11/04/2019M ammogram- 11/2022, wants to wait for a year to get it done with dexaDexa-3Pneumo vax - 04/2019,Prevn ar 05/2019FLU -03/2022, 04/2023, 4COVID- 08/29/20, 09/29/20, 04/13/2021 , 03/2022 Coronary arteriosclerosis 01146518 I25.10 stable Allergic rhinitis 258711 04 J30.9 meds help Hyperlipidemia 91750054 E78.5 on meds and under control Anemia 476995738 D64.9 improved Gastroesop hageal reflux disease 296706942 K21.9 stable Hiatal hernia 94593578 K 44.9 s/p surgery, no symptoms Ex-smoker 0801795 Z87.89 1 quit in 2006 Thyroid nodule 486136562 E04.1 small, no more f/u needed Venous varices 150017048 I83.90 using pressure stockings and helps Vitamin D deficiency 347 20611 E55.9 ot History of deep vein thrombosis 172303208 Z86.718 no recurrence Low back pain 617657968 M54.50 better Swelling o f knee joint 828085371 M25.469 improving, local voltaren gel [id number] Alysa Tomlin MD [facility] Internal [address] [address] 10/15/2024 08:59:12 10/15/2024 12:34:59 Bronchitis 77615302 J40 [id number] Alysa Tomlin MD [facility] Internal [address] [place] [address] 10/26/2024 12:28:37 10/26/2024 12:55:20 Transition of care 3238687447 105 Z75.8 Acute exac erbation of chronic obstructive pulmonary disease 251582965 J44.1 improvings tart using nebs 2-4 x day prn [id number] Alysa Tomlin MD [facility] Internal [address] [address] 11/16/2024 15:15:25 11/16/2024 17:30:49 Hypothyroidism 51909428 E03.9 under control with meds Essential hypertension 62652047 I10 under control , no meds needed Chronic back pain 239891 002 G89.29 better Anxiety 56762633 F41.9 under control with meds Adult heal th examination 831198883 Z00.00 Colonoscop y- 11/04/2019M ammogram- 11/2022, wants to wait for a year to get it done with dexaDexa-3Pneumo vax - 04/2019,Prevn ar 13- 05/2019FLU -03/2022, 04/2023, 4COVID- 08/29/20, 09/29/20, 04/13/2021 , 03/2022 Coronary arteriosclerosis 79920177 I25.10 stable Allergic rhinitis 987214 04 J30.9 meds help Hyperlipidemia 98182463 E78.5 on meds and under control Anemia 807763316 D64.9 improved Gastroesop hageal reflux disease 608932504 K21.9 stable Hiatal hernia 32417741 K 44.9 s/p surgery, no symptoms Ex-smoker 5617506 Z87.89 1 quit in 2006 Thyroid nodule 554153069 E04.1 small, no more f/u needed Venous varices 457435019 I83.90 using pressure stockings and helps Vitamin D deficiency 347 00160 E55.9 otc History of deep vein thrombosis 641370350 Z86.718 no recurrence Low back pain 052122157 M54.50 better Screening mammography 24 216465 Z12.31 Postmenopausal state 764 59228 Z78.0 Mild chron ic obstructive pulmonary disease 111431852 J44.9 she was a smoker, never had PFT, will order and decide about inhalers Health Concerns Section Related Observation LastModified by Organization Detai ls LastModified Time None Recorded Concern Status LastModified by Organization Details LastModified Time None Recorded Advance Directives Directive N: papers given previously Payers Insurance Date Sequence Insurance Name Policy Number Policy Hernandez Covered Member ID Hernandez Member ID Guarantor Name 11/14/2024 1 [place] - MEDICARE-[address] ASSISTED BOARD (MEDICARE) Tamie German [id number] Tamie German 11/14/2024 2 [facility] - PLAN E (PPO) [id number] Nicho German [id number] Tamie German Notes Date Note Type Note Provider Name and Address Organization Details Recorded Time 01/14/2024 text/html Pt is here for 4 [...] any more, otc Alysa Tomlin MD [address] [facility], [facility] [address], [place], [address], [facility] [employer] 01/14/2024 13:29:20 07/14/2024 text/html Pt is here [...] more, otc Alysa Tomlin MD [address], [place], [address], [facility] 07/14/2024 10:55:03 10/15/2024 text/html Upper Respirator y SymptomsReported bypatient.Location:[facility]; reports congestion Quality:productive cough;colored phlegm;congested;hacki ng cough;wheezy cough Severity:mild Duration:reports 3 days but feels so badly Context:no sick contacts; no foreign travel; ex smoker Associated Symptoms:yellow-green, thick sputum;green sputum started with cough, three days prior, fever on and offreports no sick contactsstopped smoking in 2017 MORALES Singh [address], [place], [address], [facility] 10/15/2024 09:34:51 10/26/2024 text/html Pt is here for a hospital f/u 10/20/24 was discharged for copd exacerbation . (In chart)chart reviewed and discussed Pt is feeling less fatigued everyday but still some SOB especially when using the stairs, walking for long time periods like grocery shopping.she is on Levalbuterol and started on alb nebs but has not started yet.she has no pain in the chest Aylsa Tomlin MD [address], [place], [address], [facility] 10/26/2024 12:51:22 11/16/2024 text/html Pt is here for 4 month f/u. compliant to medications, no side affects,. Pt is fasting (PALAMETTO) Hypothyroidism- on meds, TSH under controlMeds- Levothyroxine 25 mcg daily COPD- using inhalers, much better, ex smoker, never had PFTCAD-- s/p stent dr [place], no symptoms,Meds- Aspirin 81 mg dailyHTN- under control WITHUT MEDSGERD- better without protonix since had hiatal hernia surgeryAnxiety- sleeps fine, no depression symptoms, no side effects, no anxietyMeds- Sertraline 100 mg dailyOsteopenia- on vit D [...] any more, otc Alysa Tomlin MD [address] [facility], [facility] [address], [place], [address], [place] [facility] [email or web address] 11/16/2024 15:58:07 OBGyn Episode No OBEpisode recorded.
--- NOTE | 2024-11-29 16:45 | WPDPFTINT ---
PFT Procedure Performed PFT Procedure Performed Plethysmography (Lung Vol) Diffusing Cap (DLCO) Flow Vol Loop Spirometry w/o Bronchodil PFT Interpretation This is a pulmonary function test with spirometry, plethysmography and diffusing capacity. The test was performed and results interpreted in accordance with the 2019 and 2005 ATS/ERS Task Force guidelines respectively using the Global Lung Function Initiative-2012 reference equations. Patient demonstrated good effort and cooperation. Reproducibility criteria were met. The quality of the spirometry maneuver was Grade A. Findings: Spirometry: The contour the inspiratory and expiratory flow tracing are normal. The FVC is 2.30 L, 90% predicted. The FEV1 is 1.66 L, 84% predicted. The FEV1: FVC ratio 72%. Plethysmography: The total lung capacity is 4.81 L, 98% predicted. The functional residual capacity is 2.71 L, 96% predicted. The residual volume is 2.51 L, 111% predicted. Diffusing capacity: The diffusing capacity unadjusted for hemoglobin and carboxyhemoglobin is 13.2, 68% predicted. The diffusing capacity adjusted for alveolar volume is 3.45, 81% predicted. Impression: The spirometry is normal without evidence of an obstructive abnormality. The lung volumes are normal. The diffusing capacity is normal. There are no prior studies for comparison
== END 2024-11-29 09:17 | disposition home or self-care (01) ==
LOC: ANHPFT 09:18
PROVIDERS: PCP Internal Medicine; Visit Provider Internal Medicine
DX: J44.9 Chronic obstructive pulmonary disease, unspecified (principal)
CPT/HCPCS: 94375; 94726; 94729

== ENCOUNTER 2025-05-04 09:33 | Outpatient (CLI) | payer MEDICARE, OTHER, SELFPAY ==
--- NOTE | ~2025-05-04 | MM_ITS ---
EXAMINATION: MM screening pam BI w taran HISTORY: Screening TECHNIQUE: Craniocaudal and mediolateral oblique 3-D tomosynthesis images were obtained and synthetic 2-D images were generated. CAD analysis was submitted and interpreted. COMPARISON: Comparison to multiple prior studies sequentially, with oldest reviewed study dated , 05/05/2019 BREAST PARENCHYMAL COMPOSITION: Not Dense: There are scattered areas of fibroglandular density. FINDINGS: There is no evidence of suspicious mass, calcification, or architectural distortion to suggest malignancy in either breast. IMPRESSION: 1. No mammographic evidence of malignancy. 2. Recommend routine screening mammography in one year. BI-RADS Category 1: Negative Reviewed, dictated and finalized at location B. 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
--- NOTE | ~2025-05-04 | DEXA_ITS ---
Bone Density Report Name: TERESA BRAR Age: 74 Sex: Female Ethnicity: White Date of : 1950 Indication: osteopenia; height loss; prior fracture; hysterectomy; Referring Provider: ARCHIE, ALYSA Waterman Study: Bone densitometry was performed. Exam Date: May 04, 2025 Accession number: [id number] Bone Density: Region BMD T-score Z-score Classification AP Spine(L1-L4) 0.980 -0.6 1.9 Normal Femoral Neck (Left) 0.575 -2.5 -0.3 Osteoporosis Total Hip (Left) 0.884 -0.5 1.4 Normal Femoral Neck (Right) 0.657 -1.7 0.4 Osteopenia Total Hip (Right) 0.830 -0.9 1.0 Normal Total Hip Mean 0.857 -0.7 1.2 Normal World Health Organization criteria for BMD impression classify patients as: Normal (T-score at or above -1.0), Osteopenia (T-score between -1.0 and -2.5), or Osteoporosis (T-score at or below -2.5). 10-year Fracture Risk: FRAX not reported because: Some T-score for Spine Total or Hip Total or Femoral Neck at or below -2.5 Previous Exams: Region Exam Age BMD T-score BMD Change BMD Change Date g/cm2 vs Baseline vs Previous AP Spine (L1-L4) 05/04/2025 74 0.980 -0.6 0.015 (1.5%) -0.001 (-0.1%) 12/11/2022 72 0.981 -0.6 0.016 (1.7%) 0.016 (1.7%) 05/05/2019 68 0.965 -0.7 Total Hip(Left) 05/04/2025 74 0.884 -0.5 0.019 (2.3%) 0.079 (9.9%)* 12/11/2022 72 0.805 -1.1 -0.060 (-6.9%) -0.060 (-6.9%) 05/05/2019 68 0.865 -0.6 Total Hip(Right) 05/04/2025 74 0.830 -0.9 -0.020 (-2.4%) 0.050 (6.4%)* 12/11/2022 72 0.780 -1.3 -0.071 (-8.3%) -0.071 (-8.3%) 05/05/2019 68 0.851 -0.7 *Denotes significance at 95% confidence level, LSC for AP Spine = 0.022 g/cm2, LSC for Total Hip = 0.027 g/cm2 Clinical Information Provided by Patient: Has had a low trauma fracture Has used the following medications: Vitamin D, Calcium Has the following medical conditions: Hysterectomy Patient maximum height was 64 Menopause Age: 49 Drinks caffeinated beverages Onset of menses at age 10 Number of children 3 Impression: The patient has established osteoporosis, based on the Left Femoral Neck T-score and the existence of a prior fracture. The patient has risk factors, including: previous fracture. No significant bone loss was observed. Discussion: HIGH RISK OF FRACTURE. BONE DENSITY IS UNDESIRABLY LOW AT ONE OR MORE SKELETAL SITES, CONSISTENT WITH POSTMENOPAUSAL OSTEOPOROSIS. This patient's lowest T-score, in a patient who has previously fractured, meets the World Health Organization's (WHO) criteria for severe osteoporosis. In untreated patients, the risk of osteoporotic fracture increases approximately two-fold for each 1.0 SD decrease in T-score. Low bone density is not the only risk factor for fracture; also consider factors such as patient's age, frailty or poor health, risk of falling, risk of injury, previous osteoporotic fracture, family history of osteoporosis, cigarette smoking, low body weight, etc. Not everyone with low bone mineral density has osteoporosis; osteomalacia and other metabolic bone disorders should also be considered. Patients who have osteoporosis should be evaluated for specific diseases and conditions (secondary causes) that may cause or contribute to bone loss. The [place] Association of Clinical Endocrinologists (AACE) and National Osteoporosis Foundation (NOF) recommend pharmacologic intervention for all postmenopausal women whose T-score is in this range. The patient should follow a healthful lifestyle (good nutrition with adequate calcium and vitamin D, and appropriate weight-bearing exercise). Follow-Up: Consider a repeat BMD and Vertebral Fracture Assessment (VFA) exam in 2 years or sooner if medically necessary, to reassess this patient's status. Reported by: CHLOE on 05/04/2025 10:16:00 AM. Reviewed, dictated and finalized at location A.
== END 2025-05-04 09:34 | disposition home or self-care (01) ==
LOC: ANHFOHIMG 09:35
PROVIDERS: PCP Internal Medicine; Visit Provider Internal Medicine
DX: Z12.31 Encounter for screening mammogram for malignant neoplasm of breast (principal); M81.0 Age-related osteoporosis without current pathological fracture; M85.88 Other specified disorders of bone density and structure, other site; Z78.0 Asymptomatic menopausal state
CPT/HCPCS: 77063; 77067; 77080